=== PATIENT | female | born 1940 | race Caucasian/White ===

== ENCOUNTER 2018-10-03 11:25 | Emergency (ER) | payer MEDICARE, BC, SELFPAY ==
[2018-10-03 11:26] VITALS: BP 191/94; BP 192/96; PULSE 100; PULSE 101; RESP 17; RESP 18; TEMP 36.9; O2SAT 98; BMI 31.3
--- NOTE | 2018-10-03 11:48 | EKG12_ITS ---
Test Reason : CHEST HEAVINESS Blood Pressure : / mmHG Vent. Rate : 091 BPM Atrial Rate : 091 BPM P-R Int : 170 ms QRS Dur : 088 ms QT Int : 376 ms P-R-T Axes : 051 016 038 degrees QTc Int : 462 ms Normal sinus rhythm Normal ECG Confirmed by MALLY SCHWARTZ, LALA ([id number]), pictures editor VERO MARIE ([id number]) on 10/04/2018 11:48:46 AM Referred By: LUIS MANUEL Confirmed By:LALA BAL MD
--- NOTE | 2018-10-03 11:52 | ED.VIS.GEN ---
History of Present Illness Chief Complaint: Hypertension Informant: Patient, Family Onset: Today - Systolic blood pressure greater than 200 Context: Sudden Onset Timing: Intermittent, Waxes and wanes Quality: Multiple elevated blood pressure readings over the past week Location: Home Current Severity: Moderate Maximum Severity: Moderate Worsened by: Nothing Relieved by: Nothing Associated Symptoms: Bifrontal headache Narrative: Patient is a 78-year-old woman who is presently on losartan and amlodipine. She reports compliance with her meds and no adjustment in dosage. She does not know the strength of her medication. She denies change in vision, blurred vision, partial or complete loss of vision or double vision. She denies cardiac respiratory symptoms. She denies GI symptoms. She denies difficulty with swallowing or change in voice or difficulty speaking. She denies problems with balance or vertigo. She denies paresthesia, anesthesia motor weakness upper lower extremity. Prior similar symptoms: No Recent Illness/Hospitalization: No Past Medical History - Allergies and Home Meds Allergies/Adverse Reactions: Allergies Sulfa (Sulfonamide Antibiotics) Allergy (Verified 10/03/18 11:26) Unknown Primary Care Physician: Gonsalo Sanchez MD [Primary Care Provider] - Prior records reviewed: Yes - History of depression and hypertension Surgical History: noncontributory Lives: Alone Smoking Status: Current every day smoker Alcohol: None Drugs: None Review of Systems General: Denies: Chills, Fever, Sweats Eyes: Denies: Visual changes - bilaterally, Blurred Vision - bilaterally, Diplopia ENT: Denies: Bilateral ear pain, Rhinorrhea, Sore throat Cardiovascular: Denies: Chest pain, Palpitations, Heart racing Respiratory: Denies: Dyspnea, Cough, Dyspnea on exertion Gastrointestinal: Denies: Abdominal pain, Nausea, Vomiting, Diarrhea, Melena, Hematochezia Genitourinary: Denies: Dysuria, Hematuria, Frequency Musculoskeletal: Denies: Myalgias, Arthralgias, Neck pain, Back pain, Swelling, Extremity Pain Skin: Denies: Rash, Wounds Neurological: Reports: Headache. Denies: Weakness, Parasthesia, Numbness, -, - Psych: Reports: Depression Endocrine: Denies: Polyuria, Polydipsia Hematologic: Denies: Easy bruising, Easy bleeding Physical Exam Vital Signs/Narrative: Vital Signs Temp Pulse Resp BP Pulse Ox 10/03/18 11:26 98.4 F 101 H 17 191/94 H 98 Inital Vital Signs reviewed: Yes General: Well nourished, Well developed, No Acute Distress Head: Normocephalic, Atraumatic Eyes: Perrl, EOMI. Negative for: Pale conjunctiva, Scleral icterus, - - Funduscopic exam reveals normal cup-to-disc ratio and no papilledema. There is no nystagmus. ENT: Moist mucous membranes, No rhinorrhea, TM's clear. Negative for: Nasal congestion, Sinus tenderness Neck: Supple, Nontender, No lymphadenopathy, No JVD Cardiovascular: Regular rate, Regular rhythm, No murmurs, Normal S1, Normal S2 Respiratory: No distress, CTA bilaterally, Chest nontender Abdomen: Soft, Nontender, Nondistended, Normal bowel sounds Back: Nontender, Normal Inspection Extremities: Nontender, No edema Skin: Normal color, No rash Neurological: Alert, Oriented x3, Cranial nerves II-XII grossly intact, Normal Strength, Normal Sensation, Normal DTR, - - Finger-nose to finger was performed adequately. Psychological: Normal affect, Normal Mood Diagnostic/Tx/Re-eval Laboratory Results 10/03/18 10/03/18 12:05 13:40 Sodium 127 L Potassium 4.1 Chloride 94 L Carbon Dioxide 23.0 Anion Gap 10 BUN 8 Creatinine 0.79 Estim Creat Clear Calc 33.84 Est GFR (MDRD) Af Amer 91 Est GFR (MDRD) Non-Af 75 BUN/Creatinine Ratio 10.2 Glucose 120 H Calcium 9.1 Urine Color Straw Urine Clarity Clear Urine pH 7.0 Ur Specific [place] 1.005 Urine Protein Negative Urine Glucose (UA) Normal Urine Ketones Negative Urine Occult Blood Negative Urine Nitrite Negative Urine Bilirubin Negative Urine Urobilinogen Normal Ur Leukocyte Esterase Negative Urine RBC 0 SEEN Urine WBC 0 SEEN Ur Squamous Epith Cells 0 SEEN Urine Bacteria 0 SEEN Urine Mucus 0 SEEN - Medical Decision Making EKG and blood work was obtained to assess for endorgan injury. Will assess blood pressure. If it remains high will treat. Blood work is remarkable hyponatremia. No prior labs for comparison. She denies any symptoms therefore presume chronic. ED Disposition - Plan for ED Patient: Disposition: Home or Assisted Living Diagnosis: Accelerated hypertension, Hyponatremia Instructions: ED Hypertension Conf Out Of Control, ED Hyponatremia Referrals: Gonsalo Sanchez MD [Primary Care Provider] - 5-7 Days
[2018-10-03 12:25] LABS: Anion Gap 10 (5-15); BUN 8 mg/dL (7-18); BUN/Creat Ratio 10.2 RATIO (10-20); Calcium,Total 9.1 mg/dL (8.5-10.1); Chloride 94 mmol/L (98-107); Creatinine, Serum 0.79 mg/dL (0.55-1.02); EST Glomerular Filtration Rate 75 mL/min (>60); Est Glom Filt Rate - Afr Amer 91 mL/min (>60); Estimated Creatinine Clearance 33.84 ml/min; Glucose 120 mg/dL (74-106); Potassium 4.1 mmol/L (3.5-5.1); Sodium Level 127 mmol/L (136-145)
[2018-10-03 13:39] VITALS: BP 158/86; PULSE 77; RESP 16; O2SAT 98
[2018-10-03 13:47] LABS: Bacteria 0 SEEN /hpf (None Seen); Mucous, Urine 0 SEEN /hpf (<or=2+); Red Blood Cells-Urine 0 SEEN /hpf (0-5); Squamous Epithelial Cells - UA 0 SEEN /hpf (5-10); White Blood Cells 0 SEEN /hpf (0-5)
[2018-10-03 13:50] LABS: Color, Urine Straw (Yellow); Glucose, Dipstick Normal (Normal); Ketone-Dipstick Negative (Negative); Leukocyte Esterase-Dipstick Negative /ul (Negative); Nitrite-Dipstick Negative (Negative); Occult Blood-Urine Negative /ul (Negative); Protein-Dipstick Negative (Negative); Specific Gravity, Urine 1.005 (1.002-1.030); Urine Bilirubin Dipstick Negative (Negative); Urine Clarity Clear (Clear); Urine Urobilinogen Normal (Normal)
[2018-10-03 14:12] VITALS: BP 168/81; PULSE 96; RESP 17; O2SAT 100
== END 2018-10-03 14:21 | disposition home or self-care (01) ==
PROVIDERS: Emergency Provider Emergency Medicine; Family Provider Internal Medicine; PCP Internal Medicine
DX: I10 Essential (primary) hypertension (principal); E87.1 Hypo-osmolality and hyponatremia; F32.9 Major depressive disorder, single episode, unspecified; F17.200 Nicotine dependence, unspecified, uncomplicated; Z79.899 Other long term (current) drug therapy
CPT/HCPCS: 80048; 81001; 93005; 99285

== ENCOUNTER → 2019-10-18 11:11 | Outpatient (CLI) | payer MEDICARE, BC, SELFPAY ==
[2019-10-18 11:41] LABS: BNP,B-Type NATRIURETIC PEPTIDE 215.6 pg/mL (0-100)
== END ==
PROVIDERS: Referring Provider Nurse Practitioner; Visit Provider Nurse Practitioner
DX: R60.0 Localized edema (principal); R06.02 Shortness of breath
CPT/HCPCS: 83880

== ENCOUNTER 2020-04-23 18:04 | Inpatient (IN) | payer MEDICARE, BC, SELFPAY ==
[2020-04-23] VITALS (7 sets, daily range): BP systolic 123–151; BP diastolic 56–69; PULSE 76–90; RESP 15–26; TEMP 37–37.2; O2SAT 94–100; BMI 29.5
--- NOTE | 2020-04-23 18:54 | EKG12_ITS ---
Test Reason : SOB Blood Pressure : / mmHG Vent. Rate : 079 BPM Atrial Rate : 079 BPM P-R Int : 112 ms QRS Dur : 078 ms QT Int : 400 ms P-R-T Axes : 035 005 033 degrees QTc Int : 458 ms Sinus rhythm with Premature supraventricular complexes Nonspecific T wave abnormality Abnormal ECG Confirmed by MICHAEL SCHWARTZ, NAHEED ([id number]), legal editor NERISSA OSBORN ([id number]) on 04/25/2020 10:50:14 AM Referred By: Regan Ulrich Confirmed By:NAHEED RODRIGUEZ MD
--- NOTE | 2020-04-23 19:18 | ED.DCSUM_ITS ---
History of Present Illness Chief Complaint: Shortness of Breath Informant: Patient, Family Onset: Days Context: Gradual Onset Timing: Continuous Current Severity: Moderate Maximum Severity: Moderate Narrative: The patient is a 79-year-old female presents to the emergency department multiple complaints. The patient lives by herself. She has a history of hypertension, anxiety, and prior alcohol abuse. She states that about a month ago, she fell. She states since then, she had a difficult time walking because of pain in her right leg. Over the past 2 days, she has been increasingly weak and short of breath. She denies fevers or chills. She denies any change in taste or smell. She denies any other systemic complaints. History is hard to gather from the patient. I did discuss this with her daughter who states that she seemed to be doing well, but over the past month has had more of a decline. She does live by herself. Prior similar symptoms: No Recent Illness/Hospitalization: No Past Medical History - Allergies and Home Meds Allergies/Adverse Reactions: Allergies Sulfa (Sulfonamide Antibiotics) Allergy (Verified 04/23/20 18:10) Unknown Primary Care Physician: Gonsalo Sanchez MD [Primary Care Provider] - Prior records reviewed: Yes Past Medical History: - - Prior alcohol abuse, hypertension, anxiety Surgical History: noncontributory Smoking Status: Current every day smoker Review of Systems General: Denies: Chills, Fever, Sweats Eyes: Denies: Visual changes - bilaterally, Diplopia ENT: Denies: Rhinorrhea, Sore throat Cardiovascular: Denies: Chest pain, Palpitations Respiratory: Reports: Dyspnea, Cough. Denies: Dyspnea on exertion Gastrointestinal: Reports: Nausea. Denies: Abdominal pain, Vomiting, Diarrhea, Melena, Hematochezia Genitourinary: Denies: Dysuria, Hematuria, Frequency Musculoskeletal: Denies: Back pain, Extremity Pain Skin: Denies: Rash, Wounds Neurological: Denies: Headache, Weakness, Numbness Physical Exam Vital Signs/Narrative: Vital Signs Temp Pulse Resp BP Pulse Ox 04/23/20 18:09 98.9 F 83 26 H 128/69 H 94 04/23/20 18:04 98.9 F 83 20 H 128/69 H 94 Inital Vital Signs reviewed: Yes General: Well nourished, Well developed, No Acute Distress Head: Normocephalic, Atraumatic Eyes: Perrl, EOMI ENT: Moist mucous membranes, No rhinorrhea Neck: Supple, Nontender Cardiovascular: Regular rate, Regular rhythm, No murmurs Respiratory: No distress, Chest nontender, Wheezing Abdomen: Soft, Nontender, Nondistended, Normal bowel sounds Back: Nontender, Normal Inspection Extremities: Nontender, No edema Skin: Normal color, No rash Neurological: Alert, Oriented x3, Cranial nerves II-XII grossly intact, Normal Strength, Normal Sensation Psychological: Normal affect, Normal Mood Diagnostic/Tx/Re-eval Chest X-Ray - ED: 1 View, Read by ED Physician, Normal, Heart, Mediastinum, Bony Structures, Chronic Changes, No Infiltrates Clinical Impression(s) from Imaging Studies Brain CT 04/23/20 19:20 IMPRESSION: Possible sphenoid sinusitis otherwise no acute intracranial disease Electronically Signed: German Huerta MD at 20:42 EST , Service support , Chest X-Ray 04/23/20 19:20 IMPRESSION: No acute disease Electronically Signed: German Huerta MD at 21:11 EST , Service support , Abnormal Lab Results 04/23/20 04/23/20 04/23/20 19:15 19:15 19:15 WBC 7.0 RBC 4.51 Hgb 14.3 Hct 41.8 MCV 92.7 MCH 31.7 MCHC 34.2 RDW Std Deviation 43.3 RDW Coeff of Kacy 12.5 Plt Count 243 MPV 10.1 Immature Gran % (Auto) 0.400 Neut % (Auto) 78.2 H Lymph % (Auto) 11.5 L [place] % (Auto) 9.8 Eos % (Auto) 0.0 Baso % (Auto) 0.1 Absolute Neuts (auto) 5.5 Absolute Lymphs (auto) 0.81 L Nucleated RBC % 0 Sodium 133 L Potassium 3.7 Chloride 101 Carbon Dioxide 23.0 Anion Gap 9 BUN 22 H Creatinine 1.19 H Estim Creat Clear Calc 27.99 Est GFR (MDRD) Af Amer 56 L Est GFR (MDRD) Non-Af 47 L BUN/Creatinine Ratio 18.5 Glucose 129 H Calcium 8.8 Total Bilirubin 0.70 AST 50 H ALT 30 Alkaline Phosphatase 91 Troponin I < 0.015 B-Natriuretic Peptide 101.3 H Total Protein 7.8 Albumin 4.1 Globulin 3.7 Albumin/Globulin Ratio 1.1 Urine Color Urine Clarity Urine pH Ur Specific [place] Urine Protein Urine Glucose (UA) Urine Ketones Urine Occult Blood Urine Nitrite Urine Bilirubin Urine Urobilinogen Ur Leukocyte Esterase Urine RBC Urine WBC Ur Squamous Epith Cells Amorphous Sediment Urine Bacteria Urine Mucus 04/23/20 20:35 WBC RBC Hgb Hct MCV MCH MCHC RDW Std Deviation RDW Coeff of Kacy Plt Count MPV Immature Gran % (Auto) Neut % (Auto) Lymph % (Auto) [place] % (Auto) Eos % (Auto) Baso % (Auto) Absolute Neuts (auto) Absolute Lymphs (auto) Nucleated RBC % Sodium Potassium Chloride Carbon Dioxide Anion Gap BUN Creatinine Estim Creat Clear Calc Est GFR (MDRD) Af Amer Est GFR (MDRD) Non-Af BUN/Creatinine Ratio Glucose Calcium Total Bilirubin AST ALT Alkaline Phosphatase Troponin I B-Natriuretic Peptide Total Protein Albumin Globulin Albumin/Globulin Ratio Urine Color Yellow Urine Clarity Clear Urine pH 5.0 Ur Specific [place] 1.020 Urine Protein 30 H Urine Glucose (UA) Normal Urine Ketones 50 H Urine Occult Blood 25 H Urine Nitrite Negative Urine Bilirubin Negative Urine Urobilinogen 1 H Ur Leukocyte Esterase Negative Urine RBC 0 SEEN Urine WBC 0 SEEN Ur Squamous Epith Cells 0 SEEN Amorphous Sediment 1+ Urine Bacteria 1+ Urine Mucus 0 SEEN - Rhythm Strip Rhythm Strip: Sinus Rhythm Rate: 80 Ectopy: None - Medical Decision Making Patient presents to the emergency department multiple complaints. Over the past few days, she has been more short of breath. She has had a scant cough. She denies any fevers or chills. Covid was obtained was negative. Her chest x-ray does not show any focal infiltrative process. It was reviewed by both myself and the radiologist. I obtained head CT given her generalized weakness. This was also negative. Urine does not show evidence of infection. Patient's labs are relatively unremarkable. She did have pain in her right hip after her fall. I did obtain some plain films. These were reviewed by myself. There is no evidence of fracture dislocation. The patient has persistent bronchospasm and exertional dyspnea. We did attempt to ambulate the patient, however she became acutely tachypneic with some moderate respiratory distress. With just standing to the bedside, she became hypoxic to 87%. At this point, I do feel that she would benefit from admission for COPD exacerbation for continued respiratory care. The patient was discussed with the hospitalist. Impression 1. COPD exacerbation 2. Difficulty with ambulation ED Disposition - Plan for ED Patient: Referrals: Gonsalo Sanchez MD [Primary Care Provider] -
--- NOTE | 2020-04-23 19:20 | RAD_ITS ---
STUDY: X-RAY CHEST REASON FOR EXAM: Female, 79 years old. INCREASED SOB, WEAKNESS. TECHNIQUE: Single frontal view of the chest. COMPARISON: 12/18/2010 FINDINGS: Bilateral calcified granulomas. The lungs are clear and expanded. There is no demonstrated pleural abnormality. Normal size heart. Calcified left hilar nodes. Normal visualized pulmonary arteries. Normal visualized aortic arch and descending thoracic aorta. Scoliosis. Normal visualized ribs, clavicles, and shoulders. There is no demonstrated abnormality of the visualized soft tissue structures of the upper abdomen. RAD/Chest 1 View (Portable) IMPRESSION: No acute disease Electronically Signed: German Huerta MD at 21:11 EST , Service support ,
--- NOTE | 2020-04-23 19:20 | CT_ITS ---
STUDY: CT BRAIN WITHOUT CONTRAST REASON FOR EXAM: Female, 79 years old. INCREASE SOB WITH WEAKNESS RADIATION DOSAGE (If Supplied By Facility): CTDIvol = ( 44.99 ) mGy, DLP = ( 762.36 ) mGycm TECHNIQUE: Transaxial CT imaging of the brain was performed without administration of intravenous contrast material. Individualized dose optimization techniques were used for this CT. COMPARISON: No relevant priors. FINDINGS: Normal soft tissue structures. Normal calvarium. There is mild cerebral atrophy with widening of the extra-axial spaces and ventricular dilatation. There are areas of decreased attenuation within the white matter tracts of the supratentorial brain, consistent with microvascular disease changes. Intracranial atherosclerosis. Normal basal ganglia and thalami. Normal brainstem. Normal cerebellum. There is no intracranial hemorrhage. There are no findings of an acute ischemic infarction. Air-fluid level in the sphenoid sinus. CT/Brain/Head without Contrast IMPRESSION: Possible sphenoid sinusitis otherwise no acute intracranial disease Electronically Signed: German Huerta MD at 20:42 EST , Service support ,
[2020-04-23 19:32] LABS: Absolute Lymphocyte Count 0.81 X10^3/uL (0.83-4.51); Absolute Neutrophil Count 5.5 X10^3/uL (2.0-7.7); Basophil# 0.01 X10^3/uL; Basophil% 0.1 % (0-1); Hematocrit 41.8 % (37-47); Hemoglobin 14.3 g/dL (12.0-15.0); Lymphocyte # 0.81 X10^3/ul (4.0); Lymphocyte % 11.5 % (19-41); Mean Corp Hgb Conc 34.2 g/dL (32-36); Mean Corpuscular Hgb 31.7 pg (27.0-32.0); Mean Corpuscular Volume 92.7 fL (81-99); Mean Platelet Vol. 10.1 fl (6.2-12.0); Monocyte# 0.69 X10^3/uL; Monocyte% 9.8 % (0-10); NRBC Flagged by Analyzer 0 % (0-5); Neutrophil # 5.49 X10^3/uL (2.7-7.7); Neutrophil % 78.2 % (47-70); Platelet Count 243 K/mm3 (150-450); RBC Distribution Width CV 12.5 % (11.6-14.6); RBC Distribution Width SD 43.3 fl (35.1-43.9); Red Blood Count 4.51 M/mm3 (4.2-5.4)
[2020-04-23 19:54] LABS: BNP,B-Type NATRIURETIC PEPTIDE 101.3 pg/mL (0-100)
[2020-04-23 19:56] LABS: ALB/GLOB Ratio 1.1 RATIO (0.9-2.4); AST(SGOT) 50 U/L (15-37); Alanine Aminotransfer ALT/SGPT 30 U/L (13-56); Albumin, Serum 4.1 g/dL (3.2-5.0); Alkaline Phosphatase 91 U/L (45-117); Anion Gap 9 (5-15); BUN 22 mg/dL (7-18); BUN/Creat Ratio 18.5 RATIO (10-20); Calcium,Total 8.8 mg/dL (8.5-10.1); Chloride 101 mmol/L (98-107); Creatinine, Serum 1.19 mg/dL (0.55-1.02); EST Glomerular Filtration Rate 47 mL/min (>60); Est Glom Filt Rate - Afr Amer 56 mL/min (>60); Estimated Creatinine Clearance 27.99 ml/min; Globulin 3.7 g/dL (2.2-4.2); Glucose 129 mg/dL (74-106); Potassium 3.7 mmol/L (3.5-5.1); Protein, Total 7.8 g/dL (6.4-8.2); Sodium Level 133 mmol/L (136-145)
[2020-04-23 20:49] LABS: Mucous, Urine 0 SEEN /hpf (<or=2+); Red Blood Cells-Urine 0 SEEN /hpf (0-5); Squamous Epithelial Cells - UA 0 SEEN /hpf (5-10); White Blood Cells 0 SEEN /hpf (0-5)
[2020-04-23 20:56] LABS: Color, Urine Yellow (Yellow); Glucose, Dipstick Normal (Normal); Ketone-Dipstick 50 mg/dl (Negative); Leukocyte Esterase-Dipstick Negative /ul (Negative); Nitrite-Dipstick Negative (Negative); Occult Blood-Urine 25 /ul (Negative); Protein-Dipstick 30 mg/dl (Negative); Urine Bilirubin Dipstick Negative (Negative); Urine Clarity Clear (Clear); Urine Urobilinogen 1 mg/dl (Normal)
[2020-04-23 20:58] LABS: Amorphous Sediment 1+; Bacteria 1+ /hpf (None Seen)
--- NOTE | 2020-04-23 21:08 | RAD_ITS ---
STUDY: X-RAY - PELVIS AND RIGHT HIP REASON FOR EXAM: Female, 79 years old. FALL ABOUT A MONTH AGO, DIFFICULTY WALKING SINCE, PAIN IN RT LEG TECHNIQUE: 3 views of the pelvis and hip. COMPARISON: None. FINDINGS: There is a non-specific bowel gas pattern. Normal visualized soft tissue structures. Small ossific density lateral to the acetabulum on the right. Normal bilateral iliac wings, sacroiliac joints and visualized sacrum. Normal bilateral superior and inferior pubic rami. Normal pubic symphysis. Normal bilateral ischial tuberosities. Normal visualized femoral head. Normal acetabulum. Normal hip joint. RAD/HIP, UNI W/ Pelvis 2-3 Views IMPRESSION: Probable periarticular dystrophic calcification versus avulsion fracture, age indeterminate, superior lateral to the acetabulum on the right. Electronically Signed: German Huerta MD at 22:10 EST , Service support ,
[2020-04-23] MEDS: Ipratropium/Albuterol Sulfate 3 ML AMPUL.NEB INHALATION (21:40)
--- NOTE | 2020-04-23 21:43 | ED.RN ---
PT WAS ONLY ABLE TO SIT AT THE SIDE OF BED. SHAKY AND DYSPNEA WITH EXERTION. UNABLE TO AMBULATE
--- NOTE | 2020-04-23 21:51 | ED.RN ---
DAUGHTER CONTACTED IN REGARDS TO ADMISSION. NOTIFIED SHE WOULD BE ADMITTED BUT UNSURE OF WHAT FLOOR YET. DAUGHTER UNDERSTANDS SHE WILL CALL THE [facility] LINE IN THE MORNING TO FIND WHERE SHE GOT ADMITTED AND GO FROM THERE.
[2020-04-23] MEDS: MethylPREDNISolone 125 MG/2 ML Vial IV (22:00)
--- NOTE | 2020-04-23 23:19 | HP.PCM_ITS ---
Problem List (1) History of alcohol abuse Status: Chronic (2) Depression Status: Chronic (3) Hypertension Status: Chronic History of Present Illness Date of Admission: 04/23/20 Chief Complaint: Reported shortness of breath, patient is a very poor informant. The patient is a 79 year old F with past medical history as mentioned above presented to the emergency room because of reported shortness of breath. At this time, patient is alert and oriented x3 but she is a very poor informant. She mentioned that she lives with her and daughter but reportedly, she lives by herself. She came to the emergency department today because of multiple complaints. She has been falling, had a mechanical fall around 1 month ago and since then, she has been having difficulties walking because of pain in her right leg. Over the last 2 days, reportedly she became increasingly weak and short of breath. She reported associated wheezing as well and mild cough. Denied fever or chills. ER physician spoke with the patient's daughter mentioned that her mother has been declining over the last month and she does live by herself. She rested hypertension which has been under control with Norvasc and losartan. She will history of depression and she has been on BuSpar and paroxetine. She history of alcohol abuse but currently, she is sober and denied active alcohol drinking. In the emergency department, she was afebrile, blood pressure and heart rate were stable, pulse ox was 94% on room air and she required 2 L of oxygen. Routine blood work was remarkable for mild hyponatremia which is chronic, BUN of 22, creatinine is 1.19. LFT was unremarkable. Troponin was normal. EKG showed no acute changes. Urinalysis showed no evidence of active infection. CT scan brain showed no acute findings. Chest x- ray showed no acute infiltrate or consolidation. X-ray of the pelvis and right hip revealed probable periarticular dystrophic calcification versus avulsion f racture superior lateral to the right acetabulum. COVID-19 antigen came back negative. COVID-19 PCR came back positive. Patient is being admitted for COVID-19 with hypoxia as well as left hip pain with suspected avulsion fracture. Past Medical History Past Medical History (Chronic Problems): Chronic Problems History of alcohol abuse (Chronic) Depression (Chronic) Hypertension (Chronic) Allergies Sulfa (Sulfonamide Antibiotics) Allergy (Verified 04/23/20 18:10) Unknown Home Medications: Ambulatory Orders Medication Instructions Recorded Amlodipine [Norvasc] 5 mg PO DAILY 10/03/18 Losartan Potassium 100 mg PO DAILY 10/03/18 Pantoprazole Sodium 40 mg PO DAILY 10/03/18 Paroxetine HCl [Paroxetine ER] 37.5 mg PO DAILY 10/03/18 busPIRone [Buspar] 15 mg PO TID PRN 10/03/18 Surgical History: hysterectomy, - - section. Psychiatric History: Depression OBSTETRICS/GYNECOLOGY NURSE History: No pertinent OBSTETRICS/GYNECOLOGY NURSE history Lives: Alone Smoking Status: Current some day smoker Tobacco Use: Cigarettes Alcohol: Rare Drugs: None - *Family History Maternal History Items: No pertinent history Paternal History Items: No pertinent history Review of Systems Constitutional: Denies: Anorexia, Chills, Fever, Weakness Eyes: Denies: Blurred vision, Double vision, Drainage, Redness HEENT: Denies: Difficulty Hearing, Ear Pain, Eye Pain, Nasal Congestion, Sore Throat Cardiovascular: Denies: Chest Pain, Chest Pressure, Heaviness, Light Headedness, Palpitations, Syncope Respiratory: Reports: Cough, Shortness of Breath, Wheezing. Denies: Sputum production Gastrointestinal: Denies: Abdominal Pain, Constipation, Diarrhea, Nausea, Vomiting Genitourinary: Denies: Dysuria, Frequency, Hematuria Musculoskeletal: Denies: Arm Pain, Back Pain, Foot Pain Skin: Denies: Dryness, Rash Neurological: Denies: Balance problems, Double vision, Change in Speech, Slurred speech, Confusion, Headaches, Incoordination Psychiatric: Reports: Depression. Denies: Anxiety Endocrine: Denies: Change in Body Habitus, Polydipsia, Polyuria VTE Information - Inpt Only VTE Present on Admission: No VTE Mechan Device Prophylaxis: None VTE Pharm Prophylaxis ordered?: Yes - Physical Exam Vitals/I&O's: Vital Signs Temp Pulse Resp BP Pulse Ox 98.6 F 79 15 151/66 H 96 04/23/20 22:03 04/23/20 22:03 04/23/20 22:03 04/23/20 22:03 04/23/20 22:03 Oxygen Flow Rate (L/min) 2 Oxygen Delivery Method Nasal Cannula Weight: 151 lb Body Mass Index (BMI) 29.5 General: Alert, Oriented x3, Cooperative, No apparent distress HEENT: Atraumatic, PERRLA, EOMI, Normocephalic Oral: Moist Mucosa, No Gingival or Mucosal Lesions/ Ulcerations Neck: Supple, No JVD, Negative Carotid Bruits Lungs: Clear to auscultation, No rhonchi, No wheeze, No rales, Diminished Cardiovascular: Regular rate, Regular Rhythm, Normal S1, Normal S2, PMI Normal Abdomen: Bowel Sounds Present, Soft, Non Tender, Non-Distended, No Hepato- splenomegaly Extremities: No clubbing, No cyanosis, No edema Skin: No rashes, No breakdown Lymphatic: No Cervical, Supraclavicular, or Inguinal Adenopathy Neurological: Cranial nerves II-XII grossly intact, Motor Exam 5/5 strength throughout Psych/Mental Status: Normal Affect, Appropriate Microbiology Past 72 Hours 04/23/20 20:20 Mucosa - Nose SARS-CoV-2 Antigen (Rapid) - Final Laboratory Results 04/23/20 19:15: WBC 7.0, RBC 4.51, Hgb 14.3, Hct 41.8, MCV 92.7, MCH 31.7, MCHC 34.2, RDW Std Deviation 43.3, RDW Coeff of Kacy 12.5, Plt Count 243, MPV 10.1, Immature Gran % (Auto) 0.400, Neut % (Auto) 78.2 H, Lymph % (Auto) 11.5 L, Ocean % (Auto) 9.8, Eos % (Auto) 0.0, Baso % (Auto) 0.1, Absolute Neuts (auto) 5.5, Absolute Lymphs (auto) 0.81 L, Nucleated RBC % 0 04/23/20 19:15: Sodium 133 L, Potassium 3.7, Chloride 101, Carbon Dioxide 23.0, Anion Gap 9, BUN 22 H, Creatinine 1.19 H, Estim Creat Clear Calc 27.99, Est GFR (MDRD) Af Amer 56 L, Est GFR (MDRD) Non-Af 47 L, BUN/Creatinine Ratio 18.5, Glucose 129 H, Calcium 8.8, Total Bilirubin 0.70, AST 50 H, ALT 30, Alkaline Phosphatase 91, Troponin I < 0.015, Total Protein 7.8, Albumin 4.1, Globulin 3.7, Albumin/Globulin Ratio 1.1 04/23/20 19:15: B-Natriuretic Peptide 101.3 H 04/23/20 20:35: Urine Color Yellow, Urine Clarity Clear, Urine pH 5.0, Ur Specific [place] 1.020, Urine Protein 30 H, Urine Glucose (UA) Normal, Urine Ketones 50 H, Urine Occult Blood 25 H, Urine Nitrite Negative, Urine Bilirubin Negative, Urine Urobilinogen 1 H, Ur Leukocyte Esterase Negative, Urine RBC 0 SEEN, Urine WBC 0 SEEN, Ur Squamous Epith Cells 0 SEEN, Amorphous Sediment 1+, Urine Bacteria 1+, Urine Mucus 0 SEEN 04/23/20 22:30: COVID-19 (ROXANA) Pending Clinical Impression(s) from Imaging Studies Brain CT 04/23/20 19:20 IMPRESSION: Possible sphenoid sinusitis otherwise no acute intracranial disease Electronically Signed: German Huerta MD at 20:42 EST , Service support , Chest X-Ray 04/23/20 19:20 IMPRESSION: No acute disease Electronically Signed: German Huerta MD at 21:11 EST , Service support , Hip/Pelvis X-Ray 04/23/20 21:08 IMPRESSION: Probable periarticular dystrophic calcification versus avulsion fracture, age indeterminate, superior lateral to the acetabulum on the right. Electronically Signed: German Huerta MD at 22:10 EST , Service support , Assessment/Plan This is a 79 years old female patient who is a very poor informant presented to the emergency room because of reported frequent falls and shortness of breath, found to have COVID-19 PCR positive with possible acute exacerbation of suspected COPD as well as questionable right hip avulsion fracture and she is being admitted for evaluation and treatment. #1 acute COVID-19/possible exacerbation of suspected COPD: Patient is very poor informant, she does not know if she has COPD or not. She does smoke every day for a long time. She is currently wheezing, requiring oxygen up 4 L, initially was on 2 L. Chest x-ray showed no acute findings. She received 1 dose of IV Solu-Medrol in the ED. COVID-19 antigen is negative but COVID-19 PCR came back positive. Plan: Admit to MedSurg floor COVID-19 floor, isolation precautions, start IV Decadron and IV remdesivir, albuterol inhaler as needed, infectious disease consult, Robitussin twice daily, incentive spirometer, check serum LDH, procalcitonin, D-dimer, CPK, repeat CBC and BMP tomorrow morning, PT OT evaluation and treatment. #2 recent fall/right leg/right hip pain: X-ray of the pelvis and right hip reviewed. Plan for CT scan of the right hip, IV morphine as needed for pain, OxyIR as needed for pain, PT OT evaluation and treatment. #3 mild hyponatremia/dehydration: She does have chronic hyponatremia likely because of history of alcohol abuse. She looks dehydrated. Plan for gentle IV fluids for hydration, repeat BMP tomorrow morning. #4 hypertension: Blood pressure stable, continue Norvasc and losartan. #5 depression: Continue BuSpar and paroxetine. #6 history of alcohol abuse: Currently, she drinks only occasionally according to the patient. #7 DVT prophylaxis: Subcu Lovenox twice daily. This note was generated with [employer] dictation software. It may contain incorrect words, spelling, and punctuation that were not noted in checking the note before signing. Inpatient E&M: 57085 Init Hosp L3
[2020-04-24] VITALS (14 sets, daily range): BP systolic 112–151; BP diastolic 46–78; PULSE 75–94; RESP 16–24; TEMP 36.3–36.8; O2SAT 88–96; BMI 29.2; BMI 29.3
[2020-04-24] MEDS: Ipratropium/Albuterol Sulfate 3 ML AMPUL.NEB INHALATION (00:18)
--- NOTE | 2020-04-24 02:08 | CT_ITS ---
STUDY: CT PELVIS WITHOUT CONTRAST REASON FOR EXAM: Female, 79 years old patient presents for follow-up of radiographic findings suggesting avulsion fracture of the right femur. RADIATION DOSAGE (If Supplied By Facility): CTDIvol = ( 28.13 ) mGy, DLP = ( 932.51 ) mGycm TECHNIQUE: Transaxial imaging of the pelvis was performed without oral contrast, and without intravenous administration of contrast material. Multiplanar coronal and sagittal images were reformatted. Individualized dose optimization techniques were used for this CT. COMPARISON: None. FINDINGS: Normal urinary bladder. There is no evidence for dilated bowel, ascites or pneumoperitoneum. Small bowel has a grossly normal appearance. Minimal stool is visible in the colon. There is no pelvic fluid. There is no pelvic mass lesion or lymphadenopathy. There is absence of the uterus consistent with a prior hysterectomy. There is diffuse atherosclerotic calcification of the pelvic arteries. Normal abdominal wall. There is narrowing of L4-5 disc space with vacuum disc phenomenon consistent with degenerative disc disease. Both hips have a normal appearance. There is a small calcification near the right superior acetabulum that may represent the sequela of previous trauma. Superior and inferior pubic rami within normal limits. The proximal femurs have a normal appearance. CT/Pelvis without IV Contrast IMPRESSION: 1. Nonspecific calcification and/or ossification near the right superior lateral acetabulum. This is probably not sequela of acute trauma. 2. There is no CT evidence to suggest acute fracture or dislocation.. Electronically Signed: Morena Estrada MD at 4:18 EST , Service support ,
[2020-04-24 02:40] LABS: CPK Total, Creatine Kinase 995 U/L (26-192)
[2020-04-24 02:47] LABS: Procalcitonin 0.09 ng/mL (0.00-0.09)
[2020-04-24] MEDS: dexAMETHasone 4 MG/ML Vial 6 MG IV ×2 (03:50→09:08)
[2020-04-24] MEDS: 0.9% Normal Saline 1,000 ML 75 ML IV (03:50)
[2020-04-24] MEDS: 0.9% Saline Lock 10 ML Syringe IV ×2 (03:54→09:09)
[2020-04-24 06:50] LABS: Bedside Glucose 182 mg/dL (70-110)
[2020-04-24 07:17] LABS: Absolute Lymphocyte Count 0.42 X10^3/uL (0.83-4.51); Absolute Neutrophil Count 2.7 X10^3/uL (2.0-7.7); Basophil# 0.01 X10^3/uL; Basophil% 0.3 % (0-1); Hemoglobin 14.1 g/dL (12.0-15.0); Lymphocyte # 0.42 X10^3/ul (4.0); Lymphocyte % 12.8 % (19-41); Mean Corp Hgb Conc 35.3 g/dL (32-36); Mean Corpuscular Hgb 32.7 pg (27.0-32.0); Mean Corpuscular Volume 92.8 fL (81-99); Mean Platelet Vol. 9.9 fl (6.2-12.0); Monocyte# 0.11 X10^3/uL; Monocyte% 3.3 % (0-10); NRBC Flagged by Analyzer 0 % (0-5); Neutrophil # 2.73 X10^3/uL (2.7-7.7); POSITIVE DIFFERENTIAL YES; Platelet Count 230 K/mm3 (150-450); RBC Distribution Width CV 12.7 % (11.6-14.6); Red Blood Count 4.31 M/mm3 (4.2-5.4); White Blood Count 3.3 K/mm3 (4.4-11.0)
[2020-04-24 07:21] LABS: Differential Indicated SCAN CRITERIA MET
[2020-04-24 07:28] LABS: Prothrombin Time (Protime)PT. 12.4 SECONDS (11.7-14.9)
[2020-04-24 07:38] LABS: D-Dimer Quantitative (DVT/PE) 2.26 FEU/ug/m (0.27-0.49)
--- NOTE | 2020-04-24 07:41 | CT_ITS ---
STUDY: CTA CHEST REASON FOR EXAM: Female, 79 years old. SOB, + COVID, HTN, FALLS-LT HIP AVULSION RADIATION DOSAGE (If Supplied By Facility): CTDIvol = ( 9.38 ) mGy, DLP = ( 327.94 ) mGycm TECHNIQUE: The examination was performed with the intravenous administration of IV 100mL Isovue-370. Post-processing of the angiographic images was performed, with multiplanar reformation and 3D reconstruction. Individualized dose optimization techniques were used for this CT. COMPARISON: Comparison is made with prior chest radiograph dated 04/23/2020. FINDINGS: Normal enhancement of the main pulmonary artery and right and left pulmonary arteries. Normal enhancement of the bilateral peripheral pulmonary arteries. There is no demonstrated pulmonary embolism. There is atherosclerotic calcification of the aortic arch with tortuosity. There is no demonstrated aortic dissection. Normal heart and pericardium. There are calcified mediastinal lymph nodes. There are calcified left hilar lymph nodes. Normal visualized trachea and bronchi. The lungs are well expanded. Scattered calcified granulomas. Focal infiltrate in the posterior medial segment of the right lower lobe. Minimal increased markings in the posterior medial aspect of the left lower lobe. Minimal degree of groundglass appearance in the peripheral aspect of the left upper lobe. Normal pleura. Normal chest wall structures. There are degenerative changes of thoracic spine. Small hiatal hernia. CT/CTA Chest W/WO Contrast IMPRESSION: No evidence of pulmonary embolism. Focal infiltrate in the posterior medial segment of the right lower lobe. Mild increased markings at the left lung base as well as in the peripheral aspect of the left upper lobe. Electronically Signed: Lux Osorio, at 10:23 EST , Service support ,
[2020-04-24 07:52] LABS: ALB/GLOB Ratio 1.1 RATIO (0.9-2.4); AST(SGOT) 41 U/L (15-37); Alanine Aminotransfer ALT/SGPT 28 U/L (13-56); Albumin, Serum 3.6 g/dL (3.2-5.0); Alkaline Phosphatase 81 U/L (45-117); Anion Gap 8 (5-15); BUN 21 mg/dL (7-18); BUN/Creat Ratio 22.6 RATIO (10-20); Calcium,Total 8.4 mg/dL (8.5-10.1); Chloride 105 mmol/L (98-107); Creatinine, Serum 0.93 mg/dL (0.55-1.02); EST Glomerular Filtration Rate 62 mL/min (>60); Est Glom Filt Rate - Afr Amer 75 mL/min (>60); Estimated Creatinine Clearance 37.62 ml/min; Globulin 3.2 g/dL (2.2-4.2); Glucose 175 mg/dL (74-106); Potassium 3.9 mmol/L (3.5-5.1); Protein, Total 6.8 g/dL (6.4-8.2); Sodium Level 138 mmol/L (136-145)
[2020-04-24] MEDS: Enoxaparin 80 MG/0.8 ML Syringe 70 MG SC ×2 (09:08→21:11)
[2020-04-24] MEDS: guaiFENesin 600 MG Tablet PO ×2 (09:09→21:11)
--- NOTE | 2020-04-24 11:05 | CON.PCM_ITS ---
Problem List (1) COVID-19 Status: Acute Reason for Consult: covid Consulted by: Dr. Kim History of Present Illness: The patient is a 79 year old F presented with 2-3 days of weakness, cough, dyspnea, mild nausea. No fever, no change in taste smell. No diarrhea. Lives alone, no sick contacts. Came to ED, covid (+), admitted on remdesivir and dex. Feeling better today. Full ROS performed and neg except as noted above. - Medical History Past Medical History (Chronic Problems): Chronic Problems History of alcohol abuse (Chronic) Depression (Chronic) Hypertension (Chronic) Allergies/Adverse Reactions: Allergies Sulfa (Sulfonamide Antibiotics) Allergy (Verified 04/23/20 18:10) Unknown Home Medications: Ambulatory Orders Medication Instructions Recorded Amlodipine [Norvasc] 5 mg PO DAILY 10/03/18 Losartan Potassium 100 mg PO DAILY 10/03/18 Pantoprazole Sodium 40 mg PO DAILY 10/03/18 Paroxetine HCl [Paroxetine ER] 37.5 mg PO DAILY 10/03/18 busPIRone [Buspar] 15 mg PO TID PRN 10/03/18 - Social History SMOKING STATUS:: Current some day smoker Vital Signs Temp Pulse Resp BP Pulse Ox 97.8 F 94 20 H 147/77 H 93 04/24/20 09:00 04/24/20 09:00 04/24/20 09:00 04/24/20 09:00 04/24/20 09:00 Oxygen Flow Rate (L/min) 4 Oxygen Delivery Method Room Air Weight: 70.3 kg Body Mass Index (BMI) 29.2 Microbiology Past 72 Hours 04/23/20 20:20 SARS-CoV-2 Antigen (Rapid) - Final Mucosa - Nose Laboratory Tests Past 24 Hrs 04/23/20 04/23/20 04/23/20 19:15 19:15 19:15 WBC 7.0 RBC 4.51 Hgb 14.3 Hct 41.8 MCV 92.7 MCH 31.7 MCHC 34.2 RDW Std Deviation 43.3 RDW Coeff of Kacy 12.5 Plt Count 243 MPV 10.1 Immature Gran % (Auto) 0.400 Neut % (Auto) 78.2 H Lymph % (Auto) 11.5 L Lucas % (Auto) 9.8 Eos % (Auto) 0.0 Baso % (Auto) 0.1 Absolute Neuts (auto) 5.5 Absolute Lymphs (auto) 0.81 L Nucleated RBC % 0 Differential Comment Diff Path Review PT INR D-Dimer Quant (PE/DVT) Sodium 133 L Potassium 3.7 Chloride 101 Carbon Dioxide 23.0 Anion Gap 9 BUN 22 H Creatinine 1.19 H Estim Creat Clear Calc 27.99 Est GFR (MDRD) Af Amer 56 L Est GFR (MDRD) Non-Af 47 L BUN/Creatinine Ratio 18.5 Glucose 129 H Calcium 8.8 Total Bilirubin 0.70 AST 50 H ALT 30 Alkaline Phosphatase 91 Total Creatine Kinase Troponin I < 0.015 B-Natriuretic Peptide 101.3 H Total Protein 7.8 Albumin 4.1 Globulin 3.7 Albumin/Globulin Ratio 1.1 Procalcitonin Urine Color Urine Clarity Urine pH Ur Specific [place] Urine Protein Urine Glucose (UA) Urine Ketones Urine Occult Blood Urine Nitrite Urine Bilirubin Urine Urobilinogen Ur Leukocyte Esterase Urine RBC Urine WBC Ur Squamous Epith Cells Amorphous Sediment Urine Bacteria Urine Mucus COVID-19 (ROXANA) 04/23/20 04/23/20 04/23/20 19:15 19:15 20:35 WBC RBC Hgb Hct MCV MCH MCHC RDW Std Deviation RDW Coeff of Kacy Plt Count MPV Immature Gran % (Auto) Neut % (Auto) Lymph % (Auto) Lucas % (Auto) Eos % (Auto) Baso % (Auto) Absolute Neuts (auto) Absolute Lymphs (auto) Nucleated RBC % Differential Comment Diff Path Review PT INR D-Dimer Quant (PE/DVT) Sodium Potassium Chloride Carbon Dioxide Anion Gap BUN Creatinine Estim Creat Clear Calc Est GFR (MDRD) Af Amer Est GFR (MDRD) Non-Af BUN/Creatinine Ratio Glucose Calcium Total Bilirubin AST ALT Alkaline Phosphatase Total Creatine Kinase 995 H Troponin I B-Natriuretic Peptide Total Protein Albumin Globulin Albumin/Globulin Ratio Procalcitonin 0.09 Urine Color Yellow Urine Clarity Clear Urine pH 5.0 Ur Specific [place] 1.020 Urine Protein 30 H Urine Glucose (UA) Normal Urine Ketones 50 H Urine Occult Blood 25 H Urine Nitrite Negative Urine Bilirubin Negative Urine Urobilinogen 1 H Ur Leukocyte Esterase Negative Urine RBC 0 SEEN Urine WBC 0 SEEN Ur Squamous Epith Cells 0 SEEN Amorphous Sediment 1+ Urine Bacteria 1+ Urine Mucus 0 SEEN COVID-19 (ROXANA) 04/23/20 04/24/2020 22:30 07:05 07:05 WBC 3.3 L RBC 4.31 Hgb 14.1 Hct 40.0 MCV 92.8 MCH 32.7 H MCHC 35.3 RDW Std Deviation 44.0 H RDW Coeff of Kacy 12.7 Plt Count 230 MPV 9.9 Immature Gran % (Auto) 0.600 Neut % (Auto) 83.0 H Lymph % (Auto) 12.8 L Lucas % (Auto) 3.3 Eos % (Auto) 0.0 Baso % (Auto) 0.3 Absolute Neuts (auto) 2.7 Absolute Lymphs (auto) 0.42 L Nucleated RBC % 0 Differential Comment COMMENT Diff Path Review May foll PT 12.4 INR 1.0 D-Dimer Quant (PE/DVT) 2.26 H* Sodium Potassium Chloride Carbon Dioxide Anion Gap BUN Creatinine Estim Creat Clear Calc Est GFR (MDRD) Af Amer Est GFR (MDRD) Non-Af BUN/Creatinine Ratio Glucose Calcium Total Bilirubin AST ALT Alkaline Phosphatase Total Creatine Kinase Troponin I B-Natriuretic Peptide Total Protein Albumin Globulin Albumin/Globulin Ratio Procalcitonin Urine Color Urine Clarity Urine pH Ur Specific [place] Urine Protein Urine Glucose (UA) Urine Ketones Urine Occult Blood Urine Nitrite Urine Bilirubin Urine Urobilinogen Ur Leukocyte Esterase Urine RBC Urine WBC Ur Squamous Epith Cells Amorphous Sediment Urine Bacteria Urine Mucus COVID-19 (ROXANA) Detected 04/24/20 07:05 WBC RBC Hgb Hct MCV MCH MCHC RDW Std Deviation RDW Coeff of Kacy Plt Count MPV Immature Gran % (Auto) Neut % (Auto) Lymph % (Auto) Lucas % (Auto) Eos % (Auto) Baso % (Auto) Absolute Neuts (auto) Absolute Lymphs (auto) Nucleated RBC % Differential Comment Diff Path Review PT INR D-Dimer Quant (PE/DVT) Sodium 138 Potassium 3.9 Chloride 105 Carbon Dioxide 25.0 Anion Gap 8 BUN 21 H Creatinine 0.93 Estim Creat Clear Calc 37.62 Est GFR (MDRD) Af Amer 75 Est GFR (MDRD) Non-Af 62 BUN/Creatinine Ratio 22.6 H Glucose 175 H Calcium 8.4 L Total Bilirubin 0.40 AST 41 H ALT 28 Alkaline Phosphatase 81 Total Creatine Kinase Troponin I B-Natriuretic Peptide Total Protein 6.8 Albumin 3.6 Globulin 3.2 Albumin/Globulin Ratio 1.1 Procalcitonin Urine Color Urine Clarity Urine pH Ur Specific [place] Urine Protein Urine Glucose (UA) Urine Ketones Urine Occult Blood Urine Nitrite Urine Bilirubin Urine Urobilinogen Ur Leukocyte Esterase Urine RBC Urine WBC Ur Squamous Epith Cells Amorphous Sediment Urine Bacteria Urine Mucus COVID-19 (ROXANA) - Other Studies Radiology: [] reviewed Other Studies: [] Route of nutrition/ use of supplements: [] Nutritional Intake: [] IV Site: [] [place] Catheter: [] - Physical Exam General: Alert, Cooperative, No apparent distress HEENT: Atraumatic, PERRLA, EOMI Neck: Supple, No Nodes Lungs: Diminished Cardiovascular: Regular rate, Regular Rhythm Abdomen: Soft, Non Tender, Non-Distended Extremities: No edema Skin: No rashes IV Site: Peripheral, without redness Musculoskeletal: No Tenderness to Palpation of Joints or Extremities Neurological: Cranial nerves II-XII grossly intact - Assessment/Plan Antibiotics: [] Assessment/Plan: [] covid with hypoxia - sx started around 04/21. D-dimer elevated at 2.2. Cont remdesivir, will order daily labs and will change dex to po. No PE on CTA of chest. will follow, thank you
--- NOTE | 2020-04-24 12:51 | CASEMGMT ---
SW called pt in room, she answered and stated that she is about to eat dinner, she states is okay for SW to call daughter Ynes. SW called Ynes to review how pt was managing prior to this hospitalization and discuss discharge plans. PCP: Dr. Sanchez Specialists: None Insurance: Medicare/[facility] in [place] LNOK: Two daughters LW/POA: Daughter states has been a discussion w/pt, pt has been reluctant to sign the papers, Pt has said daughters Ynes and Karine would be the decision makers but pt hesitant to fill out the papers. SW explained once she is better if she would want to come in to the hospital as an outpt, this SW would be able to assist her in completing the forms. COVID testing: Done here, positive on 04/23/20 Prior level of function: Pt lives alone in a one story home, still drives during the day. Pt does a little bit of cleaning but not much. As per daughter, pt is independent, but is not eating healthy and daughter thinks she does not always remember to take her medications. DME/HHC/SNF: Pt uses no DME, not on O2 at home. Daughter bought her a cane but pt will not use it. Pt has never had home health, has never been to a chcf. We reviewed discharge options, including home w/home health and possibly private hire aide agencies, vs. going to a chcf short term for rehab. Daughter does not think pt would be agreeable to go to SNF. SW explained pt would need to be very independent to go home, or would need to consider hiring aides privately. Daughter open to JANNET emailing information on private hire aide agencies and nursing homes taking pts with COVID. JANNET explained we will see how pt does with therapy, then go from there as far as what will be the most appropriate discharge plan. SW did ask daughter about pt's confusion here, she states family noticed pt's increased confusion with being ill, and this is not how she usually is. JANNET emailed the list of nursing homes that are taking COVID patients along with a private hire aide list to daughter Ynes. SW will continue to follow for discharge planning needs. Plan: TBD, home w/home health care and possibly additional private hire aides vs. SNF [facility]
--- NOTE | 2020-04-24 19:14 | PCM.PN.HOSP ---
Patient Problems: Active and Suspected Problems COVID-19 (Acute) Subjective: Feeling better today. When I saw her she was on room air however she does seem to be going back and forth between room air and 4 L nasal cannula Vitals/I&O's: Vital Signs Temp Pulse Resp BP Pulse Ox 97.9 F 85 24 H 151/78 H 94 04/24/20 15:00 04/24/20 15:00 04/24/20 16:41 04/24/20 15:00 04/24/20 16:41 Oxygen Flow Rate (L/min) 4 Oxygen Delivery Method Nasal Cannula Weight: 154 lb 15.759 oz Body Mass Index (BMI) 29.2 Intake and Output for Last 24 Hours 04/22/20 04/23/20 04/24/20 23:59 23:59 23:59 Intake Total 1250 / 1250 Balance 1250 / 1250 General: Alert, Oriented x3, Cooperative, No apparent distress HEENT: Atraumatic, PERRLA, EOMI, Normocephalic Oral: Moist Mucosa Neck: Supple, No JVD Lungs: Normal air movement, No rhonchi, No wheeze, No rales, Diminished Cardiovascular: Regular rate, Regular Rhythm, Normal S1, Normal S2, No murmurs Abdomen: Soft, Non Tender, Non-Distended, No Hepato-splenomegaly Extremities: No edema, Capillary Refill Less than 3 Seconds Skin: No rashes, No breakdown Neurological: Neuro grossly intact, Sensory exam intact to light touch and pain Psych/Mental Status: Normal Affect, Appropriate Microbiology Past 72 Hours 04/23/20 20:20 Mucosa - Nose SARS-CoV-2 Antigen (Rapid) - Final Laboratory Results 04/23/20 19:15: WBC 7.0, RBC 4.51, Hgb 14.3, Hct 41.8, MCV 92.7, MCH 31.7, MCHC 34.2, RDW Std Deviation 43.3, RDW Coeff of Kacy 12.5, Plt Count 243, MPV 10.1, Immature Gran % (Auto) 0.400, Neut % (Auto) 78.2 H, Lymph % (Auto) 11.5 L, [place] % (Auto) 9.8, Eos % (Auto) 0.0, Baso % (Auto) 0.1, Absolute Neuts (auto) 5.5, Absolute Lymphs (auto) 0.81 L, Nucleated RBC % 0 04/23/20 19:15: Sodium 133 L, Potassium 3.7, Chloride 101, Carbon Dioxide 23.0, Anion Gap 9, BUN 22 H, Creatinine 1.19 H, Estim Creat Clear Calc 27.99, Est GFR (MDRD) Af Amer 56 L, Est GFR (MDRD) Non-Af 47 L, BUN/Creatinine Ratio 18.5, Glucose 129 H, Calcium 8.8, Total Bilirubin 0.70, AST 50 H, ALT 30, Alkaline Phosphatase 91, Troponin I < 0.015, Total Protein 7.8, Albumin 4.1, Globulin 3.7, Albumin/Globulin Ratio 1.1 04/23/20 19:15: B-Natriuretic Peptide 101.3 H 04/23/20 19:15: Total Creatine Kinase 995 H 04/23/20 19:15: Procalcitonin 0.09 04/23/20 20:35: Urine Color Yellow, Urine Clarity Clear, Urine pH 5.0, Ur Specific [place] 1.020, Urine Protein 30 H, Urine Glucose (UA) Normal, Urine Ketones 50 H, Urine Occult Blood 25 H, Urine Nitrite Negative, Urine Bilirubin Negative, Urine Urobilinogen 1 H, Ur Leukocyte Esterase Negative, Urine RBC 0 SEEN, Urine WBC 0 SEEN, Ur Squamous Epith Cells 0 SEEN, Amorphous Sediment 1+, Urine Bacteria 1+, Urine Mucus 0 SEEN 04/23/20 22:30: COVID-19 (ROXANA) Detected 04/24/20 06:31: POC Glucose 182 H 04/24/20 07:05: PT 12.4, INR 1.0, D-Dimer Quant (PE/DVT) 2.26 H* 04/24/20 07:05: WBC 3.3 L, RBC 4.31, Hgb 14.1, Hct 40.0, MCV 92.8, MCH 32.7 H, MCHC 35.3, RDW Std Deviation 44.0 H, RDW Coeff of Kacy 12.7, Plt Count 230, MPV 9.9, Immature Gran % (Auto) 0.600, Neut % (Auto) 83.0 H, Lymph % (Auto) 12.8 L, [place] % (Auto) 3.3, Eos % (Auto) 0.0, Baso % (Auto) 0.3, Absolute Neuts (auto) 2.7, Absolute Lymphs (auto) 0.42 L, Nucleated RBC % 0, Differential Comment COMMENT, Diff Path Review September04/24/20 07:05: Sodium 138, Potassium 3.9, Chloride 105, Carbon Dioxide 25.0, Anion Gap 8, BUN 21 H, Creatinine 0.93, Estim Creat Clear Calc 37.62, Est GFR (MDRD) Af Amer 75, Est GFR (MDRD) Non-Af 62, BUN/Creatinine Ratio 22.6 H, Glucose 175 H, Calcium 8.4 L, Total Bilirubin 0.40, AST 41 H, ALT 28, Alkaline Phosphatase 81, Total Protein 6.8, Albumin 3.6, Globulin 3.2, Albumin/Globulin Ratio 1.1 Current Medications Acetaminophen (Acetaminophen 325 Mg Tablet) 650 mg PO Q6H PRN PRN PRN Reason: Pain Score 1-10/Temp > 100.7 F Albuterol Sulfate (Albuterol Ih 8.5 Gm (Proair) Inhaler (200 Puffs)) 2 puff INHALATION Q4H PRN PRN PRN Reason: Shortness of breath, wheezing Albuterol Sulfate (Albuterol Ih 8.5 Gm (Proair) Inhaler (200 Puffs)) 1 puff INHALATION Q6HWA.RT [facility] Dexamethasone (Dexamethasone 4 Mg Tablet) 6 mg PO DAILY [facility] Stop: 05/02/20 10:01 Enoxaparin Sodium (Enoxaparin 80 Mg/0.8 Ml Syringe) 70 mg SC BID [facility] Last Admin: 04/24/20 09:08 Dose: 70 mg Documented by: Guaifenesin (Guaifenesin 600 Mg Tablet) 600 mg PO BID [facility] Last Admin: 04/24/20 09:09 Dose: 600 mg Documented by: Remdesivir 100 mg/ Sodium (Chloride) 250 mls @ 125 mls/hr IV Q24H [facility] Stop: 04/27/20 23:59 Ondansetron HCl (Ondansetron 4 Mg/2 Ml Vial) 4 mg IV Q8H PRN PRN PRN Reason: NAUSEA/VOMITING Senna/Docusate Sodium (Senna/Docusate Sodium 1 Tablet) 2 tablet PO BID PRN PRN PRN Reason: Constipation Sodium Chloride (0.9% Saline Lock 10 Ml Syringe) 10 - 40 ml IV UD PRN PRN Reason: SALINE FLUSH Last Admin: 04/24/20 09:09 Dose: 10 ml Documented by: Zolpidem Tartrate (Zolpidem Tartrate 5 Mg Tablet) 5 mg PO QHS PRN PRN PRN Reason: INSOMNIA STROKE Vital Signs/Narrative: Vital Signs Resp Pulse Ox 04/24/20 16:41 24 H 94 Medical Necessity - Tobacco Use Smoking Status: Current some day smoker Tobacco Use: Cigarettes Assessment/Plan All Active Problems COVID-19 (Acute) 1. COVID-19 pneumonia/COPD exacerbation -Currently stable on room air, continue with inhalers -Continue with Decadron and remdesivir -PT/OT for discharge planning -Appreciate ID input -D-dimer is elevated but CTA of the chest was negative for PE. She should still likely go home on a low-dose anticoagulant for 2 weeks 2. Recent fall with right leg and hip pain -X-rays were negative -CT pelvis was also unremarkable -As needed pain medication 3. HTN -Unsure as to which medication she takes, she is a very poor historian -We will hopefully be able to get in touch with pharmacies tomorrow and evaluate her med list better -We will monitor for now and adjust blood pressure medications as necessary -Her BNP was elevated to 101. So her IV fluids were discontinued and will potentially need to give her Lasix if we can get her off of oxygen 4. GERD, anxiety, depression are all chronic medical disc conditions. We will need to verify home medication list prior to restarting any of her medications DVT: Therapeutic Lovenox Inpatient E&M: [id number] Subs Hosp L2
[2020-04-25] VITALS (8 sets, daily range): BP systolic 137–160; BP diastolic 83–95; PULSE 73–85; RESP 18; TEMP 36.5–36.9; O2SAT 75–95
[2020-04-25 06:01] LABS: Hematocrit 40.8 % (37-47); Hemoglobin 13.7 g/dL (12.0-15.0); Mean Corp Hgb Conc 33.6 g/dL (32-36); Mean Corpuscular Hgb 31.8 pg (27.0-32.0); Mean Corpuscular Volume 94.7 fL (81-99); Mean Platelet Vol. 9.9 fl (6.2-12.0); Platelet Count 249 K/mm3 (150-450); RBC Distribution Width CV 12.9 % (11.6-14.6); RBC Distribution Width SD 44.9 fl (35.1-43.9); Red Blood Count 4.31 M/mm3 (4.2-5.4); White Blood Count 9.6 K/mm3 (4.4-11.0)
[2020-04-25 06:47] LABS: ALB/GLOB Ratio 1.1 RATIO (0.9-2.4); AST(SGOT) 38 U/L (15-37); Alanine Aminotransfer ALT/SGPT 30 U/L (13-56); Albumin, Serum 3.4 g/dL (3.2-5.0); Alkaline Phosphatase 76 U/L (45-117); Anion Gap 6 (5-15); BUN 22 mg/dL (7-18); BUN/Creat Ratio 29.1 RATIO (10-20); Calcium,Total 8.8 mg/dL (8.5-10.1); Chloride 107 mmol/L (98-107); Creatinine, Serum 0.76 mg/dL (0.55-1.02); EST Glomerular Filtration Rate 79 mL/min (>60); Est Glom Filt Rate - Afr Amer 95 mL/min (>60); Estimated Creatinine Clearance 34.99 ml/min; Glucose 114 mg/dL (74-106); Potassium 4.3 mmol/L (3.5-5.1); Protein, Total 6.4 g/dL (6.4-8.2); Sodium Level 140 mmol/L (136-145)
--- NOTE | 2020-04-25 09:26 | CASEMGMT ---
Addendum entered by Hedy Lemus 04/26/20 12:24: Pt is ready for discharge today. SW completed hospital exemption in the [facility]. SW faxed discharge paperwork and hospital exemption to [facility]. JANNET called Yohana in admissions to make sure they are okay w/pt's temp being 99.4, she states this is fine. JANNET called Physicians to set up ambulance, set up for 6:30pm, this is the soonest available. SW let Yohana at [facility] know, and RN att the bedside know. JANNET also called daughter Ynes, let her know pt is ready for discharge today and will leave at 6:30pm. Daughter states understanding. No further needs, pt to [facility] today. RJ Vargas Addendum entered by Hedy Lemus 04/25/20 14:47: Yohana from [facility] called and asked if we can send pt at 3pm or after tomorrow, SW explained that this should not be an issue. She asked SW to call her on her cell phone tomorrow when pt is ready for discharge: [phone]. RJ Vargas Addendum entered by Hedy Lemus 04/25/20 12:05: JANNET called daughter Ynes, let her know that [facility] pt. As per physician, pt will be ready tomorrow, SW let daughter know. She is in agreement w/plan. RJ Vargas Addendum entered by Hedy Lemus 04/25/20 11:26: [facility] pt. JANNET will notify daughter shortly. RJ Vargas Original Note: JANNET called room to speak w/pt, she did not answer. JANNET called daughter Ynes, reviewed pt's PT notes with her, asked about discharge plan. Ynes spoke w/pt and pt is agreeable to short term [facility] placement. Daughter wanted TCU for pt, SW explained TCU is not taking pts with COVID. Their next choice is [facility]. SW explained will send referral and let her know. JANNET called [facility], message left and referral sent. SW will continue to follow. RJ Vargas
[2020-04-25] MEDS: dexAMETHasone 4 MG Tablet 6 MG PO (09:40)
[2020-04-25] MEDS: guaiFENesin 600 MG Tablet PO ×2 (09:41→21:31)
[2020-04-25] MEDS: Enoxaparin 80 MG/0.8 ML Syringe 70 MG SC ×2 (09:42→21:31)
--- NOTE | 2020-04-25 09:45 | PN_ITS ---
Patient Problems: Active and Suspected Problems COVID-19 (Acute) Subjective: Feels about the same as yesterday. She is on 1 to 2 L nasal cannula to maintain her oxygen saturations Vitals/I&O's: Vital Signs Temp Pulse Resp BP Pulse Ox 98.1 F 77 18 148/83 H 93 04/25/20 09:35 04/25/20 09:35 04/25/20 09:35 04/25/20 09:35 04/25/20 09:35 Oxygen Flow Rate (L/min) 1 Oxygen Delivery Method Nasal Cannula Weight: 154 lb 15.759 oz Body Mass Index (BMI) 29.2 Intake and Output for Last 24 Hours 04/23/20 04/24/20 04/25/20 23:59 23:59 23:59 Intake Total 1500 / 1500 Output Total 650 / 650 Balance 1500 / 1500 -650 / -650 General: Alert, Oriented x3, Cooperative, No apparent distress HEENT: Atraumatic, PERRLA, EOMI, Normocephalic Oral: Moist Mucosa Neck: Supple, No JVD Lungs: Normal air movement, No rhonchi, No wheeze, No rales, Diminished Cardiovascular: Regular rate, Regular Rhythm, Normal S1, Normal S2, No murmurs Abdomen: Soft, Non Tender, Non-Distended, No Hepato-splenomegaly Extremities: No edema, Capillary Refill Less than 3 Seconds Skin: No rashes, No breakdown Neurological: Neuro grossly intact, Sensory exam intact to light touch and pain Psych/Mental Status: Normal Affect, Appropriate Microbiology Past 72 Hours 04/23/20 20:20 Mucosa - Nose SARS-CoV-2 Antigen (Rapid) - Final Laboratory Results 04/25/20 05:21: WBC 9.6, RBC 4.31, Hgb 13.7, Hct 40.8, MCV 94.7, MCH 31.8, MCHC 33.6, RDW Std Deviation 44.9 H, RDW Coeff of Kacy 12.9, Plt Count 249, MPV 9.9 04/25/20 05:21: Sodium 140, Potassium 4.3, Chloride 107, Carbon Dioxide 27.0, Anion Gap 6, BUN 22 H, Creatinine 0.76, Estim Creat Clear Calc 34.99, Est GFR (MDRD) Af Amer 95, Est GFR (MDRD) Non-Af 79, BUN/Creatinine Ratio 29.1 H, Glucose 114 H, Calcium 8.8, Total Bilirubin 0.40, AST 38 H, ALT 30, Alkaline Phosphatase 76, Total Protein 6.4, Albumin 3.4, Globulin 3.0, Albumin/Globulin Ratio 1.1 Current Medications Acetaminophen (Acetaminophen 325 Mg Tablet) 650 mg PO Q6H PRN PRN PRN Reason: Pain Score 1-10/Temp > 100.7 F Albuterol Sulfate (Albuterol Ih 8.5 Gm (Proair) Inhaler (200 Puffs)) 2 puff INHALATION Q4H PRN PRN PRN Reason: Shortness of breath, wheezing Albuterol Sulfate (Albuterol Ih 8.5 Gm (Proair) Inhaler (200 Puffs)) 1 puff INHALATION Q6HWA.RT [facility] Dexamethasone (Dexamethasone 4 Mg Tablet) 6 mg PO DAILY [facility] Stop: 05/02/20 10:01 Last Admin: 04/25/20 09:40 Dose: 6 mg Documented by: Enoxaparin Sodium (Enoxaparin 80 Mg/0.8 Ml Syringe) 70 mg SC BID [facility] Last Admin: 04/25/20 09:42 Dose: 70 mg Documented by: Guaifenesin (Guaifenesin 600 Mg Tablet) 600 mg PO BID [facility] Last Admin: 04/25/20 09:41 Dose: 600 mg Documented by: Remdesivir 100 mg/ Sodium (Chloride) 250 mls @ 125 mls/hr IV Q24H [facility] Stop: 04/27/20 23:59 Last Infusion: 04/24/20 23:11 Dose: Infused Documented by: Ondansetron HCl (Ondansetron 4 Mg/2 Ml Vial) 4 mg IV Q8H PRN PRN PRN Reason: NAUSEA/VOMITING Senna/Docusate Sodium (Senna/Docusate Sodium 1 Tablet) 2 tablet PO BID PRN PRN PRN Reason: Constipation Sodium Chloride (0.9% Saline Lock 10 Ml Syringe) 10 - 40 ml IV UD PRN PRN Reason: SALINE FLUSH Last Admin: 04/24/20 09:09 Dose: 10 ml Documented by: Zolpidem Tartrate (Zolpidem Tartrate 5 Mg Tablet) 5 mg PO QHS PRN PRN PRN Reason: INSOMNIA STROKE Vital Signs/Narrative: Vital Signs Temp Pulse Resp BP Pulse Ox 04/25/20 09:35 98.1 F 77 18 148/83 H 93 Medical Necessity - Tobacco Use Smoking Status: Current some day smoker Tobacco Use: Cigarettes Assessment/Plan All Active Problems COVID-19 (Acute) 1. COVID-19 pneumonia/COPD exacerbation -Currently stable on room air, continue with inhalers -Continue with Decadron and remdesivir -PT/OT for discharge planning -Appreciate ID input -D-dimer is elevated but CTA of the chest was negative for PE. In discussion with the family, they prefer if she went to a [facility] for a few weeks as she has been getting weaker at home. On discharge she will likely need to continue low-dose anticoagulant for 2 weeks as well. Will obtain an ambulatory pulse ox today 2. Recent fall with right leg and hip pain -X-rays were negative -CT pelvis was also unremarkable -As needed pain medication 3. HTN -Unsure as to which medication she takes, she is a very poor historian -We will hopefully be able to get in touch with pharmacies tomorrow and evaluate her med list better -We will monitor for now and adjust blood pressure medications as necessary -Her BNP was elevated to 101. So her IV fluids were discontinued and will potentially need to give her Lasix if we cant get her off of oxygen 4. GERD, anxiety, depression are all chronic medical disc conditions. We will need to verify home medication list prior to restarting any of her medications DVT: Therapeutic Lovenox Inpatient E&M: 82173 Subs Hosp L2
[2020-04-25 14:30] LABS: Pathologist Review Reviewed
[2020-04-25] MEDS: Acetaminophen 325 MG Tablet 650 MG PO (15:03)
--- NOTE | 2020-04-25 15:53 | PN.ID_ITS ---
Patient Problems: Active and Suspected Problems COVID-19 (Acute) Subjective: Feeling a little better, no fever - Physical Exam Vitals/I&O's: Vital Signs Temp Pulse Resp BP Pulse Ox 98.2 F 79 18 148/89 H 93 04/25/20 15:00 04/25/20 15:00 04/25/20 15:00 04/25/20 15:00 04/25/20 15:00 Oxygen Flow Rate (L/min) [ 2 AMBULATION with Oxygen] Oxygen Flow Rate (L/min) 1 Oxygen Delivery Method Room Air Weight: 70.3 kg Body Mass Index (BMI) 29.2 Intake and Output for Last 24 Hours 04/23/20 04/24/20 04/25/20 23:59 23:59 23:59 Intake Total 1500 / 1500 360 / 360 Output Total 1150 / 1150 Balance 1500 / 1500 -790 / -790 General: Alert, Cooperative, No apparent distress Lungs: Clear to auscultation, Diminished Cardiovascular: Regular rate, Regular Rhythm Abdomen: Soft, Non Tender, Non-Distended Skin: No rashes Microbiology Past 72 Hours 04/23/20 20:20 Mucosa - Nose SARS-CoV-2 Antigen (Rapid) - Final Laboratory Results 04/24/20 07:05: Diff Path Review Reviewed 04/25/20 05:21: WBC 9.6, RBC 4.31, Hgb 13.7, Hct 40.8, MCV 94.7, MCH 31.8, MCHC 33.6, RDW Std Deviation 44.9 H, RDW Coeff of Kacy 12.9, Plt Count 249, MPV 9.9 04/25/20 05:21: Sodium 140, Potassium 4.3, Chloride 107, Carbon Dioxide 27.0, Anion Gap 6, BUN 22 H, Creatinine 0.76, Estim Creat Clear Calc 34.99, Est GFR (MDRD) Af Amer 95, Est GFR (MDRD) Non-Af 79, BUN/Creatinine Ratio 29.1 H, Glucose 114 H, Calcium 8.8, Total Bilirubin 0.40, AST 38 H, ALT 30, Alkaline Phosphatase 76, Total Protein 6.4, Albumin 3.4, Globulin 3.0, Albumin/Globulin Ratio 1.1 Current Medications Acetaminophen (Acetaminophen 325 Mg Tablet) 650 mg PO Q6H PRN PRN PRN Reason: Pain Score 1-10/Temp > 100.7 F Last Admin: 04/25/20 15:03 Dose: 650 mg Documented by: Albuterol Sulfate (Albuterol Ih 8.5 Gm (Proair) Inhaler (200 Puffs)) 2 puff INHALATION Q4H PRN PRN PRN Reason: Shortness of breath, wheezing Albuterol Sulfate (Albuterol Ih 8.5 Gm (Proair) Inhaler (200 Puffs)) 1 puff INHALATION Q6HWA.RT [facility] Albuterol/Ipratropium (Ipratropium/Albuterol Sulfate 3 Ml Ampul.Neb) 3 ml INHALATION Q4HWA.RT [facility] Dexamethasone (Dexamethasone 4 Mg Tablet) 6 mg PO DAILY [facility] Stop: 05/02/20 10:01 Last Admin: 04/25/20 09:40 Dose: 6 mg Documented by: Enoxaparin Sodium (Enoxaparin 80 Mg/0.8 Ml Syringe) 70 mg SC BID [facility] Last Admin: 04/25/20 09:42 Dose: 70 mg Documented by: Guaifenesin (Guaifenesin 600 Mg Tablet) 600 mg PO BID [facility] Last Admin: 04/25/20 09:41 Dose: 600 mg Documented by: Remdesivir 100 mg/ Sodium (Chloride) 250 mls @ 125 mls/hr IV Q24H [facility] Stop: 04/27/20 23:59 Last Infusion: 04/24/20 23:11 Dose: Infused Documented by: Ondansetron HCl (Ondansetron 4 Mg/2 Ml Vial) 4 mg IV Q8H PRN PRN PRN Reason: NAUSEA/VOMITING Senna/Docusate Sodium (Senna/Docusate Sodium 1 Tablet) 2 tablet PO BID PRN PRN PRN Reason: Constipation Sodium Chloride (0.9% Saline Lock 10 Ml Syringe) 10 - 40 ml IV UD PRN PRN Reason: SALINE FLUSH Last Admin: 04/24/20 09:09 Dose: 10 ml Documented by: Zolpidem Tartrate (Zolpidem Tartrate 5 Mg Tablet) 5 mg PO QHS PRN PRN PRN Reason: INSOMNIA Medical Necessity - Tobacco Use Smoking Status: Current some day smoker Tobacco Use: Cigarettes Route of nutrition/ use of supplements: [] Nutritional Intake: [] IV Site: [] [place] Catheter: [] - Assessment/Plan Antibiotics: [] Assessment/Plan: [] covid with hypoxia - sx started around 04/21. D-dimer elevated at 2.2. Cont remdesivir, dex. No PE on CTA of chest. Plan on quarantine until 05/11/20. Complete 10 days of dex. Plan on 2 weeks of xarelto 10mg daily or eliquis 2.5mg bid after discharge. will follow
[2020-04-25] MEDS: Ipratropium/Albuterol Sulfate 3 ML AMPUL.NEB INHALATION (19:26)
[2020-04-25] MEDS: busPIRone 15 MG TABLET PO (21:30)
[2020-04-25] MEDS: Losartan Potassium 100 MG Tablet PO (21:30)
[2020-04-25] MEDS: 0.9% Saline Lock 10 ML Syringe IV (22:49)
[2020-04-26] VITALS (10 sets, daily range): BP systolic 131–164; BP diastolic 68–91; PULSE 64–100; RESP 18–20; TEMP 36.2–37.4; O2SAT 91–93
[2020-04-26 06:25] LABS: Hematocrit 40.6 % (37-47); Hemoglobin 13.8 g/dL (12.0-15.0); Mean Corpuscular Hgb 32.1 pg (27.0-32.0); Mean Corpuscular Volume 94.4 fL (81-99); Mean Platelet Vol. 10.2 fl (6.2-12.0); Platelet Count 260 K/mm3 (150-450); RBC Distribution Width CV 12.6 % (11.6-14.6); RBC Distribution Width SD 43.7 fl (35.1-43.9); White Blood Count 6.3 K/mm3 (4.4-11.0)
[2020-04-26] MEDS: busPIRone 15 MG TABLET PO ×2 (06:26→14:16)
[2020-04-26] MEDS: Ipratropium/Albuterol Sulfate 3 ML AMPUL.NEB INHALATION ×3 (06:55→15:50)
[2020-04-26 06:56] LABS: ALB/GLOB Ratio 1.2 RATIO (0.9-2.4); AST(SGOT) 35 U/L (15-37); Alanine Aminotransfer ALT/SGPT 33 U/L (13-56); Albumin, Serum 3.4 g/dL (3.2-5.0); Alkaline Phosphatase 77 U/L (45-117); Anion Gap 7 (5-15); BUN 17 mg/dL (7-18); BUN/Creat Ratio 29.2 RATIO (10-20); Calcium,Total 8.2 mg/dL (8.5-10.1); Chloride 106 mmol/L (98-107); Creatinine, Serum 0.58 mg/dL (0.55-1.02); EST Glomerular Filtration Rate 106 mL/min (>60); Est Glom Filt Rate - Afr Amer 128 mL/min (>60); Estimated Creatinine Clearance 34.99 ml/min; Globulin 2.9 g/dL (2.2-4.2); Glucose 98 mg/dL (74-106); Potassium 3.5 mmol/L (3.5-5.1); Protein, Total 6.3 g/dL (6.4-8.2); Sodium Level 138 mmol/L (136-145)
[2020-04-26] MEDS: dexAMETHasone 4 MG Tablet 6 MG PO (08:43)
[2020-04-26] MEDS: Enoxaparin 80 MG/0.8 ML Syringe 70 MG SC (08:44)
[2020-04-26] MEDS: guaiFENesin 600 MG Tablet PO (08:45)
[2020-04-26] MEDS: Pantoprazole Sodium 40 MG Tablet PO (08:45)
[2020-04-26] MEDS: amLODIPine 5 MG Tablet PO (08:45)
[2020-04-26] MEDS: PARoxetine CR 12.5 MG Tablet 25 MG PO (08:46)
[2020-04-26] MEDS: Atenolol 50 MG Tablet PO (08:49)
[2020-04-26] MEDS: PARoxetine CR 12.5 MG Tablet 37.5 MG PO (10:14)
--- NOTE | 2020-04-26 11:45 | PCM.TXEXTCAR ---
- Diet 04/26/20 10:09 Diet: Regular - No Added Salt Food consistency:: Regular Liquid Consistency:: Regular/Thin Is pt able to select menu?: No - Therapies Physical Therapy: Eval and Treat Occupational Therapy: Eval and Treat - Allergies/Procedures Done in Hospital Allergies/Adverse Reactions: Allergies Sulfa (Sulfonamide Antibiotics) Allergy (Verified 04/23/20 18:10) Unknown Procedures: None - Type of Care/Length of Stay Estimated LOS: Convalescent Care Less Than 30 days Type of Care Needed: Skilled Rehab Potential: Good Prognosis: Good - Additional Orders/Day of Discharge Day of Discharge: 04/26/20 - Dietary and Speech Recommendations Dietitian Recommendations/Changes: Will change diet to Regular No Added Salt to try to maximize pt po intake. - Follow Up Care Primary Care Physician: Gonsalo Sanchez MD [Primary Care Provider] - Please follow up with your Primary Care Physician in: 3-5 days
--- NOTE | 2020-04-26 13:04 | DS.PCM_ITS ---
Discharge Date and Diagnosis - Problem List Patient Problems: Active and Suspected Problems COVID-19 (Acute) Date of Admission: 04/23/20 Date of Discharge: 04/26/20 - Primary Discharge Diagnosis Acute Problems: Active Problems COVID-19 (Acute) - Secondary Discharge Diagnosis Chronic Problems: Chronic Problems History of alcohol abuse (Chronic) Depression (Chronic) Hypertension (Chronic) Hospital Course and Treatment Imaging Results: Clinical Impression(s) from Imaging Studies Brain CT 04/23/20 19:20 IMPRESSION: Possible sphenoid sinusitis otherwise no acute intracranial disease Electronically Signed: German Huerta MD at 20:42 EST , Service support , Chest X-Ray 04/23/20 19:20 IMPRESSION: No acute disease Electronically Signed: German Huerta MD at 21:11 EST , Service support , Hip/Pelvis X-Ray 04/23/20 21:08 IMPRESSION: Probable periarticular dystrophic calcification versus avulsion fracture, age indeterminate, superior lateral to the acetabulum on the right. Electronically Signed: German Huerta MD at 22:10 EST , Service support , Pelvis CT 04/24/20 02:08 IMPRESSION: 1. Nonspecific calcification and/or ossification near the right superior lateral acetabulum. This is probably not sequela of acute trauma. 2. There is no CT evidence to suggest acute fracture or dislocation.. Electronically Signed: Morena Estrada MD at 4:18 EST , Service support , Chest CTA 04/24/20 07:41 IMPRESSION: No evidence of pulmonary embolism. Focal infiltrate in the posterior medial segment of the right lower lobe. Mild increased markings at the left lung base as well as in the peripheral aspect of the left upper lobe. Electronically Signed: Lux Osorio, at 10:23 EST , Service support , Operations: None Procedures: None Summary of Care Provided: PER HPI: The patient is a 79 year old F with past medical history as mentioned above presented to the emergency room because of reported shortness of breath. At this time, patient is alert and oriented x3 but she is a very poor informant. She mentioned that she lives with her and daughter but reportedly, she lives by herself. She came to the emergency department today because of multiple complaints. She has been falling, had a mechanical fall around 1 month ago and since then, she has been having difficulties walking because of pain in her right leg. Over the last 2 days, reportedly she became increasingly weak and short of breath. She reported associated wheezing as well and mild cough. Denied fever or chills. ER physician spoke with the patient's daughter mentioned that her mother has been declining over the last month and she does live by herself. She rested hypertension which has been under control with Norvasc and losartan. She will history of depression and she has been on BuSpar and paroxetine. She history of alcohol abuse but currently, she is sober and denied active alcohol drinking. In the emergency department, she was afebrile, blood pressure and heart rate were stable, pulse ox was 94% on room air and she required 2 L of oxygen. Routine blood work was remarkable for mild hyponatremia which is chronic, BUN of 22, creatinine is 1.19. LFT was unremarkable. Troponin was normal. EKG showed no acute changes. Urinalysis showed no evidence of active infection. CT scan brain showed no acute findings. Chest x- ray showed no acute infiltrate or consolidation. X-ray of the pelvis and right hip revealed probable periarticular dystrophic calcification versus avulsion fracture superior lateral to the right acetabulum. COVID-19 antigen came back negative. COVID-19 PCR came back positive. Patient is being admitted for COVID-19 with hypoxia as well as left hip pain with suspected avulsion fracture. Hospital Course: 1. COVID-19 pneumonia/COPD exacerbation -Currently stable on room air, continue with inhalers she does have significant wheezing on exam and was a longtime smoker therefore I do think that she probably has a component of a COPD exacerbation as well as to COVID-19 pneumonia -Continue with Decadron and remdesivir -PT/OT for discharge planning -Appreciate ID input -I discussed with her today the plan for discharge to long-term facility. She expressed understanding of the risk and benefits of going to a long-term facility and would like to go today. She will need to continue Decadron for total of 10 days and she will be discharged on 2.5 mg of Eliquis p.o. twice daily for 2 weeks secondary to an elevated D-dimer despite negative CTA for PE 2. Recent fall with right leg and hip pain -X-rays were negative -CT pelvis was also unremarkable -As needed pain medication 3. HTN -Unsure as to which medication she takes, she is a very poor historian -We will hopefully be able to get in touch with pharmacies tomorrow and evaluate her med list better -We will monitor for now and adjust blood pressure medications as necessary -Her BNP was elevated to 101. So her IV fluids were discontinued and will potentially need to give her Lasix if we cant get her off of oxygen 4. GERD, anxiety, depression are all chronic medical disc conditions. We will need to verify home medication list prior to restarting any of her medications Patient Problems: Active and Suspected Problems COVID-19 (Acute) - Physical Exam Vitals/I&O's: Vital Signs Temp Pulse Resp BP Pulse Ox 99.4 F H 79 18 136/70 H 93 04/26/20 10:42 04/26/20 11:22 04/26/20 11:22 04/26/20 10:42 04/26/20 10:42 Oxygen Flow Rate (L/min) [ 2 AMBULATION with Oxygen] Oxygen Flow Rate (L/min) 1 Oxygen Delivery Method Room Air Weight: 154 lb 15.759 oz Body Mass Index (BMI) 29.2 Intake and Output for Last 24 Hours 04/24/20 04/25/20 04/26/20 23:59 23:59 23:59 Intake Total 1500 / 1500 940 / 940 570 / 570 Output Total 1150 / 1150 1125 / 1125 Balance 1500 / 1500 -210 / -210 -555 / -555 General: Alert, Oriented x3, Cooperative, No apparent distress HEENT: Atraumatic, PERRLA, EOMI, Normocephalic Oral: Moist Mucosa Neck: Supple, No JVD Lungs: Normal air movement, No rhonchi, bilateral wheeze, No rales, Diminished Cardiovascular: Regular rate, Regular Rhythm, Normal S1, Normal S2, No murmurs Abdomen: Soft, Non Tender, Non-Distended, No Hepato-splenomegaly Extremities: No edema, Capillary Refill Less than 3 Seconds Skin: No rashes, No breakdown Neurological: Neuro grossly intact, Sensory exam intact to light touch and pain Psych/Mental Status: Normal Affect, Appropriate Microbiology Past 72 Hours 04/23/20 20:20 Mucosa - Nose SARS-CoV-2 Antigen (Rapid) - Final Laboratory Results 04/24/20 07:05: Diff Path Review Reviewed 04/26/20 05:21: WBC 6.3, RBC 4.30, Hgb 13.8, Hct 40.6, MCV 94.4, MCH 32.1 H, MCHC 34.0, RDW Std Deviation 43.7, RDW Coeff of Kacy 12.6, Plt Count 260, MPV 10.2 04/26/20 05:21: Sodium 138, Potassium 3.5, Chloride 106, Carbon Dioxide 25.0, Anion Gap 7, BUN 17, Creatinine 0.58, Estim Creat Clear Calc 34.99, Est GFR (MDRD) Af Amer 128, Est GFR (MDRD) Non-Af 106, BUN/Creatinine Ratio 29.2 H, Glucose 98, Calcium 8.2 L, Total Bilirubin 0.50, AST 35, ALT 33, Alkaline Phosphatase 77, Total Protein 6.3 L, Albumin 3.4, Globulin 2.9, Albumin/Globulin Ratio 1.2 Current Medications Acetaminophen (Acetaminophen 325 Mg Tablet) 650 mg PO Q6H PRN PRN PRN Reason: Pain Score 1-10/Temp > 100.7 F Last Admin: 04/25/20 15:03 Dose: 650 mg Documented by: Albuterol Sulfate (Albuterol Ih 8.5 Gm (Proair) Inhaler (200 Puffs)) 2 puff INHALATION Q4H PRN PRN PRN Reason: Shortness of breath, wheezing Last Admin: 04/25/20 21:34 Dose: 2 puff Documented by: Albuterol Sulfate (Albuterol Ih 8.5 Gm (Proair) Inhaler (200 Puffs)) 1 puff INHALATION Q6HWA.RT MIKEY Albuterol/Ipratropium (Ipratropium/Albuterol Sulfate 3 Ml Ampul.Neb) 3 ml INHALATION Q4HWA.RT [facility] Last Admin: 04/26/20 11:22 Dose: 3 ml Documented by: Amlodipine Besylate (Amlodipine 5 Mg Tablet) 5 mg PO DAILY [facility] Last Admin: 04/26/20 08:45 Dose: 5 mg Documented by: Atenolol (Atenolol 50 Mg Tablet) 50 mg PO DAILY [facility] Last Admin: 04/26/20 08:49 Dose: 50 mg Documented by: Buspirone HCl (Buspirone 15 Mg Tablet) 15 mg PO TID [facility] Last Admin: 04/26/20 06:26 Dose: 15 mg Documented by: Dexamethasone (Dexamethasone 4 Mg Tablet) 6 mg PO DAILY [facility] Stop: 05/02/20 10:01 Last Admin: 04/26/20 08:43 Dose: 6 mg Documented by: Enoxaparin Sodium (Enoxaparin 80 Mg/0.8 Ml Syringe) 70 mg SC BID [facility] Last Admin: 04/26/20 08:44 Dose: 70 mg Documented by: Guaifenesin (Guaifenesin 600 Mg Tablet) 600 mg PO BID [facility] Last Admin: 04/26/20 08:45 Dose: 600 mg Documented by: Remdesivir 100 mg/ Sodium (Chloride) 250 mls @ 125 mls/hr IV Q24H [facility] Stop: 04/27/20 23:59 Last Infusion: 04/26/20 00:49 Dose: Infused Documented by: Losartan Potassium (Losartan Potassium 100 Mg Tablet) 100 mg PO QHS [facility] Last Admin: 04/25/20 21:30 Dose: 100 mg Documented by: Ondansetron HCl (Ondansetron 4 Mg/2 Ml Vial) 4 mg IV Q8H PRN PRN PRN Reason: NAUSEA/VOMITING Pantoprazole Sodium (Pantoprazole Sodium 40 Mg Tablet) 40 mg PO DAILY [facility] Last Admin: 04/26/20 08:45 Dose: 40 mg Documented by: Paroxetine HCl (Paroxetine Cr 12.5 Mg Tablet) 25 mg PO DAILY [facility] Last Admin: 04/26/20 08:46 Dose: 25 mg Documented by: Paroxetine HCl (Paroxetine Cr 12.5 Mg Tablet) 37.5 mg PO DAILY [facility] Last Admin: 04/26/20 10:14 Dose: 37.5 mg Documented by: Senna/Docusate Sodium (Senna/Docusate Sodium 1 Tablet) 2 tablet PO BID PRN PRN PRN Reason: Constipation Sodium Chloride (0.9% Saline Lock 10 Ml Syringe) 10 - 40 ml IV UD PRN PRN Reason: SALINE FLUSH Last Admin: 04/25/20 22:49 Dose: 20 ml Documented by: Zolpidem Tartrate (Zolpidem Tartrate 5 Mg Tablet) 5 mg PO QHS PRN PRN PRN Reason: INSOMNIA Home Medications: Medications to take at Discharge Amlodipine [Norvasc] 5 mg PO DAILY 10/03/18 Losartan Potassium 100 mg PO QHS 10/03/18 Pantoprazole Sodium 40 mg PO DAILY 10/03/18 Paroxetine HCl [Paroxetine ER] 37.5 mg PO DAILY 10/03/18 busPIRone [Buspar] 15 mg PO TID 10/03/18 Ascorbic Acid [Vitamin C] 500 mg PO DAILY 04/25/20 Atenolol 50 mg PO DAILY 04/25/20 Calcium Carbonate/Vitamin D3 [Calcium 250-D Tablet] 1 ea PO BID 04/25/20 Multivitamin 1 ea PO DAILY 04/25/20 Oxybutynin [Ditropan] 10 mg PO DAILY 04/25/20 Paroxetine HCl [Paroxetine ER] 25 mg PO DAILY 04/25/20 Apixaban [Eliquis] 2.5 mg PO BID #28 tab 04/26/20 Dexamethasone [Decadron] 6 mg PO DAILY tab 04/26/20 Ipratropium/Albuterol Sulfate [Duoneb] 3 ml INHALATION Q4HWA.RT ampul.neb 04/26/20 Following Prescriptions Were Given to Patient: Apixaban [Eliquis] 2.5 mg PO BID #28 tab Primary Care Physician: Gonsalo Sanchez MD [Primary Care Provider] - Please follow up with your Primary Care Physician in: 3-5 days Disposition: Halfway facility Minutes spent on discharge:: 35 Patient Condition:: Stable Medical Necessity - Tobacco Use Smoking Status: Current some day smoker Tobacco Use: Cigarettes Meaningful Use Info Meaningful Use Diagnoses (Choose all that apply): None applicable Inpatient E&M: [id number] [facility]
[2020-04-26] MEDS: 0.9% Saline Lock 10 ML Syringe IV (14:16)
== END 2020-04-26 19:00 | disposition skilled nursing facility (03) | DRG 177 ==
LOC: ED 22:14 → MS2 04-24 02:34
PROVIDERS: Internal Medicine Infectious Disease; Admitting Provider Hospitalist; Emergency Provider Emergency Medicine; PCP Internal Medicine; Referring Provider Hospitalist; Visit Provider Family Medicine
DX: U07.1 COVID-19 (principal); J12.89 Other viral pneumonia; J44.1 Chronic obstructive pulmonary disease with (acute) exacerbation; E87.1 Hypo-osmolality and hyponatremia; J44.0 Chronic obstructive pulmonary disease with (acute) lower respiratory infection; I10 Essential (primary) hypertension; F41.9 Anxiety disorder, unspecified; Z23 Encounter for immunization; F17.210 Nicotine dependence, cigarettes, uncomplicated; F10.11 Alcohol abuse, in remission; F32.9 Major depressive disorder, single episode, unspecified; R09.02 Hypoxemia; E86.0 Dehydration; K21.9 Gastro-esophageal reflux disease without esophagitis; M25.551 Pain in right hip; Z91.81 History of falling
CPT/HCPCS: 36415; 70450; 71045; 71275; 72192; 73502; 80053; 81001; 82550; 82962; 83880; 84145; 84484; 85025; 85027; 85379; 85610; 87426; 87635; 93005; 94640; 97110; 97116; 97162; 97166; 97530; 97535; 99251; 99283; G0008; J7030; J7050; Q9967; 90686; A4216; G0463; U0002

== ENCOUNTER → 2021-02-28 05:00 | Outpatient (REF) | payer MEDICARE, BC, SELFPAY ==
[2021-02-28 08:15] LABS: Anion Gap 5 (5-15); BUN 21 mg/dL (7-18); BUN/Creat Ratio 18.6 RATIO (10-20); Calcium,Total 9.5 mg/dL (8.5-10.1); Chloride 103 mmol/L (98-107); Creatinine, Serum 1.13 mg/dL (0.55-1.02); EST Glomerular Filtration Rate 49 mL/min (>60); Est Glom Filt Rate - Afr Amer 60 mL/min (>60); Glucose 101 mg/dL (74-106); Magnesium 2.4 mg/dL (1.6-2.6); Potassium 4.3 mmol/L (3.5-5.1); Sodium Level 138 mmol/L (136-145)
== END ==
LOC: OLS.SWAL 05:00
PROVIDERS: PCP Internal Medicine; Visit Provider Internal Medicine
DX: I10 Essential (primary) hypertension (principal)
CPT/HCPCS: 36415; 80048; 83735

== ENCOUNTER → 2021-05-13 | Outpatient (REF) | payer MEDICARE, BC, SELFPAY ==
[2021-05-13 08:34] LABS: Absolute Lymphocyte Count 1.75 X10^3/uL (0.83-4.51); Absolute Neutrophil Count 3.8 X10^3/uL (2.0-7.7); Basophil# 0.07 X10^3/uL; Basophil% 1.1 % (0-1); Eosinophil# 0.32 X10^3/uL; Eosinophils% 4.8 % (0-5); Hematocrit 37.4 % (37-47); Hemoglobin 12.8 g/dL (12.0-15.0); Lymphocyte # 1.75 X10^3/ul (0.83-4.51); Lymphocyte % 26.4 % (19-41); Mean Corp Hgb Conc 34.2 g/dL (32-36); Mean Corpuscular Hgb 31.8 pg (27.0-32.0); Mean Corpuscular Volume 92.8 fL (81-99); Mean Platelet Vol. 10.1 fl (6.2-12.0); Monocyte# 0.67 X10^3/uL; Monocyte% 10.1 % (0-10); NRBC Flagged by Analyzer 0 % (0-5); Neutrophil # 3.78 X10^3/uL (2.7-7.7); Neutrophil % 57.1 % (47-70); Platelet Count 221 K/mm3 (150-450); RBC Distribution Width CV 12.4 % (11.6-14.6); Red Blood Count 4.03 M/mm3 (4.2-5.4); White Blood Count 6.6 K/mm3 (4.4-11.0)
[2021-05-13 09:34] LABS: Anion Gap 8 (5-15); BUN 13 mg/dL (7-18); BUN/Creat Ratio 14.3 RATIO (10-20); Calcium,Total 9.4 mg/dL (8.5-10.1); Chloride 106 mmol/L (98-107); Creatinine, Serum 0.91 mg/dL (0.55-1.02); EST Glomerular Filtration Rate 63 mL/min (>60); Est Glom Filt Rate - Afr Amer 77 mL/min (>60); Glucose 111 mg/dL (74-106); Sodium Level 139 mmol/L (136-145)
== END | disposition home or self-care (01) ==
LOC: OLS.SWAL 07:30
PROVIDERS: PCP Internal Medicine; Visit Provider Internal Medicine
DX: I10 Essential (primary) hypertension (principal); E03.9 Hypothyroidism, unspecified; E87.1 Hypo-osmolality and hyponatremia
CPT/HCPCS: 36415; 80048; 85025

== ENCOUNTER 2021-05-19 18:58 | Emergency (ER) | payer MEDICARE, BC, SELFPAY ==
[2021-05-19 19:01] VITALS: BP 189/72; PULSE 49; RESP 16; TEMP 36.3; O2SAT 96; BMI 29.4
--- NOTE | 2021-05-19 19:27 | RAD_ITS ---
STUDY: X-RAY - LEFT TIBIA AND FIBULA REASON FOR EXAM: Female, 80 years old. pain TECHNIQUE: 2 view(s) of the tibia and fibula were obtained. COMPARISON: None. FINDINGS: Ankle and knee are located. Tibia is intact. There is irregularity of the distal fibula, probably remote injury. There is ankle soft tissue edema. RAD/Tibia & Fibula 2 Views IMPRESSION: Presumed remote fibular malleolar injury. Ankle edema. Otherwise intact osseous structures. Electronically Signed: Umm Ocasio MD at 20:43 EST Tel , Service support ,
--- NOTE | 2021-05-19 19:28 | ED.VIS.LOWEX ---
HPI History of Present Illness Chief Complaint: Lower Extremity Injury Narrative Narrative: 80-year-old female with history of gait instability presenting after she fell today at her nursing facility and hurt her knee. She states she sat there for a little while and then was able to get up in bed and watched football all day. She states that she did not go to dinner because she had knee pain and was given Tylenol. Patient states it is difficult to walk secondary to pain in the knee and in the lateral aspect of her lower leg. Patient denies head injury or LOC. She feels otherwise well. PFSH PFSH Home Medications amlodipine 5 mg PO DAILY 10/03/18 [History Last Taken Unknown] buspirone 15 mg PO TID 10/03/18 [History Last Taken Unknown] losartan 100 mg PO QHS 10/03/18 [History Last Taken Unknown] pantoprazole 40 mg PO DAILY 10/03/18 [History Last Taken Unknown] paroxetine HCl 37.5 mg PO DAILY 10/03/18 [History Last Taken Unknown] ascorbic acid (vitamin C) 500 mg PO DAILY 04/25/20 [History Last Taken Unknown] atenolol 50 mg PO DAILY 04/25/20 [History Last Taken Unknown] calcium carbonate-vitamin D3 1 ea PO BID 04/25/20 [History Last Taken Unknown] multivitamin 1 ea PO DAILY 04/25/20 [History Last Taken Unknown] oxybutynin chloride 10 mg PO DAILY 04/25/20 [History Last Taken Unknown] paroxetine HCl 25 mg PO DAILY 04/25/20 [History Last Taken Unknown] apixaban 2.5 mg PO BID #28 tab 04/26/20 [Rx Last Taken Unknown] dexamethasone 6 mg PO DAILY tab 04/26/20 [Rx Last Taken Unknown] ipratropium-albuterol 3 ml INHALATION Q4HWA.RT ampul.neb 04/26/20 [Rx Last Taken Unknown] Allergy/AdvReac Type Severity Reaction Status Date / Time Sulfa (Sulfonamide Allergy Unknown Verified 04/23/20 18:10 Antibiotics) Social History Smoking Status: Former smoker ROS ROS ED Constitutional Constitutional ED: Denies chills or fever(s) Eyes Eyes: Denies blurry vision or diplopia ENT ENT ED: Denies rhinorrhea or sore throat Cardiovascular Cardiovascular: Denies chest pain or palpitations Respiratory/Chest Respiratory/Chest: Denies cough or dyspnea Gastrointestinal Gastrointestinal: Denies abdominal pain or nausea Genitourinary Genitourinary ED: Denies dysuria or hematuria Musculoskeletal Musculoskeletal: Reports other Details: Left knee pain and left lower leg pain Integumentary Denies Abrasions or rash Neurologic Neurologic: Denies headache(s) or paresthesias EXAM Physical Exam Const Vital Signs: 05/19/21 19:01 Temperature 97.3 F L Temperature Source Temporal Pulse Rate 49 L Respiratory Rate 16 Blood Pressure 189/72 H Blood Pressure Mean 111 Pulse Ox 96 Oxygen Delivery Method Room Air Positive well nourished HEENT normocephalic and atraumatic Eyes PERRL Resp normal respiratory effort and clear to auscultation bilaterally Cardio regular rhythm Rate: bradycardia Extremity Extremity Narrative: Tenderness to palpation on the left lateral aspect of the left knee. There is pain in the lateral aspect of the lower leg. There is no crepitance or deformity. This pain is minimal. Patient is able to flex her hip and bend her knee under her own strength. Neuro oriented x3 and CN's II-XII intact bilaterally Sensorium / Orientation: alert Psych mental status grossly normal Skin Lesions: no lesions Rashes: no rashes MDM MDM MDM Narrative Medical decision making narrative: Obtained x-rays of the left tib-fib and knee left knee and on my interpretation there is no acute fracture or subluxation. At this point I feel the patient is stable to be discharged home. She is counseled to use ice and heat and alternating fashion and use Tylenol for pain due to being on blood thinner. She is counseled to use her walker as she was instructed to before. Impression: 1. Mechanical fall 2. Left knee contusion 3. Left leg Radiography Diagnostic Testing: Clinical Impression(s) from Imaging Studies Tibia/Fibula X-Ray 05/19/21 19:27 IMPRESSION: Presumed remote fibular malleolar injury. Ankle edema. Otherwise intact osseous structures. Electronically Signed: Umm Ocasio MD at 20:43 EST Tel , Service support , Knee X-Ray 05/19/21 19:30 IMPRESSION: Normal x-ray examination of the knee. Electronically Signed: Umm Ocasio MD at 20:07 EST Tel , Service support , Discharge Plan Triage Chief Complaint: Lower Extremity Injury ED Provider: Mikel Schuster Dx/Rx/DC Orders Instructions: ED Contusion, Lower Extremity Prescriptions: No Action amlodipine 5 MG tablet 5 mg PO DAILY RF: 0 pantoprazole 40 MG Tablet.Dr 40 mg PO DAILY RF: 0 losartan 100 MG tablet 100 mg PO QHS RF: 0 buspirone 15 MG tablet 15 mg PO TID RF: 0 paroxetine HCl 37.5 MG Tab.Er.24h 37.5 mg PO DAILY RF: 0 multivitamin 1 EACH tablet 1 ea PO DAILY RF: 0 ascorbic acid (vitamin C) 500 MG tablet 500 mg PO DAILY RF: 0 oxybutynin chloride 5 MG tablet 10 mg PO DAILY RF: 0 atenolol 50 MG tablet 50 mg PO DAILY RF: 0 paroxetine HCl 25 MG tablet extended release 24 hr 25 mg PO DAILY RF: 0 calcium carbonate-vitamin D3 1 EACH tablet 1 ea PO BID RF: 0 ipratropium-albuterol 3 ML solution for nebulization 3 ml INHALATION Q4HWA.RT RF: 0 dexamethasone 4 MG tablet 6 mg PO DAILY RF: 0 apixaban 2.5 MG tablet 2.5 mg PO BID Qty: 28 RF: 0 Primary Care Provider: Gonsalo Snachez Referrals: Gonsalo Sanchez MD [Primary Care Provider] - Disposition Disposition: Home, Self Care
--- NOTE | 2021-05-19 19:30 | RAD_ITS ---
STUDY: X-RAY - LEFT KNEE REASON FOR EXAM: Female, 80 years old. pain TECHNIQUE: 4 view(s) of the knee. COMPARISON: None. FINDINGS: Normal visualized distal femur. Normal visualized proximal tibia and fibula. Normal proximal tibiofibular articulation. Normal medial femorotibial compartment. Normal lateral femorotibial compartment. Normal patellofemoral articulation. The soft tissue structures are unremarkable with small joint effusion. RAD/Knee 4 or More Views IMPRESSION: Normal x-ray examination of the knee. Electronically Signed: Umm Ocasio MD at 20:07 EST Tel , Service support ,
[2021-05-19 21:39] VITALS: BP 144/94; PULSE 51; RESP 16; O2SAT 97
== END 2021-05-19 21:40 | disposition home or self-care (01) ==
PROVIDERS: Emergency Provider Student in an Organized Health Care Education/Training Program; PCP Internal Medicine; Visit Provider Student in an Organized Health Care Education/Training Program
DX: S80.02XA Contusion of left knee, initial encounter (principal); Z87.891 Personal history of nicotine dependence; W19.XXXA Unspecified fall, initial encounter; Y93.9 Activity, unspecified; Y92.129 Unspecified place in nursing home as the place of occurrence of the external cause
CPT/HCPCS: 73564; 73590; 99283

== ENCOUNTER 2021-07-07 22:00 | Outpatient (REF) | payer MEDICARE, BC, SELFPAY ==
[2021-07-08 07:36] LABS: Bacteria 0 SEEN /hpf (None Seen); Mucous, Urine 0 SEEN /hpf (<or=2+); Red Blood Cells-Urine 0 SEEN /hpf (0-5)
[2021-07-08 08:06] LABS: Color, Urine Yellow (Yellow); Glucose, Dipstick Normal (Normal); Ketone-Dipstick Negative (Negative); Leukocyte Esterase-Dipstick 500 /ul (Negative); Nitrite-Dipstick Negative (Negative); Occult Blood-Urine Negative /ul (Negative); Protein-Dipstick Negative (Negative); Specific Gravity, Urine 1.015 (1.002-1.030); Urine Bilirubin Dipstick Negative (Negative); Urine Clarity Sl. Cloudy (Clear); Urine Urobilinogen Normal (Normal)
[2021-07-08 08:26] LABS: Calcium Oxalate Crystals Ur 1+ /hpf (<or=2+); Squamous Epithelial Cells - UA 0-5 SEEN /hpf (5-10); White Blood Cells 25-50 SEEN /hpf (0-5)
== END 2021-07-07 23:59 | disposition home or self-care (01) ==
LOC: OLS.SWAL 22:00
PROVIDERS: PCP Internal Medicine; Visit Provider Internal Medicine
DX: N39.0 Urinary tract infection, site not specified (principal)
CPT/HCPCS: 81001; 87086; 87088

== ENCOUNTER → 2021-07-09 | Outpatient (REF) | payer MEDICARE, BC, SELFPAY ==
[2021-07-09 07:05] LABS: Hematocrit 39.3 % (37-47); Hemoglobin 13.2 g/dL (12.0-15.0); Mean Corp Hgb Conc 33.6 g/dL (32-36); Mean Corpuscular Hgb 31.2 pg (27.0-32.0); Mean Corpuscular Volume 92.9 fL (81-99); Mean Platelet Vol. 10.3 fl (6.2-12.0); Platelet Count 218 K/mm3 (150-450); RBC Distribution Width CV 12.7 % (11.6-14.6); RBC Distribution Width SD 43.4 fl (35.1-43.9); Red Blood Count 4.23 M/mm3 (4.2-5.4); White Blood Count 6.3 K/mm3 (4.4-11.0)
[2021-07-09 07:21] LABS: BUN 17 mg/dL (7-18); Creatinine, Serum 0.96 mg/dL (0.55-1.02); EST Glomerular Filtration Rate 60 mL/min (>60); Glucose 108 mg/dL (74-106)
[2021-07-09 07:22] LABS: Anion Gap 5 (5-15); BUN/Creat Ratio 17.8 RATIO (10-20); Calcium,Total 9.1 mg/dL (8.5-10.1); Chloride 106 mmol/L (98-107); Est Glom Filt Rate - Afr Amer 72 mL/min (>60); Potassium 4.1 mmol/L (3.5-5.1); Sodium Level 138 mmol/L (136-145)
== END | disposition home or self-care (01) ==
LOC: OLS.SWAL 05:00
PROVIDERS: PCP Internal Medicine; Visit Provider Internal Medicine
DX: I10 Essential (primary) hypertension (principal)
CPT/HCPCS: 36415; 80048; 85027

== ENCOUNTER → 2021-07-24 | Outpatient (REF) | payer MEDICARE, BC, SELFPAY ==
[2021-07-24 08:42] LABS: Absolute Lymphocyte Count 1.55 X10^3/uL (0.83-4.51); Absolute Neutrophil Count 3.5 X10^3/uL (2.0-7.7); Basophil# 0.07 X10^3/uL; Basophil% 1.2 % (0-1); Eosinophil# 0.27 X10^3/uL; Eosinophils% 4.5 % (0-5); Hematocrit 39.7 % (37-47); Hemoglobin 13.9 g/dL (12.0-15.0); Lymphocyte # 1.55 X10^3/ul (0.83-4.51); Mean Corpuscular Volume 91.5 fL (81-99); Mean Platelet Vol. 10.6 fl (6.2-12.0); Monocyte# 0.55 X10^3/uL; Monocyte% 9.2 % (0-10); NRBC Flagged by Analyzer 0 % (0-5); Neutrophil # 3.49 X10^3/uL (2.7-7.7); Neutrophil % 58.4 % (47-70); Platelet Count 230 K/mm3 (150-450); RBC Distribution Width CV 12.3 % (11.6-14.6); RBC Distribution Width SD 41.4 fl (35.1-43.9); Red Blood Count 4.34 M/mm3 (4.2-5.4)
[2021-07-24 08:55] LABS: Anion Gap 5 (5-15); BUN 15 mg/dL (7-18); BUN/Creat Ratio 15.6 RATIO (10-20); Calcium,Total 9.5 mg/dL (8.5-10.1); Chloride 104 mmol/L (98-107); Creatinine, Serum 0.96 mg/dL (0.55-1.02); EST Glomerular Filtration Rate 59 mL/min (>60); Est Glom Filt Rate - Afr Amer 72 mL/min (>60); Glucose 108 mg/dL (74-106); Potassium 3.8 mmol/L (3.5-5.1); Sodium Level 138 mmol/L (136-145)
== END | disposition home or self-care (01) ==
LOC: OLS.SWAL 06:45
PROVIDERS: PCP Internal Medicine; Visit Provider Internal Medicine
DX: F03.90 Unspecified dementia, unspecified severity, without behavioral disturbance, psychotic disturbance, mood disturbance, and anxiety (principal); F33.9 Major depressive disorder, recurrent, unspecified; F41.9 Anxiety disorder, unspecified
CPT/HCPCS: 36415; 80048; 85025

== ENCOUNTER → 2021-08-28 | Outpatient (REF) | payer MEDICARE, BC, SELFPAY ==
[2021-08-28 07:22] LABS: Hematocrit 38.7 % (37-47); Hemoglobin 13.1 g/dL (12.0-15.0); Mean Corp Hgb Conc 33.9 g/dL (32-36); Mean Corpuscular Hgb 31.8 pg (27.0-32.0); Mean Corpuscular Volume 93.9 fL (81-99); Mean Platelet Vol. 10.4 fl (6.2-12.0); Platelet Count 219 K/mm3 (150-450); RBC Distribution Width CV 12.8 % (11.6-14.6); RBC Distribution Width SD 44.3 fl (35.1-43.9); Red Blood Count 4.12 M/mm3 (4.2-5.4); White Blood Count 6.9 K/mm3 (4.4-11.0)
[2021-08-28 07:35] LABS: Anion Gap 4 (5-15); BUN 12 mg/dL (7-18); BUN/Creat Ratio 13.3 RATIO (10-20); Calcium,Total 9.2 mg/dL (8.5-10.1); Chloride 104 mmol/L (98-107); EST Glomerular Filtration Rate 64 mL/min (>60); Est Glom Filt Rate - Afr Amer 78 mL/min (>60); Glucose 102 mg/dL (74-106); Potassium 4.1 mmol/L (3.5-5.1); Sodium Level 139 mmol/L (136-145)
== END | disposition home or self-care (01) ==
LOC: OLS.SWAL 05:00
PROVIDERS: PCP Internal Medicine; Visit Provider Internal Medicine
DX: I10 Essential (primary) hypertension (principal)
CPT/HCPCS: 36415; 80048; 85027

== ENCOUNTER → 2021-10-07 05:00 | Outpatient (REF) | payer MEDICARE, BC, SELFPAY ==
[2021-10-07 09:45] LABS: Vitamin B12 283 pg/mL (211-911); Vitamin D,25 Hydroxy 78.8 ng/mL
== END ==
LOC: OLS.SWAL 05:00
PROVIDERS: PCP Internal Medicine; Visit Provider Internal Medicine
DX: M62.81 Muscle weakness (generalized) (principal)
CPT/HCPCS: 36415; 82306; 82607

== ENCOUNTER 2021-10-27 17:54 | Emergency (ER) | payer MEDICARE, BC, SELFPAY ==
[2021-10-27 17:55] VITALS: BP 182/67; PULSE 63; RESP 22; TEMP 37; O2SAT 94; BMI 33.0
--- NOTE | 2021-10-27 18:52 | CT_ITS ---
STUDY: CT BRAIN WITHOUT CONTRAST REASON FOR EXAM: Female, 81 years old. confusion RADIATION DOSAGE (If Supplied By Facility): CTDIvol = ( 44.99 ) mGy, DLP = ( 796.11 ) mGycm TECHNIQUE: Transaxial CT imaging of the brain was performed without administration of intravenous contrast material. Individualized dose optimization techniques were used for this CT. COMPARISON: 04/23/2020 FINDINGS: Normal soft tissue structures. Normal calvarium. There is moderate cerebral atrophy with widening of the extra-axial spaces and ventricular dilatation. There are areas of decreased attenuation within the white matter tracts of the supratentorial brain, consistent with microvascular disease changes. Normal basal ganglia and thalami. Normal brainstem. Normal cerebellum. There is no intracranial hemorrhage. There are no findings of an acute ischemic infarction. Air-fluid level in left sphenoid sinus consistent with acute sinusitis. CT/Brain/Head without Contrast IMPRESSION: Chronic involutional changes of the brain. Electronically Signed: Edward Dick MD at 20:36 EDT ,
--- NOTE | 2021-10-27 18:53 | EKG12_ITS ---
Test Reason : CONFUSION Blood Pressure : / mmHG Vent. Rate : 061 BPM Atrial Rate : 061 BPM P-R Int : 162 ms QRS Dur : 082 ms QT Int : 432 ms P-R-T Axes : 050 023 058 degrees QTc Int : 434 ms Normal sinus rhythm Nonspecific ST and T wave abnormality Abnormal ECG Confirmed by MICHAEL SCHWARTZ, NAHEED ([id number]), digital editor NERISSA OSBORN ([id number]) on 10/29/2021 8:26:14 AM Referred By: [place] Confirmed By:NAHEED RODRIGUEZ MD
--- NOTE | 2021-10-27 18:54 | EX.ED.DYSGE1 ---
HPI History of Present Illness Chief Complaint: Confusion Informant: patient and family Narrative Narrative: Family reports patient has been having increasing falls at her extended care facility and has seemed more confused recently. Patient denies any pain. She reportedly was complaining of nausea and diarrhea earlier today. She states she has had longstanding diarrhea and that is not anything new. [facility] Medical History (Updated 10/27/21 @ 21:[address] Zoë Haynes MD) Anxiety Dementia Depression GERD (gastroesophageal reflux disease) History of falling HTN (hypertension) Hypothyroid IBS (irritable bowel syndrome) Muscle weakness (generalized) Home Medications buspirone 15 mg tablet 15 mg PO TID ANXIETY 10/03/18 [History Last Taken Unknown] losartan 100 mg tablet 100 mg PO QHS HIGH CHOLESTEROL 10/03/18 [History Last Taken Unknown] pantoprazole 40 mg tablet,delayed release 40 mg PO DAILY REFLUX 10/03/18 [History Last Taken Unknown] paroxetine HCl 37.5 mg tablet,extended release 24 hr 37.5 mg PO DAILY DEPRESSION 10/03/18 [History Last Taken Unknown] ascorbic acid (vitamin C) 500 mg tablet 500 mg PO DAILY SUPPLEMENT 04/25/20 [History Last Taken Unknown] atenolol 50 mg tablet 50 mg PO DAILY BP 04/25/20 [History Last Taken Unknown] calcium carbonate 250 mg-vitamin D3 3.125 mcg (125 unit) tablet 1 ea PO BID SUPPLEMENT 04/25/20 [History Last Taken Unknown] multivitamin 1 ea PO DAILY SUPPLEMENT 04/25/20 [History Last Taken Unknown] oxybutynin chloride 5 mg tablet 10 mg PO DAILY Check with primary doctor 04/25/20 [History Last Taken Unknown] paroxetine HCl 25 mg tablet,extended release 24 hr 25 mg PO DAILY DEPRESSION 04/25/20 [History Last Taken Unknown] ipratropium 0.5 mg-albuterol 3 mg (2.5 mg base)/3 mL nebulization soln 3 ml inhalation Q4HWA.RT 04/26/20 [Rx Last Taken Unknown] cephalexin 500 mg capsule 500 mg PO Q12 #6 caps 10/27/21 [Rx Last Taken Unknown] cholecalciferol (vitamin D3) 50 mcg (2,000 unit) tablet (Vitamin D3) 50 mcg PO DAILY 10/27/21 [History Last Taken Unknown] fluoride (sodium) 1.1 % dental paste (PreviDent 5000 Booster Plus) 10/27/21 [History Last Taken Unknown] folic acid 1 mg tablet 1 mg PO DAILY 10/27/21 [History Last Taken Unknown] loperamide 2 mg tablet (Imodium A-D) 2 mg PO Q6H PRN Diarrhea 10/27/21 [History Last Taken Unknown] memantine 10 mg tablet (Namenda) 10 mg PO BID 10/27/21 [History Last Taken Unknown] pantoprazole 40 mg tablet,delayed release 40 mg PO DAILY 10/27/21 [History Last Taken Unknown] triamcinolone acetonide 0.1 % topical cream 1 applic topical DAILY 10/27/21 [History Last Taken Unknown] venlafaxine 37.5 mg capsule,extended release 24 hr (Effexor XR) 37.5 mg PO DAILY 10/27/21 [History Last Taken Unknown] Allergy/AdvReac Type Severity Reaction Status Date / Time hydrochlorothiazide Allergy NEEDS Verified 10/27/21 17:59 FOLLOW-UP lisinopril Allergy NEEDS Verified 10/27/21 17:59 FOLLOW-UP Sulfa (Sulfonamide Allergy Unknown Verified 10/27/21 17:59 Antibiotics) Social History Smoking Status: Former smoker ROS ROS ED Constitutional Constitutional ED: Denies chills or fever(s) Eyes Eyes: Denies change in vision or discharge from eye(s) ENT ENT ED: Denies discharge from eye(s), rhinorrhea or sore throat Cardiovascular Cardiovascular: Denies chest pain or palpitations Respiratory/Chest Respiratory/Chest: Denies cough or dyspnea Gastrointestinal Gastrointestinal: Reports diarrhea and nausea; Denies abdominal pain or vomiting Genitourinary Genitourinary ED: Denies dysuria Musculoskeletal Musculoskeletal: Denies back pain or extremity pain Integumentary Denies Abrasions or rash Neurologic Neurologic: Reports weakness; Denies headache(s) Allergic/Immunologic Allergic/Immunologic ED: Denies lip swelling or urticaria EXAM Physical Exam Const Vital Signs: 10/27/21 17:55 10/27/21 20:33 Temperature 98.6 F Temperature Source Oral Pulse Rate 63 60 Respiratory Rate 22 H 12 Blood Pressure 182/67 H 181/79 H Blood Pressure Mean 105 113 Pulse Ox 94 95 Oxygen Delivery Method Room Air Room Air Positive well nourished and well developed General Appearance ED: well developed HEENT Reports normocephalic and head/scalp atraumatic Eyes PERRL and EOMs intact bilaterally Neck supple Chest Wall inspection of chest normal and palpation of chest normal Resp normal respiratory effort and clear to auscultation bilaterally Cardio regular rate and regular rhythm GI normal to inspection, nondistended, normoactive bowel sounds Palpation: soft Extremity normal to inspection Neuro oriented x3 and no sensory deficits noted Sensorium / Orientation: alert Psych mental status grossly normal Skin no rashes or lesions noted MDM MDM MDM Narrative Medical decision making narrative: Head CT, lab work, urinalysis obtained. EKG ordered. Lab Data Labs: Laboratory Results - last 24 hr 10/27/21 10/27/21 10/27/21 18:10 18:10 18:36 WBC 7.1 RBC 4.35 Hgb 13.7 Hct 41.1 MCV 94.5 MCH 31.5 MCHC 33.3 RDW Std Deviation 43.3 RDW Coeff of Kacy 12.4 Plt Count 244 MPV 10.3 Immature Gran % (Auto) 0.400 Neut % (Auto) 68.7 Lymph % (Auto) 18.1 L [place] % (Auto) 9.3 Eos % (Auto) 2.7 Baso % (Auto) 0.8 Absolute Neuts (auto) 4.9 Absolute Lymphs (auto) 1.29 Nucleated RBC % 0 Sodium 136 Potassium 4.4 Chloride 103 Carbon Dioxide 28.0 Anion Gap 5 BUN 17 Creatinine 1.02 Estim Creat Clear Calc 31.60 Est GFR (MDRD) Af Amer 67 Est GFR (MDRD) Non-Af 55 L BUN/Creatinine Ratio 16.7 Glucose 87 Calcium 9.7 Total Bilirubin 0.40 Direct Bilirubin 0.07 AST 21 ALT 23 Alkaline Phosphatase 69 Total Protein 7.5 Albumin 4.1 Globulin 3.4 Urine Color Yellow Urine Clarity Clear Urine pH 7.0 Ur Specific [place] 1.010 Urine Protein Negative Urine Glucose (UA) Normal Urine Ketones Negative Urine Occult Blood Negative Urine Nitrite Negative Urine Bilirubin Negative Urine Urobilinogen Normal Ur Leukocyte Esterase 100 H Urine RBC 0 SEEN Urine WBC 0-5 SEEN Ur Squamous Epith Cells 0-5 SEEN Urine Bacteria 2+ Urine Mucus 0 SEEN Radiography Diagnostic Testing: Clinical Impression(s) from Imaging Studies Brain CT 10/27/21 18:52 IMPRESSION: Chronic involutional changes of the brain. Electronically Signed: Edward Dick MD at 20:36 EDT , EKG Initial EKG: Attestation: I personally reviewed and interpreted this EKG as follows: Interpretation: Sinus Rhythm (Sinus at [address].) Treatment and Re-Evaluation Narrative: On repeat evaluation patient resting comfortably. Head CT is unremarkable. Lab work is normal. Urinalysis does show 2+ bacteria. With patient having increased falls and some confusion this may be contributing. Urine will be sent for culture and she will be treated with a 3-day course of Keflex. Family at bedside updated on treatment plan and agrees. Patient be discharged back to [facility]. Discharge Plan Triage Chief Complaint: Confusion ED Provider: Zoë Haynes Dx/Rx/DC Orders Clinical Impression: Confusion, UTI (urinary tract infection) Instructions: ED Confusion, ED CYSTITIS Female Adult Prescriptions: New cephalexin 500 mg capsule 500 mg PO Q12 Qty: 6 0RF No Action pantoprazole 40 MG tablet,delayed release (DR/EC) 40 mg PO DAILY losartan 100 MG tablet 100 mg PO QHS buspirone 15 MG tablet 15 mg PO TID paroxetine HCl 37.5 MG tablet extended release 24 hr 37.5 mg PO DAILY Rx Instructions: GIVE IN ADDITION TO 25MG DOSE multivitamin 1 EACH tablet 1 ea PO DAILY ascorbic acid (vitamin C) 500 MG tablet 500 mg PO DAILY oxybutynin chloride 5 MG tablet 10 mg PO DAILY atenolol 50 MG tablet 50 mg PO DAILY paroxetine HCl 25 MG tablet extended release 24 hr 25 mg PO DAILY Rx Instructions: GIVE IN ADDITION TO 37.5MG DOSE calcium carbonate-vitamin D3 1 EACH tablet 1 ea PO BID ipratropium-albuterol 3 ML solution for nebulization 3 ml INHALATION Q4HWA.RT 0RF venlafaxine [Effexor XR] 37.5 mg Capsule,Extended Release 24hr 37.5 mg PO DAILY loperamide [Imodium A-D] 2 mg Tablet 2 mg PO Q6H PRN (Reason: Diarrhea) triamcinolone acetonide 0.1 % Cream 1 applic TOPICAL DAILY pantoprazole 40 mg Tablet,Delayed Release (Dr/Ec) 40 mg PO DAILY folic acid 1 mg Tablet 1 mg PO DAILY memantine [Namenda] 10 mg Tablet 10 mg PO BID fluoride (sodium) [PreviDent 5000 Booster Plus] 1.1 % Paste cholecalciferol (vitamin D3) [Vitamin D3] 50 mcg (2,000 unit) Tablet 50 mcg PO DAILY Primary Care Provider: Gonsalo Sanchez Referrals: Gonsalo Sanchez MD [Primary Care Provider] - 1 Week if not improving Disposition Disposition: Home, Self Care
[2021-10-27 19:31] LABS: Mucous, Urine 0 SEEN /hpf (<or=2+); Red Blood Cells-Urine 0 SEEN /hpf (0-5)
[2021-10-27 19:34] LABS: Absolute Lymphocyte Count 1.29 X10^3/uL (0.83-4.51); Absolute Neutrophil Count 4.9 X10^3/uL (2.0-7.7); Basophil# 0.06 X10^3/uL; Basophil% 0.8 % (0-1); Eosinophil# 0.19 X10^3/uL; Eosinophils% 2.7 % (0-5); Hematocrit 41.1 % (37-47); Hemoglobin 13.7 g/dL (12.0-15.0); Lymphocyte # 1.29 X10^3/ul (0.83-4.51); Lymphocyte % 18.1 % (19-41); Mean Corp Hgb Conc 33.3 g/dL (32-36); Mean Corpuscular Hgb 31.5 pg (27.0-32.0); Mean Corpuscular Volume 94.5 fL (81-99); Mean Platelet Vol. 10.3 fl (6.2-12.0); Monocyte# 0.66 X10^3/uL; Monocyte% 9.3 % (0-10); NRBC Flagged by Analyzer 0 % (0-5); Neutrophil # 4.89 X10^3/uL (2.7-7.7); Neutrophil % 68.7 % (47-70); Platelet Count 244 K/mm3 (150-450); RBC Distribution Width CV 12.4 % (11.6-14.6); RBC Distribution Width SD 43.3 fl (35.1-43.9); Red Blood Count 4.35 M/mm3 (4.2-5.4); White Blood Count 7.1 K/mm3 (4.4-11.0)
[2021-10-27 19:35] LABS: Color, Urine Yellow (Yellow); Glucose, Dipstick Normal (Normal); Ketone-Dipstick Negative (Negative); Leukocyte Esterase-Dipstick 100 /ul (Negative); Nitrite-Dipstick Negative (Negative); Occult Blood-Urine Negative /ul (Negative); Protein-Dipstick Negative (Negative); Urine Bilirubin Dipstick Negative (Negative); Urine Clarity Clear (Clear); Urine Urobilinogen Normal (Normal)
[2021-10-27 19:42] LABS: Squamous Epithelial Cells - UA 0-5 SEEN /hpf (5-10); White Blood Cells 0-5 SEEN /hpf (0-5)
[2021-10-27 19:43] LABS: Bacteria 2+ /hpf (None Seen)
[2021-10-27 19:57] LABS: AST(SGOT) 21 U/L (15-37); Alanine Aminotransfer ALT/SGPT 23 U/L (13-56); Albumin, Serum 4.1 g/dL (3.2-5.0); Alkaline Phosphatase 69 U/L (45-117); Anion Gap 5 (5-15); BUN 17 mg/dL (7-18); BUN/Creat Ratio 16.7 RATIO (10-20); Bilirubin, Direct 0.07 mg/dL (0.00-0.30); Calcium,Total 9.7 mg/dL (8.5-10.1); Chloride 103 mmol/L (98-107); Creatinine, Serum 1.02 mg/dL (0.55-1.02); EST Glomerular Filtration Rate 55 mL/min (>60); Est Glom Filt Rate - Afr Amer 67 mL/min (>60); Globulin 3.4 g/dL (2.2-4.2); Glucose 87 mg/dL (74-106); Potassium 4.4 mmol/L (3.5-5.1); Protein, Total 7.5 g/dL (6.4-8.2); Sodium Level 136 mmol/L (136-145)
[2021-10-27 20:33] VITALS: BP 181/79; PULSE 60; RESP 12; O2SAT 95
[2021-10-27] MEDS: Cephalexin 250 MG Capsule 500 MG PO (21:33)
--- NOTE | 2021-10-27 22:01 | ED.RN ---
Report has been called to Debra at [facility]. Debra states concern for patient being a high fall risk. Rn states her bloodwork and CT scan results WNL. Patient does have a UTI and will be sent back with prescription for Keflex. No further questions from Debra at that time. eDbra has again called back asking us to keep patient for observation due to patient having multiple falls. Rn has stated there is no medical reason at this time to keep patient for observation in hospital. Debra also updated that transport will be about 3-4 hours before they arrive to [facility] to take patient back to [facility]. TRESA Stoddard notified of encounter.
--- NOTE | 2021-10-27 22:04 | NURSING ---
CALLED [facility] 2[facility], ETA 3-4 HOURS. THEY SAID THEY WILL CONTINUE TO CALL [facility] TO TRY AND FIND OTHER TRANSPORT BUT OF RIGHT NOW ETA IS ABOUT 0030/0130.
[2021-10-27 22:05] VITALS: PULSE 78; RESP 18; O2SAT 99
[2021-10-28 00:20] VITALS: PULSE 72; RESP 18; O2SAT 96
--- NOTE | 2021-10-28 01:55 | NURSING ---
SANJAY CALLED AT 0150 GAVE ETA OF 0730. CALLED [facility]YS[facility] BACK, THEY GAVE US A NEW ETA OF 2 HRS.
[2021-10-28 02:19] VITALS: RESP 16; O2SAT 98
--- NOTE | 2021-10-28 05:25 | NURSING ---
PHYSICIANS LEFT PATIENTS FOLDER OF PAPERWORK. CALLED BACK TO ASK THEM TO COME RETRIEVE IT, THEY SAID YES. THEY HAVE NOT CAME.
== END 2021-10-28 03:58 | disposition skilled nursing facility (03) ==
PROVIDERS: Emergency Provider Emergency Medicine; PCP Internal Medicine; Visit Provider Emergency Medicine
DX: R41.0 Disorientation, unspecified (principal); N39.0 Urinary tract infection, site not specified; I10 Essential (primary) hypertension; K21.9 Gastro-esophageal reflux disease without esophagitis; F41.9 Anxiety disorder, unspecified; F32.A Depression, unspecified; Z87.891 Personal history of nicotine dependence; Z79.899 Other long term (current) drug therapy
CPT/HCPCS: 70450; 80048; 80076; 81001; 85025; 87086; 93005; 99285; A4216

== ENCOUNTER → 2021-12-23 | Outpatient (REF) | payer MEDICARE, BC, SELFPAY ==
[2021-12-23 08:55] LABS: Absolute Lymphocyte Count 1.55 X10^3/uL (0.83-4.51); Absolute Neutrophil Count 2.9 X10^3/uL (2.0-7.7); Basophil# 0.05 X10^3/uL; Eosinophil# 0.23 X10^3/uL; Eosinophils% 4.4 % (0-5); Hematocrit 40.1 % (37-47); Lymphocyte # 1.55 X10^3/ul (0.83-4.51); Lymphocyte % 29.5 % (19-41); Mean Corp Hgb Conc 34.9 g/dL (32-36); Mean Corpuscular Hgb 32.9 pg (27.0-32.0); Mean Corpuscular Volume 94.1 fL (81-99); Mean Platelet Vol. 10.2 fl (6.2-12.0); Monocyte# 0.51 X10^3/uL; Monocyte% 9.7 % (0-10); NRBC Flagged by Analyzer 0 % (0-5); Neutrophil # 2.87 X10^3/uL (2.7-7.7); Neutrophil % 54.6 % (47-70); Platelet Count 223 K/mm3 (150-450); RBC Distribution Width CV 12.7 % (11.6-14.6); RBC Distribution Width SD 44.1 fl (35.1-43.9); Red Blood Count 4.26 M/mm3 (4.2-5.4); White Blood Count 5.3 K/mm3 (4.4-11.0)
[2021-12-23 09:10] LABS: Anion Gap 4 (5-15); BUN 13 mg/dL (7-18); BUN/Creat Ratio 15.2 RATIO (10-20); Calcium,Total 9.3 mg/dL (8.5-10.1); Chloride 109 mmol/L (98-107); Creatinine, Serum 0.85 mg/dL (0.55-1.02); EST Glomerular Filtration Rate 68 mL/min (>60); Est Glom Filt Rate - Afr Amer 82 mL/min (>60); Glucose 105 mg/dL (74-106); Potassium 4.2 mmol/L (3.5-5.1); Sodium Level 141 mmol/L (136-145)
== END ==
LOC: OLS.SWAL 05:00
PROVIDERS: PCP Internal Medicine; Visit Provider Internal Medicine
DX: I10 Essential (primary) hypertension (principal); E87.1 Hypo-osmolality and hyponatremia
CPT/HCPCS: 36415; 80048; 81241; 85025

== ENCOUNTER 2022-02-16 11:01 | Emergency (ER) | payer MEDICARE, BC, SELFPAY ==
[2022-02-16 11:03] VITALS: BP 180/102; PULSE 68; RESP 14; TEMP 36.6; O2SAT 97; BMI 34.1
--- NOTE | 2022-02-16 11:09 | EKG12_ITS ---
Test Reason : GENERAL ILLNESS Blood Pressure : / mmHG Vent. Rate : 067 BPM Atrial Rate : 067 BPM P-R Int : 150 ms QRS Dur : 078 ms QT Int : 460 ms P-R-T Axes : 063 034 059 degrees QTc Int : 486 ms Normal sinus rhythm Normal ECG Confirmed by MICHAEL SCHWARTZ, NAHEED ([id number]), food editor NERISSA OSBORN ([id number]) on 02/18/2022 8:18:32 AM Referred By: Confirmed By:NAHEED RODRIGUEZ MD
--- NOTE | 2022-02-16 11:10 | EDS_ITS ---
HPI <SAYRA England - Last Filed: 02/16/22 12:53> History of Present Illness Chief Complaint: General Illness Narrative Narrative: 81-year-old female with past medical history of hypertension, dementia presents from [facility] [place] after she was found on the ground in her room. When they stood her up she was unsteady which prompted them to call EMS for evaluation. Its not clear when the patient was last seen well. She does have significant dementia and cannot provide good history. She tells me she uses a walker. She has no pain and no acute complaints. PFSH <SAYRA England - Last Filed: 02/16/22 12:53> [facility] Medical History (Updated 02/16/22 @ 12:53 by SAYRA England) Anxiety Dementia Depression GERD (gastroesophageal reflux disease) History of falling HTN (hypertension) Hypothyroid IBS (irritable bowel syndrome) Muscle weakness (generalized) Home Medications buspirone 15 mg tablet 15 mg PO TID ANXIETY 10/03/18 [History Last Taken Unknown] losartan 100 mg tablet 100 mg PO QHS HIGH CHOLESTEROL 10/03/18 [History Last Taken Unknown] paroxetine HCl 37.5 mg tablet,extended release 24 hr 37.5 mg PO DAILY DEPRESSION 10/03/18 [History Last Taken Unknown] ascorbic acid (vitamin C) 500 mg tablet 500 mg PO DAILY SUPPLEMENT 04/25/20 [History Last Taken Unknown] atenolol 50 mg tablet 50 mg PO DAILY BP 04/25/20 [History Last Taken Unknown] calcium carbonate 250 mg-vitamin D3 3.125 mcg (125 unit) tablet 1 ea PO BID SUPPLEMENT 04/25/20 [History Last Taken Unknown] multivitamin 1 ea PO DAILY SUPPLEMENT 04/25/20 [History Last Taken Unknown] paroxetine HCl 25 mg tablet,extended release 24 hr 25 mg PO DAILY DEPRESSION 04/25/20 [History Last Taken Unknown] ipratropium 0.5 mg-albuterol 3 mg (2.5 mg base)/3 mL nebulization soln 3 ml inhalation Q4HWA.RT 04/26/20 [Rx Last Taken Unknown] cholecalciferol (vitamin D3) 50 mcg (2,000 unit) tablet (Vitamin D3) 50 mcg PO DAILY 10/27/21 [History Last Taken Unknown] fluoride (sodium) 1.1 % dental paste (PreviDent 5000 Booster Plus) 10/27/21 [History Last Taken Unknown] folic acid 1 mg tablet 1 mg PO DAILY 10/27/21 [History Last Taken Unknown] loperamide 2 mg tablet (Imodium A-D) 2 mg PO Q6H PRN Diarrhea 10/27/21 [History Last Taken Unknown] memantine 10 mg tablet (Namenda) 10 mg PO BID 10/27/21 [History Last Taken Unknown] pantoprazole 40 mg tablet,delayed release 40 mg PO DAILY 10/27/21 [History Last Taken Unknown] triamcinolone acetonide 0.1 % topical cream 1 applic topical DAILY 10/27/21 [History Last Taken Unknown] venlafaxine 37.5 mg capsule,extended release 24 hr (Effexor XR) 37.5 mg PO DAILY 10/27/21 [History Last Taken Unknown] acetaminophen 325 mg PO/SL PRN PRN Pain 02/16/22 [History Last Taken Unknown] Allergy/AdvReac Type Severity Reaction Status Date / Time hydrochlorothiazide Allergy NEEDS Verified 02/16/22 11:03 FOLLOW-UP lisinopril Allergy NEEDS Verified 02/16/22 11:03 FOLLOW-UP Sulfa (Sulfonamide Allergy Unknown Verified 02/16/22 11:03 Antibiotics) Social History Smoking Status: Former smoker ROS <SAYRA England - Last Filed: 02/16/22 12:53> ROS ED ROS Narrative Constitutional: Negative for fever, malaise. Eyes: Negative for visual change. ENT: Negative for sore throat, rhinorrhea. CVS: Negative for palpitations, chest pain. Respiratory: Negative for shortness of breath, cough. GI: Negative for abdominal pain, nausea, vomiting, diarrhea, constipation, melena, hematochezia. : Negative for dysuria. Neuro: Negative for headache. Skin: Negative for rash, abscess, or wound. Musc: Negative for joint pain, swelling, trauma. Heme: Negative for easy bruising, bleeding, lymphadenopathy. EXAM <SAYRA England - Last Filed: 02/16/22 12:53> Physical Exam Narrative Exam Narrative: CONST: Patient sitting in no acute distress. EYES: Normal inspection. ENT: Head normocephalic atraumatic, no raccoon eyes or garay sign, no hemotympanum, no nasal septal hematoma, no CSF otorrhea or rhinorrhea. Moist mucous membranes. NECK: Normal inspection. RESP: No respiratory distress, CTAB. CVS: Regular rate and rhythm, no murmur, no gallop. ABD: Soft and nontender, no guarding or rebound, nondistended. Back: Normal inspection, no midline spinal tenderness or step-offs. SKIN: Color normal, no rash, warm, dry, intact. EXTREMITIES: Normal appearance, no pedal edema. NEURO: Oriented to self and age. Moving all extremities. PSYCH: Normal affect. Const Vital Signs: 02/16/22 11:03 02/16/22 11:08 02/16/22 12:00 Temperature 97.8 F Temperature Source Temporal Pulse Rate 68 69 Respiratory Rate 14 13 Respiratory Effort Normal Non-Labored Respiratory Pattern Normal Blood Pressure 180/102 H 177/86 H Blood Pressure Mean 128 116 Pulse Ox 97 96 Oxygen Delivery Method Room Air Room Air <Dr. Stan Oliveira MD - Last Filed: 02/16/22 11:26> Physical Exam Const Vital Signs: 02/16/22 11:03 02/16/22 11:08 02/16/22 12:00 Temperature 97.8 F Temperature Source Temporal Pulse Rate 68 69 Respiratory Rate 14 13 Respiratory Effort Normal Non-Labored Respiratory Pattern Normal Blood Pressure 180/102 H 177/86 H Blood Pressure Mean 128 116 Pulse Ox 97 96 Oxygen Delivery Method Room Air Room Air MDM <SAYRA England - Last Filed: 02/16/22 12:53> [facility] Narrative Medical decision making narrative: PA: Patient was sent in by her SNF after an unwitnessed fall and reported unsteadiness on her feet. On exam she has no complaints is awake and alert. She has no signs of injury. Screening blood work is unremarkable. Total CK is 259. CXR and UA showed no infection. CT brain was obtained and also shows no acute findings. At this time she is stable for discharge back to SNF. Seen and evaluated independently and in conjunction with physician specimen preparation assistant. Agree with notes above unless documented otherwise. Patient states she is asymptomatic at this time, she thinks she remembers falli ng, drizzling down, was unsteady on her feet prior to being sent to the emergency department. On exam, no signs of injury, no signs of focal neurologic deficit, breathing without distress, clear to auscultation throughout with a regular heartbeat no murmurs, no tachycardia. We will perform work-up to rule out infections, rhabdomyolysis, intracranial injury. Lab Data Attestation: I reviewed the patient's lab results. Labs: Laboratory Results - last 24 hr 02/16/22 02/16/22 02/16/22 11:15 11:15 12:15 WBC 10.1 RBC 4.45 Hgb 14.2 Hct 42.1 MCV 94.6 MCH 31.9 MCHC 33.7 RDW Std Deviation 43.1 RDW Coeff of Kacy 12.4 Plt Count 243 MPV 10.2 Immature Gran % (Auto) 0.600 Neut % (Auto) 79.5 H Lymph % (Auto) 10.9 L [place] % (Auto) 7.0 Eos % (Auto) 1.4 Baso % (Auto) 0.6 Absolute Neuts (auto) 8.0 H Absolute Lymphs (auto) 1.10 Nucleated RBC % 0 Sodium 138 Potassium 4.2 Chloride 103 Carbon Dioxide 28.0 Anion Gap 7 BUN 19 H Creatinine 0.92 Estim Creat Clear Calc 35.03 Est GFR (MDRD) Af Amer 76 Est GFR (MDRD) Non-Af 62 BUN/Creatinine Ratio 20.7 H Glucose 122 H Calcium 9.6 Total Creatine Kinase 259 H Urine Color Yellow Urine Clarity Clear Urine pH 7.0 Ur Specific [place] 1.015 Urine Protein Negative Urine Glucose (UA) Normal Urine Ketones Negative Urine Occult Blood Negative Urine Nitrite Negative Urine Bilirubin Negative Urine Urobilinogen Normal Ur Leukocyte Esterase Negative Urine RBC 0 SEEN Urine WBC 0 SEEN Ur Squamous Epith Cells 0 SEEN Urine Bacteria 0 SEEN Urine Mucus 0 SEEN Radiography Diagnostic Testing: Clinical Impression(s) from Imaging Studies Brain CT 02/16/22 11:17 IMPRESSION: Chronic involutional changes of the brain. Electronically Signed: Stan Whitt MD at 12:21 EDT , Chest X-Ray 02/16/22 12:00 IMPRESSION: Degenerative changes, as described above. No demonstrated acute cardiopulmonary process. Electronically Signed: Stan Whitt MD at 12:32 EDT , ED attending interpretation shows normal heart size, no acute infiltrate, edema, or effusion. <Dr. Stan Oliveira MD - Last Filed: 02/16/22 11:26> MDM MDM Narrative Medical decision making narrative: Seen and evaluated independently and in conjunction with physician specimen preparation assistant. Agree with notes above unless documented otherwise. Patient states she is asymptomatic at this time, she thinks she remembers falling, drizzling down, was unsteady on her feet prior to being sent to the emergency department. On exam, no signs of injury, no signs of focal neurologic deficit, breathing without distress, clear to auscultation throughout with a regular heartbeat no murmurs, no tachycardia. We will perform work-up to rule out infections, rhabdomyolysis, intracranial injury. Lab Data Labs: Laboratory Results - last 24 hr 02/16/22 02/16/22 02/16/22 11:15 11:15 12:15 WBC 10.1 RBC 4.45 Hgb 14.2 Hct 42.1 MCV 94.6 MCH 31.9 MCHC 33.7 RDW Std Deviation 43.1 RDW Coeff of Kacy 12.4 Plt Count 243 MPV 10.2 Immature Gran % (Auto) 0.600 Neut % (Auto) 79.5 H Lymph % (Auto) 10.9 L [place] % (Auto) 7.0 Eos % (Auto) 1.4 Baso % (Auto) 0.6 Absolute Neuts (auto) 8.0 H Absolute Lymphs (auto) 1.10 Nucleated RBC % 0 Sodium 138 Potassium 4.2 Chloride 103 Carbon Dioxide 28.0 Anion Gap 7 BUN 19 H Creatinine 0.92 Estim Creat Clear Calc 35.03 Est GFR (MDRD) Af Amer 76 Est GFR (MDRD) Non-Af 62 BUN/Creatinine Ratio 20.7 H Glucose 122 H Calcium 9.6 Total Creatine Kinase 259 H Urine Color Yellow Urine Clarity Clear Urine pH 7.0 Ur Specific [place] 1.015 Urine Protein Negative Urine Glucose (UA) Normal Urine Ketones Negative Urine Occult Blood Negative Urine Nitrite Negative Urine Bilirubin Negative Urine Urobilinogen Normal Ur Leukocyte Esterase Negative Urine RBC 0 SEEN Urine WBC 0 SEEN Ur Squamous Epith Cells 0 SEEN Urine Bacteria 0 SEEN Urine Mucus 0 SEEN Radiography Diagnostic Testing: Clinical Impression(s) from Imaging Studies Brain CT 02/16/22 11:17 IMPRESSION: Chronic involutional changes of the brain. Electronically Signed: Stan Whitt MD at 12:21 EDT , Chest X-Ray 02/16/22 12:00 IMPRESSION: Degenerative changes, as described above. No demonstrated acute cardiopulmonary process. Electronically Signed: Stan Whitt MD at 12:32 EDT , Rhythm Strip Rhythm Strip: Sinus Rhythm Rate: 70 Ectopy: None EKG Initial EKG: Attestation: I personally reviewed and interpreted this EKG as follows: Interpretation: Sinus Rhythm and No Acute Injury Pattern Comments: normal EKG Discharge Plan Triage Chief Complaint: General Illness Other Complaint: Fall ED Midlevel Provider: Sabine Hebert ED Provider: Stan Oliveira Dx/Rx/DC Orders Clinical Impression: Unwitnessed fall, No traumatic injury Instructions: ED Fall with Uncertain Cause Prescriptions: No Action losartan 100 MG tablet 100 mg PO QHS buspirone 15 MG tablet 15 mg PO TID paroxetine HCl 37.5 MG tablet extended release 24 hr 37.5 mg PO DAILY Rx Instructions: GIVE IN ADDITION TO 25MG DOSE multivitamin 1 EACH tablet 1 ea PO DAILY ascorbic acid (vitamin C) 500 MG tablet 500 mg PO DAILY atenolol 50 MG tablet 50 mg PO DAILY paroxetine HCl 25 MG tablet extended release 24 hr 25 mg PO DAILY Rx Instructions: GIVE IN ADDITION TO 37.5MG DOSE calcium carbonate-vitamin D3 1 EACH tablet 1 ea PO BID ipratropium-albuterol 3 ML solution for nebulization 3 ml INHALATION Q4HWA.RT 0RF venlafaxine [Effexor XR] 37.5 mg Capsule,Extended Release 24hr 37.5 mg PO DAILY loperamide [Imodium A-D] 2 mg Tablet 2 mg PO Q6H PRN (Reason: Diarrhea) triamcinolone acetonide 0.1 % Cream 1 applic TOPICAL DAILY pantoprazole 40 mg Tablet,Delayed Release (Dr/Ec) 40 mg PO DAILY folic acid 1 mg Tablet 1 mg PO DAILY memantine [Namenda] 10 mg Tablet 10 mg PO BID fluoride (sodium) [PreviDent 5000 Booster Plus] 1.1 % Paste cholecalciferol (vitamin D3) [Vitamin D3] 50 mcg (2,000 unit) Tablet 50 mcg PO DAILY acetaminophen 325 mg PO/SL PRN PRN (Reason: Pain) Primary Care Provider: [facility] Doctor,Out of Referrals: [facility] Doctor,Out of [Primary Care Provider] - Activity Restrictions/Additional Instructions: Patient has no injuries on exam. Blood work and urine are all unremarkable. She can follow-up with her SNF doctor as needed. Disposition Disposition: Home, Self Care
--- NOTE | 2022-02-16 11:17 | CT_ITS ---
STUDY: CT BRAIN WITHOUT CONTRAST REASON FOR EXAM: Female, 81 years old. Fall RADIATION DOSAGE (If Supplied By Facility): CTDIvol = ( 44.99 ) mGy, DLP = ( 796.11 ) mGycm TECHNIQUE: Transaxial CT imaging of the brain was performed without administration of intravenous contrast material. Individualized dose optimization techniques were used for this CT. COMPARISON: October 27, 2021 FINDINGS: Normal soft tissue structures. Normal calvarium. There is moderate cerebral atrophy with widening of the extra-axial spaces and ventricular dilatation. There are areas of decreased attenuation within the white matter tracts of the supratentorial brain, consistent with microvascular disease changes. Normal basal ganglia and thalami. Normal brainstem. Normal cerebellum. There is no intracranial hemorrhage. There are no findings of an acute ischemic infarction. Normal visualized paranasal sinuses. CT/Brain/Head without Contrast IMPRESSION: Chronic involutional changes of the brain. Electronically Signed: Stan Whitt MD at 12:21 EDT ,
[2022-02-16 11:31] LABS: Basophil# 0.06 X10^3/uL; Basophil% 0.6 % (0-1); Eosinophil# 0.14 X10^3/uL; Eosinophils% 1.4 % (0-5); Hematocrit 42.1 % (37-47); Hemoglobin 14.2 g/dL (12.0-15.0); Lymphocyte % 10.9 % (19-41); Mean Corp Hgb Conc 33.7 g/dL (32-36); Mean Corpuscular Hgb 31.9 pg (27.0-32.0); Mean Corpuscular Volume 94.6 fL (81-99); Mean Platelet Vol. 10.2 fl (6.2-12.0); NRBC Flagged by Analyzer 0 % (0-5); Neutrophil # 7.99 X10^3/uL (2.7-7.7); Neutrophil % 79.5 % (47-70); Platelet Count 243 K/mm3 (150-450); RBC Distribution Width CV 12.4 % (11.6-14.6); RBC Distribution Width SD 43.1 fl (35.1-43.9); Red Blood Count 4.45 M/mm3 (4.2-5.4); White Blood Count 10.1 K/mm3 (4.4-11.0)
[2022-02-16 11:42] LABS: Anion Gap 7 (5-15); BUN 19 mg/dL (7-18); BUN/Creat Ratio 20.7 RATIO (10-20); CPK Total, Creatine Kinase 259 U/L (26-192); Calcium,Total 9.6 mg/dL (8.5-10.1); Chloride 103 mmol/L (98-107); Creatinine, Serum 0.92 mg/dL (0.55-1.02); EST Glomerular Filtration Rate 62 mL/min (>60); Est Glom Filt Rate - Afr Amer 76 mL/min (>60); Estimated Creatinine Clearance 35.03 ml/min; Glucose 122 mg/dL (74-106); Potassium 4.2 mmol/L (3.5-5.1); Sodium Level 138 mmol/L (136-145)
[2022-02-16 12:00] VITALS: BP 177/86; PULSE 69; RESP 13; O2SAT 96
--- NOTE | 2022-02-16 12:00 | RAD_ITS ---
STUDY: X-RAY CHEST REASON FOR EXAM: Female, 81 years old. Fall TECHNIQUE: Single AP portable view of the chest. COMPARISON: April 23, 2020 FINDINGS: The lungs are clear and expanded. There are granulomatous calcifications of the lungs are There is no demonstrated pleural abnormality. Normal size heart. Normal mediastinum and farzad. Normal visualized pulmonary arteries. There is atherosclerotic calcification of the aortic arch with tortuosity. There is scoliosis and degenerative change of the spine. Normal visualized ribs, clavicles, and shoulders. There is no demonstrated abnormality of the visualized soft tissue structures of the upper abdomen. RAD/Chest 1 View (Portable) IMPRESSION: Degenerative changes, as described above. No demonstrated acute cardiopulmonary process. Electronically Signed: Stan Whitt MD at 12:32 EDT ,
[2022-02-16 12:16] LABS: Bacteria 0 SEEN /hpf (None Seen); Mucous, Urine 0 SEEN /hpf (<or=2+); Red Blood Cells-Urine 0 SEEN /hpf (0-5); Squamous Epithelial Cells - UA 0 SEEN /hpf (5-10); White Blood Cells 0 SEEN /hpf (0-5)
[2022-02-16 12:31] LABS: Color, Urine Yellow (Yellow); Glucose, Dipstick Normal (Normal); Ketone-Dipstick Negative (Negative); Leukocyte Esterase-Dipstick Negative /ul (Negative); Nitrite-Dipstick Negative (Negative); Occult Blood-Urine Negative /ul (Negative); Protein-Dipstick Negative (Negative); Specific Gravity, Urine 1.015 (1.002-1.030); Urine Bilirubin Dipstick Negative (Negative); Urine Clarity Clear (Clear); Urine Urobilinogen Normal (Normal)
[2022-02-16 13:02] VITALS: BP 154/98; PULSE 66; RESP 16; O2SAT 96
== END 2022-02-16 13:16 | disposition home or self-care (01) ==
PROVIDERS: Physician Assistant; Emergency Provider Emergency Medicine; Visit Provider Emergency Medicine
DX: F03.90 Unspecified dementia, unspecified severity, without behavioral disturbance, psychotic disturbance, mood disturbance, and anxiety (principal); Z87.891 Personal history of nicotine dependence; I10 Essential (primary) hypertension; F41.9 Anxiety disorder, unspecified; F32.A Depression, unspecified; K21.9 Gastro-esophageal reflux disease without esophagitis; W19.XXXA Unspecified fall, initial encounter; Z79.899 Other long term (current) drug therapy
CPT/HCPCS: 70450; 71045; 80048; 81001; 82550; 85025; 93005; 99285; A4216

== ENCOUNTER 2022-02-24 14:56 | Observation (INO) | payer MEDICARE, BC, SELFPAY ==
[2022-02-24 14:59] VITALS: BP 156/67; PULSE 64; RESP 16; TEMP 35.9; O2SAT 96; BMI 34.1
--- NOTE | 2022-02-24 15:33 | EKG12_ITS ---
Test Reason : WEAKNESS Blood Pressure : / mmHG Vent. Rate : 063 BPM Atrial Rate : 063 BPM P-R Int : 160 ms QRS Dur : 078 ms QT Int : 408 ms P-R-T Axes : 054 030 069 degrees QTc Int : 417 ms Normal sinus rhythm Nonspecific ST and T wave abnormality Abnormal ECG Confirmed by MICHAEL SCHWARTZ, NAHEED ([id number]), metropolitan editor NERISSA OSBORN ([id number]) on 02/26/2022 10:53:18 AM Referred By: Confirmed By:NAHEED RODRIGUEZ MD
--- NOTE | 2022-02-24 15:35 | EX.ED.DYSGE1 ---
HPI History of Present Illness Chief Complaint: Weakness Informant: patient Narrative Narrative: Patient was sent from assisted living due to generalized weakness. Normally she can get up and ambulate herself but she is just too weak to do that today. She is in assisted living. She does have her own apartment. She cannot get up and go to meals. The staff really could not get her walking even with some mild assistance. They felt she was too weak so they sent her in. It sounds like she has been getting more weak over the last 2 or 3 days. She fell yesterday and the day before. She states she did not pass out she was just too weak to stand. She did not hurt herself. She states she hit her knee but it does not hurt. She never hit her head. She states she does get a little cough on occasion but that is not new. She is not short of breath. No change in urination. She denies any change in her medication that she knows of but the facility does bring them to her. She states she has had episodes like this before but at this point she just feels overall weaker than normal. [facility] Medical History Anxiety Dementia Depression GERD (gastroesophageal reflux disease) History of falling HTN (hypertension) Hypothyroid IBS (irritable bowel syndrome) Muscle weakness (generalized) Home Medications buspirone 15 mg tablet 15 mg PO TID ANXIETY 10/03/18 [History Last Taken Unknown] losartan 100 mg tablet 100 mg PO QHS HIGH CHOLESTEROL 10/03/18 [History Last Taken Unknown] paroxetine HCl 37.5 mg tablet,extended release 24 hr 37.5 mg PO DAILY DEPRESSION 10/03/18 [History Last Taken Unknown] ascorbic acid (vitamin C) 500 mg tablet 500 mg PO DAILY SUPPLEMENT 04/25/20 [History Last Taken Unknown] atenolol 50 mg tablet 50 mg PO DAILY BP 04/25/20 [History Last Taken Unknown] calcium carbonate 250 mg-vitamin D3 3.125 mcg (125 unit) tablet 1 ea PO BID SUPPLEMENT 04/25/20 [History Last Taken Unknown] multivitamin 1 ea PO DAILY SUPPLEMENT 04/25/20 [History Last Taken Unknown] paroxetine HCl 25 mg tablet,extended release 24 hr 25 mg PO DAILY DEPRESSION 04/25/20 [History Last Taken Unknown] ipratropium 0.5 mg-albuterol 3 mg (2.5 mg base)/3 mL nebulization soln 3 ml inhalation Q4HWA.RT 04/26/20 [Rx Last Taken Unknown] cholecalciferol (vitamin D3) 50 mcg (2,000 unit) tablet (Vitamin D3) 50 mcg PO DAILY 10/27/21 [History Last Taken Unknown] fluoride (sodium) 1.1 % dental paste (PreviDent 5000 Booster Plus) 10/27/21 [History Last Taken Unknown] folic acid 1 mg tablet 1 mg PO DAILY 10/27/21 [History Last Taken Unknown] loperamide 2 mg tablet (Imodium A-D) 2 mg PO Q6H PRN Diarrhea 10/27/21 [History Last Taken Unknown] memantine 10 mg tablet (Namenda) 10 mg PO BID 10/27/21 [History Last Taken Unknown] pantoprazole 40 mg tablet,delayed release 40 mg PO DAILY 10/27/21 [History Last Taken Unknown] triamcinolone acetonide 0.1 % topical cream 1 applic topical DAILY 10/27/21 [History Last Taken Unknown] venlafaxine 37.5 mg capsule,extended release 24 hr (Effexor XR) 37.5 mg PO DAILY 10/27/21 [History Last Taken Unknown] acetaminophen 325 mg PO/SL PRN PRN Pain 02/16/22 [History Last Taken Unknown] Allergy/AdvReac Type Severity Reaction Status Date / Time hydrochlorothiazide Allergy NEEDS Verified 02/24/22 15:01 FOLLOW-UP lisinopril Allergy NEEDS Verified 02/24/22 15:01 FOLLOW-UP Sulfa (Sulfonamide Allergy Unknown Verified 02/24/22 15:01 Antibiotics) Social History Smoking Status: Former smoker ROS ROS ED Constitutional Constitutional ED: Denies chills or fever(s) Eyes Eyes: Denies change in vision ENT ENT ED: Denies rhinorrhea or sore throat Cardiovascular Cardiovascular: Denies chest pain or palpitations Respiratory/Chest Respiratory/Chest: Reports cough; Denies dyspnea or sputum Gastrointestinal Gastrointestinal: Denies abdominal pain, constipation, diarrhea, nausea or vomiting Genitourinary Genitourinary ED: Denies dysuria Musculoskeletal Musculoskeletal: Denies myalgias Integumentary Denies rash Neurologic Neurologic: Reports other Details: Denies focal weakness but does admit to generalized weakness. ; Denies headache(s), paresthesias or weakness Endocrine Endocrinology: Denies polydipsia or polyuria Hematologic/Lymphatic Hematologic/Lymphatic: Denies easy bleeding or easy bruising Allergic/Immunologic Allergic/Immunologic ED: Denies urticaria EXAM Physical Exam Const Vital Signs: 02/24/22 14:59 02/24/22 15:03 02/24/22 16:05 Temperature 96.6 F L Temperature Source Temporal Pulse Rate 64 63 Respiratory Rate 16 18 Respiratory Effort Normal Non-Labored Respiratory Pattern Normal Blood Pressure 156/67 H 149/63 H Blood Pressure Mean 96 91 Pulse Ox 96 97 Oxygen Delivery Method Room Air Room Air Positive well nourished and well developed Constitutional Narrative: Patient looks a little tired but nontoxic. General Appearance ED: well developed and NAD HEENT Reports dry mucous membranes HEENT Narrative: Mildly dry mucous membrane. I seen no sign of trauma tenderness bruising or abrasions on her scalp or head. Mouth ED: Yes dry mucous membranes Mouth: dry mucous membranes Eyes General Eye ED: Negative for scleral icterus Neck no JVD General: Negative for tenderness Chest Wall palpation of chest normal Resp normal respiratory effort and clear to auscultation bilaterally Auscultation: Negative for rales, rhonchi or wheezes Cardio regular rate and regular rhythm GI normal to inspection, nondistended, normoactive bowel sounds, non-tender and non-distended Palpation: soft Narrative: Normal external genitalia. Cath specimen was obtained. Back/Spine no CVA tenderness Extremity Extremity Narrative: Minimal erythema to the lateral aspect of the right knee but no tenderness or pain with motion. Neuro Sensorium / Orientation: alert Psych mental status grossly normal Psych Narrative: Patient is a little bit slow to answer questions but she seems to be appropriate. Skin no rashes or lesions noted MDM MDM MDM Narrative Medical decision making narrative: Chest x-ray shows no acute process. CBC is overall normal. Electrolytes and liver function test are relatively normal other than mild elevation of glucose of 119. Urine shows no sign of infection. COVID is positive. This is likely what is causing her generalized weakness. We are trying to ambulate her but she really is too weak. Because she is so weak, I think she will need to come in the hospital. She is in assisted living not [facility]. Lab Data Attestation: I reviewed the patient's lab results. Labs: Laboratory Results - last 24 hr 02/24/22 02/24/22 02/24/22 15:50 15:50 15:55 WBC 6.8 RBC 4.20 Hgb 13.5 Hct 38.9 MCV 92.6 MCH 32.1 H MCHC 34.7 RDW Std Deviation 42.5 RDW Coeff of Kacy 12.5 Plt Count 209 MPV 9.7 Immature Gran % (Auto) 0.300 Neut % (Auto) 68.4 Lymph % (Auto) 14.1 L [place] % (Auto) 14.2 H Eos % (Auto) 2.3 Baso % (Auto) 0.7 Absolute Neuts (auto) 4.7 Absolute Lymphs (auto) 0.96 Nucleated RBC % 0 Sodium 138 Potassium 3.5 Chloride 105 Carbon Dioxide 27.0 Anion Gap 6 BUN 11 Creatinine 0.94 Estim Creat Clear Calc 34.29 Est GFR (MDRD) Af Amer 74 Est GFR (MDRD) Non-Af 61 BUN/Creatinine Ratio 11.7 Glucose 119 H Calcium 9.3 Total Bilirubin 0.60 AST 10 L ALT 20 Alkaline Phosphatase 72 Troponin I High Sens 8 Total Protein 7.2 Albumin 3.6 Globulin 3.6 Albumin/Globulin Ratio 1.0 Urine Color Yellow Urine Clarity Clear Urine pH 7.0 Ur Specific [place] 1.010 Urine Protein Negative Urine Glucose (UA) Normal Urine Ketones Negative Urine Occult Blood Negative Urine Nitrite Negative Urine Bilirubin Negative Urine Urobilinogen Normal Ur Leukocyte Esterase Negative Urine RBC 0 SEEN Urine WBC 0 SEEN Ur Squamous Epith Cells 0-5 SEEN Urine Bacteria 1+ Urine Mucus 0 SEEN Radiography Diagnostic Testing: Clinical Impression(s) from Imaging Studies Chest X-Ray 02/24/22 16:00 IMPRESSION: No acute disease. Electronically Signed: Jeramy Carlos MD at 16:21 EDT , Single view chest x-ray looked at by me and read by radiology shows no acute process. EKG Initial EKG: Comments: EKG done for generalized weakness read by me showed normal sinus rhythm. There were nonspecific ST and T wave changes. No ectopy. No acute ST elevation. HI interval, QRS duration and QTc are normal. This is similar to prior of 02/16/2022. But with nonspecific EKG changes and generalized weakness troponin was ordered. Discharge Plan Triage Chief Complaint: Weakness ED Provider: Girish Bedoya Dx/Rx/DC Orders Clinical Impression: COVID-19, Generalized weakness, Inability to walk Prescriptions: No Action losartan 100 MG tablet 100 mg PO QHS buspirone 15 MG tablet 15 mg PO TID paroxetine HCl 37.5 MG tablet extended release 24 hr 37.5 mg PO DAILY Rx Instructions: GIVE IN ADDITION TO 25MG DOSE multivitamin 1 EACH tablet 1 ea PO DAILY ascorbic acid (vitamin C) 500 MG tablet 500 mg PO DAILY atenolol 50 MG tablet 50 mg PO DAILY paroxetine HCl 25 MG tablet extended release 24 hr 25 mg PO DAILY Rx Instructions: GIVE IN ADDITION TO 37.5MG DOSE calcium carbonate-vitamin D3 1 EACH tablet 1 ea PO BID ipratropium-albuterol 3 ML solution for nebulization 3 ml INHALATION Q4HWA.RT 0RF venlafaxine [Effexor XR] 37.5 mg Capsule,Extended Release 24hr 37.5 mg PO DAILY loperamide [Imodium A-D] 2 mg Tablet 2 mg PO Q6H PRN (Reason: Diarrhea) triamcinolone acetonide 0.1 % Cream 1 applic TOPICAL DAILY pantoprazole 40 mg Tablet,Delayed Release (Dr/Ec) 40 mg PO DAILY folic acid 1 mg Tablet 1 mg PO DAILY memantine [Namenda] 10 mg Tablet 10 mg PO BID fluoride (sodium) [PreviDent 5000 Booster Plus] 1.1 % Paste cholecalciferol (vitamin D3) [Vitamin D3] 50 mcg (2,000 unit) Tablet 50 mcg PO DAILY acetaminophen 325 mg PO/SL PRN PRN (Reason: Pain) Primary Care Provider: [facility] Doctor,Out of Referrals: [facility] Doctor,Out of [Primary Care Provider] - Disposition Disposition: Acute Care Hospital [facility]
--- NOTE | 2022-02-24 16:00 | RAD_ITS ---
EXAM: XR CHEST, 1 VIEW CLINICAL INDICATION: cough TECHNIQUE: Frontal view of the chest. This report was created using [employer] report generation technology. COMPARISON: 02/16/2022 FINDINGS: LUNGS AND PLEURAL SPACES: Calcified granulomas of the upper lobes. No pneumothorax. No effusion. HEART: Unremarkable. Cardiac silhouette not enlarged. MEDIASTINUM: Central airways and mediastinal contour are unremarkable. BONES/JOINTS: Degenerative changes of the spine and acromioclavicular joints. SOFT TISSUES: Unremarkable. VASCULATURE: Atherosclerotic calcifications of the nonenlarged thoracic arch. RAD/Chest 1 View (Portable) IMPRESSION: No acute disease. Electronically Signed: Jeramy Carlos MD at 16:21 EDT ,
[2022-02-24 16:05] VITALS: BP 149/63; PULSE 63; RESP 18; O2SAT 97
[2022-02-24 16:07] LABS: Mucous, Urine 0 SEEN /hpf (<or=2+); Red Blood Cells-Urine 0 SEEN /hpf (0-5); White Blood Cells 0 SEEN /hpf (0-5)
[2022-02-24 16:08] LABS: Absolute Lymphocyte Count 0.96 X10^3/uL (0.83-4.51); Absolute Neutrophil Count 4.7 X10^3/uL (2.0-7.7); Basophil# 0.05 X10^3/uL; Basophil% 0.7 % (0-1); Eosinophil# 0.16 X10^3/uL; Eosinophils% 2.3 % (0-5); Hematocrit 38.9 % (37-47); Hemoglobin 13.5 g/dL (12.0-15.0); Lymphocyte # 0.96 X10^3/ul (0.83-4.51); Lymphocyte % 14.1 % (19-41); Mean Corp Hgb Conc 34.7 g/dL (32-36); Mean Corpuscular Hgb 32.1 pg (27.0-32.0); Mean Corpuscular Volume 92.6 fL (81-99); Mean Platelet Vol. 9.7 fl (6.2-12.0); Monocyte# 0.97 X10^3/uL; Monocyte% 14.2 % (0-10); NRBC Flagged by Analyzer 0 % (0-5); Neutrophil # 4.66 X10^3/uL (2.7-7.7); Neutrophil % 68.4 % (47-70); Platelet Count 209 K/mm3 (150-450); RBC Distribution Width CV 12.5 % (11.6-14.6); RBC Distribution Width SD 42.5 fl (35.1-43.9); White Blood Count 6.8 K/mm3 (4.4-11.0)
[2022-02-24 16:13] LABS: Color, Urine Yellow (Yellow); Glucose, Dipstick Normal (Normal); Ketone-Dipstick Negative (Negative); Leukocyte Esterase-Dipstick Negative /ul (Negative); Nitrite-Dipstick Negative (Negative); Occult Blood-Urine Negative /ul (Negative); Protein-Dipstick Negative (Negative); Urine Bilirubin Dipstick Negative (Negative); Urine Clarity Clear (Clear); Urine Urobilinogen Normal (Normal)
[2022-02-24 16:23] LABS: Bacteria 1+ /hpf (None Seen); Squamous Epithelial Cells - UA 0-5 SEEN /hpf (5-10)
[2022-02-24 16:30] LABS: AST(SGOT) 10 U/L (15-37); Alanine Aminotransfer ALT/SGPT 20 U/L (13-56); Albumin, Serum 3.6 g/dL (3.2-5.0); Alkaline Phosphatase 72 U/L (45-117); Anion Gap 6 (5-15); BUN 11 mg/dL (7-18); BUN/Creat Ratio 11.7 RATIO (10-20); Calcium,Total 9.3 mg/dL (8.5-10.1); Chloride 105 mmol/L (98-107); Creatinine, Serum 0.94 mg/dL (0.55-1.02); EST Glomerular Filtration Rate 61 mL/min (>60); Est Glom Filt Rate - Afr Amer 74 mL/min (>60); Estimated Creatinine Clearance 34.29 ml/min; Globulin 3.6 g/dL (2.2-4.2); Glucose 119 mg/dL (74-106); Potassium 3.5 mmol/L (3.5-5.1); Protein, Total 7.2 g/dL (6.4-8.2); Sodium Level 138 mmol/L (136-145); Troponin-I HS 8 pg/mL (3.0-54.0)
--- NOTE | 2022-02-24 16:59 | ED.RN ---
attempted to call Alexander Longo to inform of pt being admitted to hospital. no answer.
[2022-02-24 18:21] VITALS: BP 167/67; PULSE 59; RESP 12; TEMP 35.9; O2SAT 95
[2022-02-24 18:37] VITALS: BMI 33.3
--- NOTE | 2022-02-24 18:47 | PCM.HP.STD ---
HPI - General General Date of Admission: 02/24/22 HPI Narrative PELON ODELL, is a 81 F who presents to the hospital from the assisted living secondary to generalized weakness and inability to complete ADLs. She did have a fall the last 2 days in a row without any significant injuries. She does have dementia and is unable to tell me where she is or what year it is. She denies any recent illnesses, she is not requiring any oxygen she has no fevers or leukocytosis. In the ER urine was unremarkable but she did test positive for COVID antigen. She is completely asymptomatic at this time. I attempted to call Alexander Qing however there is no answer to get an idea as to how long she has been having any type of symptoms with weakness and/or if she had been having any cough that she could not relay to me. She did mention a cough but could not give me a timetable so not quite sure how accurate that is from her. [facility] Medical History Anxiety Dementia Depression GERD (gastroesophageal reflux disease) History of falling HTN (hypertension) Hypothyroid IBS (irritable bowel syndrome) Muscle weakness (generalized) Home Medications buspirone 15 mg tablet 15 mg PO TID ANXIETY 10/03/18 [History Last Taken Unknown] losartan 100 mg tablet 100 mg PO QHS HIGH CHOLESTEROL 10/03/18 [History Last Taken Unknown] paroxetine HCl 37.5 mg tablet,extended release 24 hr 37.5 mg PO DAILY DEPRESSION 10/03/18 [History Last Taken Unknown] ascorbic acid (vitamin C) 500 mg tablet 500 mg PO DAILY SUPPLEMENT 04/25/20 [History Last Taken Unknown] atenolol 50 mg tablet 50 mg PO DAILY BP 04/25/20 [History Last Taken Unknown] calcium carbonate 250 mg-vitamin D3 3.125 mcg (125 unit) tablet 1 ea PO BID SUPPLEMENT 04/25/20 [History Last Taken Unknown] multivitamin 1 ea PO DAILY SUPPLEMENT 04/25/20 [History Last Taken Unknown] paroxetine HCl 25 mg tablet,extended release 24 hr 25 mg PO DAILY DEPRESSION 04/25/20 [History Last Taken Unknown] ipratropium 0.5 mg-albuterol 3 mg (2.5 mg base)/3 mL nebulization soln 3 ml inhalation Q4HWA.RT 04/26/20 [Rx Last Taken Unknown] cholecalciferol (vitamin D3) 50 mcg (2,000 unit) tablet (Vitamin D3) 50 mcg PO DAILY 10/27/21 [History Last Taken Unknown] fluoride (sodium) 1.1 % dental paste (PreviDent 5000 Booster Plus) 10/27/21 [History Last Taken Unknown] folic acid 1 mg tablet 1 mg PO DAILY 10/27/21 [History Last Taken Unknown] loperamide 2 mg tablet (Imodium A-D) 2 mg PO Q6H PRN Diarrhea 10/27/21 [History Last Taken Unknown] memantine 10 mg tablet (Namenda) 10 mg PO BID 10/27/21 [History Last Taken Unknown] pantoprazole 40 mg tablet,delayed release 40 mg PO DAILY 10/27/21 [History Last Taken Unknown] triamcinolone acetonide 0.1 % topical cream 1 applic topical Q6H PRN Rash 10/27/21 [History Last Taken Unknown] venlafaxine 37.5 mg capsule,extended release 24 hr (Effexor XR) 37.5 mg PO DAILY 10/27/21 [History Last Taken Unknown] acetaminophen 325 mg capsule (Tylenol) 650 mg PO Q4H PRN Pain/fever 02/24/22 [History Last Taken Unknown] Allergy/AdvReac Type Severity Reaction Status Date / Time hydrochlorothiazide Allergy NEEDS Verified 02/24/22 15:01 FOLLOW-UP lisinopril Allergy NEEDS Verified 02/24/22 15:01 FOLLOW-UP Sulfa (Sulfonamide Allergy Unknown Verified 02/24/22 15:01 Antibiotics) Family History unable to obtain unable to obtain Surgical History unable to obtain unable to obtain Social History Smoking Status: Former smoker ROS Constitutional Constitutional: Reports weakness; Denies chills, fatigue, fever(s) or malaise Eyes Eyes: Denies blurry vision ENT HEENT: Denies headache(s) or nasal discharge Cardiovascular Cardiovascular: Denies chest pain, dyspnea on exertion or syncope Respiratory/Chest Respiratory/Chest: Reports cough; Denies shortness of breath at rest or shortness of breath with exertion Gastrointestinal Gastrointestinal: Denies constipation, diarrhea, nausea or vomiting Genitourinary Genitourinary: Denies dysuria Neurologic Neurologic: Denies focal weakness, numbness or tremor(s) Psychiatric Psychiatric: Denies anxiety or depression Vital Signs Vital Signs Vital Signs: 02/24/22 14:59 02/24/22 15:03 02/24/22 16:05 Temperature 96.6 F L Temperature Source Temporal Pulse Rate 64 63 Respiratory Rate 16 18 Respiratory Effort Normal Non-Labored Respiratory Pattern Normal Blood Pressure 156/67 H 149/63 H Blood Pressure Mean 96 91 Pulse Ox 96 97 Oxygen Delivery Method Room Air Room Air 02/24/22 18:21 Temperature 96.6 F L Temperature Source Temporal Pulse Rate 59 L Respiratory Rate 12 Respiratory Effort Respiratory Pattern Blood Pressure 167/67 H Blood Pressure Mean 100 Pulse Ox 95 Oxygen Delivery Method Room Air Weight Weight: 170 lb 6 oz Body Mass Index (BMI) 33.3 Physical Exam Narrative General: Alert, disoriented, Cooperative, No apparent distress HEENT: Atraumatic, PERRLA, EOMI, Normocephalic Oral: Dry mucosa Neck: Supple, No JVD Lungs: Clear to auscultation, Normal air movement, No rhonchi, No wheeze, No rales Cardiovascular: Regular rate, Regular Rhythm, Normal S1, Normal S2, No murmurs Abdomen: Soft, Non Tender, Non-Distended, No Hepato-splenomegaly Extremities: No edema, Capillary Refill Less than 3 Seconds Skin: No rashes, No breakdown Musculoskeletal: No Tenderness to Palpation of Joints or Extremities Neurological: Cranial nerves II-XII grossly intact, Motor Exam 5/5 strength throughout, Sensory exam intact to light touch and pain Psych/Mental Status: Normal Affect, Appropriate Results Lab / Micro Data Result Diagrams: 02/24/22 15:50 02/24/22 15:50 Labs: Laboratory Results - last 24 hr 02/24/22 15:50: WBC 6.8, RBC 4.20, Hgb 13.5, Hct 38.9, MCV 92.6, MCH 32.1 H, MCHC 34.7, RDW Std Deviation 42.5, RDW Coeff of Kacy 12.5, Plt Count 209, MPV 9.7, Immature Gran % (Auto) 0.300, Neut % (Auto) 68.4, Lymph % (Auto) 14.1 L, [place] % (Auto) 14.2 H, Eos % (Auto) 2.3, Baso % (Auto) 0.7, Absolute Neuts (auto) 4.7, Absolute Lymphs (auto) 0.96, Nucleated RBC % 0 02/24/22 15:50: Sodium 138, Potassium 3.5, Chloride 105, Carbon Dioxide 27.0, Anion Gap 6, BUN 11, Creatinine 0.94, Estim Creat Clear Calc 34.29, Est GFR (MDRD) Af Amer 74, Est GFR (MDRD) Non-Af 61, BUN/Creatinine Ratio 11.7, Glucose 119 H, Calcium 9.3, Total Bilirubin 0.60, AST 10 L, ALT 20, Alkaline Phosphatase 72, Troponin I High Sens 8, Total Protein 7.2, Albumin 3.6, Globulin 3.6, Albumin/Globulin Ratio 1.0 02/24/22 15:55: Urine Color Yellow, Urine Clarity Clear, Urine pH 7.0, Ur Specific [place] 1.010, Urine Protein Negative, Urine Glucose (UA) Normal, Urine Ketones Negative, Urine Occult Blood Negative, Urine Nitrite Negative, Urine Bilirubin Negative, Urine Urobilinogen Normal, Ur Leukocyte Esterase Negative, Urine RBC 0 SEEN, Urine WBC 0 SEEN, Ur Squamous Epith Cells 0-5 SEEN, Urine Bacteria 1+, Urine Mucus 0 SEEN Micro: Microbiology 02/24/22 15:55 Nasal Secretion SARS-CoV-2 & FLU Antigen (Rapid) - Final SARS-CoV-2 (COVID 19) Radiology Impression Chest X-Ray 02/24/22 16:00 IMPRESSION: No acute disease. Electronically Signed: Jeramy Carlos MD at 16:21 EDT Reading Location ID and State: [address] [place] [address] Tel , Service support , Assessment & Plan Assessment/Plan (1) COVID-19: (2) Generalized weakness: PLAN: Plan 1. Generalized weakness with an inability to complete ADLs due to COVID-19 ? She does have a slight cough but she is unable to give me a timetable as to when all this started ? We will have her be evaluated by PT/OT for possible skilled placement if necessary ? We will consult case management for discharge planning ? She is afebrile and not hypoxic therefore we will not put her on remdesivir or steroids for COVID 2. HTN ? Blood pressures are stable ? Continue with home pressure medications 3. Anxiety/depression/dementia ? Stable ? We will continue with her occasions DVT: Lovenox Charges/Coding Visit Charges OBSV E&M: 16198 Initial observation care L2
[2022-02-24 18:48] VITALS: BP 150/55; PULSE 63; RESP 18; TEMP 37.1; O2SAT 98
--- NOTE | 2022-02-24 19:35 | NURSING ---
Talked To Debra at [facility]. Lianet's cough started on ThursdayFeb 23.
[2022-02-24 20:24] VITALS: BP 171/82; PULSE 62; RESP 16; TEMP 36.6; O2SAT 96
[2022-02-24] MEDS: Memantine Hydrochloride 10 MG Tablet PO (22:28)
[2022-02-24] MEDS: busPIRone 15 MG TABLET PO (22:28)
[2022-02-24] MEDS: Losartan Potassium 100 MG Tablet PO (22:28)
[2022-02-25] VITALS (7 sets, daily range): BP systolic 132–169; BP diastolic 59–73; PULSE 55–70; RESP 16–18; TEMP 36.5–37.2; O2SAT 76–98
[2022-02-25] MEDS: Atenolol 50 MG Tablet PO (08:36)
[2022-02-25] MEDS: Pantoprazole Sodium 40 MG Tablet PO (08:36)
[2022-02-25] MEDS: Memantine Hydrochloride 10 MG Tablet PO ×2 (08:36→21:06)
[2022-02-25] MEDS: PARoxetine CR 12.5 MG Tablet 37.5 MG PO (08:37)
[2022-02-25] MEDS: busPIRone 15 MG TABLET PO ×3 (08:37→21:06)
[2022-02-25] MEDS: PARoxetine CR 12.5 MG Tablet 25 MG PO (08:37)
[2022-02-25] MEDS: Venlafaxine XR 37.5 MG Capsule PO (08:37)
--- NOTE | 2022-02-25 09:57 | PN.HOSP_ITS ---
Subjective Subjective Follow-up on debility/Acute COVID-19 infection/dementia: Patient seen and examined. Patient is alert oriented to self. She is hard of hearing. She is a two-person assist with the nurses. She was found to have ac sun'aq urinary tension with bladder scan showing 600. She was straight cathed. Objective Data Objective Data Vital Signs: Vital Signs Temp Pulse Resp BP Pulse Ox O2 Del Method 97.7 F L 62 18 151/63 H 94 Room Air 02/25/22 08:20 02/25/22 09:07 02/25/22 08:20 02/25/22 09:07 02/25/22 08:20 02/25/22 08:30 Oxygen Delivery Method Room Air Weight: 77.281 kg Body Mass Index (BMI) 33.3 Intake & Output: Intake and Output for Last 24 Hours 02/23/22 02/24/22 02/25/22 23:59 23:59 23:59 Output Total 650 / 650 Balance -650 / -650 Lab / Micro Data Result Diagrams: 02/24/22 15:50 02/24/22 15:50 Labs: Laboratory Results - last 24 hr 02/24/22 15:50: WBC 6.8, RBC 4.20, Hgb 13.5, Hct 38.9, MCV 92.6, MCH 32.1 H, MCHC 34.7, RDW Std Deviation 42.5, RDW Coeff of Kacy 12.5, Plt Count 209, MPV 9.7, Immature Gran % (Auto) 0.300, Neut % (Auto) 68.4, Lymph % (Auto) 14.1 L, [place] % (Auto) 14.2 H, Eos % (Auto) 2.3, Baso % (Auto) 0.7, Absolute Neuts (auto) 4.7, Absolute Lymphs (auto) 0.96, Nucleated RBC % 0 02/24/22 15:50: Sodium 138, Potassium 3.5, Chloride 105, Carbon Dioxide 27.0, Anion Gap 6, BUN 11, Creatinine 0.94, Estim Creat Clear Calc 34.29, Est GFR (MDRD) Af Amer 74, Est GFR (MDRD) Non-Af 61, BUN/Creatinine Ratio 11.7, Glucose 119 H, Calcium 9.3, Total Bilirubin 0.60, AST 10 L, ALT 20, Alkaline Phosphatase 72, Troponin I High Sens 8, Total Protein 7.2, Albumin 3.6, Globulin 3.6, Albumin/Globulin Ratio 1.0 02/24/22 15:55: Urine Color Yellow, Urine Clarity Clear, Urine pH 7.0, Ur Specific [place] 1.010, Urine Protein Negative, Urine Glucose (UA) Normal, Urine Ketones Negative, Urine Occult Blood Negative, Urine Nitrite Negative, Urine Bi lirubin Negative, Urine Urobilinogen Normal, Ur Leukocyte Esterase Negative, Urine RBC 0 SEEN, Urine WBC 0 SEEN, Ur Squamous Epith Cells 0-5 SEEN, Urine Bacteria 1+, Urine Mucus 0 SEEN Micro: Microbiology 02/24/22 15:55 Nasal Secretion SARS-CoV-2 & FLU Antigen (Rapid) - Final SARS-CoV-2 (COVID 19) Radiography Diagnostic Testing: Radiology Impression Chest X-Ray 02/24/22 16:00 IMPRESSION: No acute disease. Electronically Signed: Jeramy Carlos MD at 16:21 EDT Reading Location ID and State: [address] [place] [address] Tel , Service support , Physical Exam Narrative Physical exam: General: Alert, Oriented x1, oriented, Cooperative, No apparent distress HEENT: Atraumatic Oral: Moist Mucosa Neck: Supple Lungs: Diminished to auscultation Cardiovascular: HS I+II, regular, no murmurs Abdomen: Bowel Sounds Present, Soft, Non Tender Extremities: No edema Skin: No rashes, No breakdown Neurological: Grossly intact Psych/Mental Status: Appropriate Assessment & Plan Assessment/Plan (1) Hypertension: (2) COVID-19: (3) Generalized weakness: PLAN: Plan 1. Acute debility secondary to acute COVID-19 infection without hypoxia Patient is a two-person assist at the moment PT/OT to evaluate and treat 2. Acute COVID-19 infection without hypoxia Admitting chest x-ray showed no acute cardiopulmonary process We will continue to monitor, hold off on starting dexamethasone or remdesivir 3. Acute urine retention, status post straight cath x1 Will continue to monitor 4. Dementia, unclear underlying etiology, patient is oriented x1 Will continue with delirium prevention protocols Continue Namenda 5. Hypertension, fairly controlled, continue atenolol, losartan 6. Depression, continue on Paxil, Effexor 7. DVT PPx- Lovenox SC Charges/Coding Visit Charges Inpatient E&M: 53470 Subs Hosp L2
[2022-02-25 10:25] LABS: Bacteria 0 SEEN /hpf (None Seen); Mucous, Urine 0 SEEN /hpf (<or=2+); Red Blood Cells-Urine 0 SEEN /hpf (0-5); Squamous Epithelial Cells - UA 0 SEEN /hpf (5-10); White Blood Cells 0 SEEN /hpf (0-5)
[2022-02-25 10:40] LABS: Color, Urine Yellow (Yellow); Glucose, Dipstick Normal (Normal); Ketone-Dipstick Negative (Negative); Leukocyte Esterase-Dipstick Negative /ul (Negative); Nitrite-Dipstick Negative (Negative); Occult Blood-Urine Negative /ul (Negative); Protein-Dipstick Negative (Negative); Urine Bilirubin Dipstick Negative (Negative); Urine Clarity Sl. Cloudy (Clear); Urine Urobilinogen Normal (Normal)
--- NOTE | 2022-02-25 10:47 | NURSING ---
talked with Ynes, nurse at [facility]. Ynes also happens to be patient's daughter. Informed of Dr. Odell's request for medical records including last urinary tests done, last physician visit notes, and when covid symptoms be faxedto unit. aware per Ynes no obvious covid signs. states they did attempt to collect urine yesterday but were unsuccessful, and was having issues with edema in ble with one being worse than the other. Ynes states will fax over requested information.
--- NOTE | 2022-02-25 10:48 | CASEMGMT ---
Discussed with therapy pt eval today. Reported that pt would benefit from inpatient skilled therapy. Updated SW. [place] from [place].
[2022-02-25] MEDS: Enoxaparin 40 MG/0.4 ML Syringe SC (11:15)
--- NOTE | 2022-02-25 12:06 | CASEMGMT ---
Social Work SW notified by RN that pt needs SNF. SW spoke to pt son, Dat, who is HCPOA. SW also spoke to pt daughter, Karine. Pt's children discussed SNF options with SW. SW offered to send electronic list of SNFs but son declined and asked SW to tell options over phone. SW explained with covid diagnosis options were limited. Son voiced understanding. SW provided available options of SNFs accepting covid pts at this time. Family wants [facility] since pt is from [place]. SW discussed [facility] has strict policies for covid and may not accept but referral will be sent. If [facility] is not accepting family wants [facility] in [place]. SW updated Discharge Supervisor Bit And Shank Department Minda Valero of pt/family choice. Minda to send referral. PLAN: [facility], pending acceptance CLAUDIA Deluca
--- NOTE | 2022-02-25 12:08 | CASEMGMT ---
Discharge Marine Gear Keeper This magazine writer sent referral to [facility]. Will follow up. Jay BOND Plow Shaker
--- NOTE | 2022-02-25 13:09 | CASEMGMT ---
Social Work SW called Trista at [facility]. Left message inquiring about acceptance of Covid pts. Soha called back and stated [facility] can now take covid pt's on case by case basis due to updated CDC guidelines. Trista asked this SW to send referral for pt and discussed it is good chance pt will be accepted at [facility] due to living status at [facility] in connection with [facility] senior living. SW sent referral to [facility] via [employer]. PLAN: [facility], pending acceptance CLAUDIA Deluca
--- NOTE | 2022-02-25 13:17 | CASEMGMT ---
Discharge Oil Sales And Service Rep This underwriter canceled referrals with [facility]. Jay BOND Rayon Tester
--- NOTE | 2022-02-25 13:43 | CASEMGMT ---
Discharge Cupola Mechanic This customs entry writer sent a referral to [facility]. Patient has been accepted at [facility]. Jay BOND Bone Char Operator
--- NOTE | 2022-02-25 14:05 | CASEMGMT ---
Social work SW notified pt that pt has been accepted at [facility]. plans to discharge pt tomorrow 02/26. SW called pt ZACKOA, son Dat. Left message with information of [facility] acceptance and the plan to discharge tomorrow. Left contact information on VM should pt son have questions. PLAN: [facility], when medically ready. CLAUDIA Deluca
--- NOTE | 2022-02-25 15:40 | CASEMGMT ---
RN LD made tc to discuss AMAYA form with patient son Dat De Guzman at [phone]. Explained AMAYA form to pt son, he verbalized understanding. Verified by second witness. Placed original in patient chart and copy to patient.
[2022-02-25] MEDS: Losartan Potassium 100 MG Tablet PO (21:06)
[2022-02-26 02:20] VITALS: BP 149/67; PULSE 64; RESP 14; TEMP 36.9; O2SAT 92
[2022-02-26] MEDS: busPIRone 15 MG TABLET PO (06:28)
[2022-02-26] MEDS: Enoxaparin 40 MG/0.4 ML Syringe SC (06:28)
[2022-02-26 07:06] LABS: Absolute Lymphocyte Count 1.22 X10^3/uL (0.83-4.51); Absolute Neutrophil Count 3.5 X10^3/uL (2.0-7.7); Basophil# 0.04 X10^3/uL; Basophil% 0.7 % (0-1); Eosinophil# 0.26 X10^3/uL; Eosinophils% 4.6 % (0-5); Hematocrit 39.1 % (37-47); Hemoglobin 13.2 g/dL (12.0-15.0); Lymphocyte # 1.22 X10^3/ul (0.83-4.51); Lymphocyte % 21.4 % (19-41); Mean Corp Hgb Conc 33.8 g/dL (32-36); Mean Corpuscular Hgb 31.5 pg (27.0-32.0); Mean Corpuscular Volume 93.3 fL (81-99); Mean Platelet Vol. 9.9 fl (6.2-12.0); Monocyte# 0.69 X10^3/uL; Monocyte% 12.1 % (0-10); NRBC Flagged by Analyzer 0 % (0-5); Neutrophil # 3.46 X10^3/uL (2.7-7.7); Neutrophil % 60.7 % (47-70); Platelet Count 203 K/mm3 (150-450); RBC Distribution Width CV 12.8 % (11.6-14.6); RBC Distribution Width SD 44.2 fl (35.1-43.9); Red Blood Count 4.19 M/mm3 (4.2-5.4); White Blood Count 5.7 K/mm3 (4.4-11.0)
[2022-02-26 07:44] LABS: ALB/GLOB Ratio 0.9 RATIO (0.9-2.4); AST(SGOT) 13 U/L (15-37); Alanine Aminotransfer ALT/SGPT 17 U/L (13-56); Albumin, Serum 3.1 g/dL (3.2-5.0); Alkaline Phosphatase 63 U/L (45-117); Anion Gap 6 (5-15); BUN 17 mg/dL (7-18); BUN/Creat Ratio 18.5 RATIO (10-20); Chloride 104 mmol/L (98-107); Creatinine, Serum 0.92 mg/dL (0.55-1.02); EST Glomerular Filtration Rate 62 mL/min (>60); Est Glom Filt Rate - Afr Amer 75 mL/min (>60); Estimated Creatinine Clearance 35.03 ml/min; Globulin 3.5 g/dL (2.2-4.2); Glucose 120 mg/dL (74-106); Potassium 3.9 mmol/L (3.5-5.1); Protein, Total 6.6 g/dL (6.4-8.2); Sodium Level 136 mmol/L (136-145)
--- NOTE | 2022-02-26 07:44 | PCM.TXEXTCAR ---
Diet Diet Order/Speech Therapy: 02/25/22 14:32 Diet: Regular - General Is pt able to select menu?: Yes Routine Orders/Code Status Suppository Type: Dulcolax 10mg Suppository Frequency: Daily PRN Routine Lab Work: CBC (within 3 days) and - (CMP within 3 days) Therapies Weight Bearing: Weight bearing as tolerated Physical Therapy: Eval and Treat Occupational Therapy: Eval and Treat Problem/Diagnosis (1) Hypertension: Status: Chronic Code(s): I10 - Essential (primary) hypertension (2) COVID-19: Status: Acute Code(s): U07.1 - COVID-19 (3) Generalized weakness: Status: Acute Code(s): R53.1 - Weakness Plan 1. Acute debility secondary to acute COVID-19 infection without hypoxia 2. Acute COVID-19 infection without hypoxia 3. Acute urine retention,resolved 4. Dementia, unclear underlying etiology 5. Hypertension 6. Depression Allergies/Procedures Done in Hospital Allergies hydrochlorothiazide Allergy (Verified 02/24/22 15:01) NEEDS FOLLOW-UP lisinopril Allergy (Verified 02/24/22 15:01) NEEDS FOLLOW-UP Sulfa (Sulfonamide Antibiotics) Allergy (Verified 02/24/22 15:01) Unknown Procedures: None Type of Care/Length of Stay Estimated LOS: Convalescent Care Less Than 30 days Type of Care Needed: Skilled Rehab Potential: Fair Prognosis: Fair Additional Orders/Day of Discharge Day of Discharge: 02/26/22 Dietary and Speech Recommendations Dietitian Recommendations/Changes: Continue liberalized regular diet as PO adequacy established. Offer ONS as needed if intake inadequate at meals. Discharge Plan Admission Admit Date/Time: 02/24/22 19:03 Primary Reason for Your Visit: Debility/Acute COVID-19 infection without hypoxia Attending Provider: Ignacia Odell Primary Care Provider: [facility] Doctor,Out of Consulting Providers: Anupam Kim Discharge Orders/Prescriptions Prescriptions: Continued losartan 100 MG tablet 100 mg PO QHS buspirone 15 MG tablet 15 mg PO TID paroxetine HCl 37.5 MG tablet extended release 24 hr 37.5 mg PO DAILY Rx Instructions: GIVE IN ADDITION TO 25MG DOSE multivitamin 1 EACH tablet 1 ea PO DAILY ascorbic acid (vitamin C) 500 MG tablet 500 mg PO DAILY atenolol 50 MG tablet 50 mg PO DAILY paroxetine HCl 25 MG tablet extended release 24 hr 25 mg PO DAILY Rx Instructions: GIVE IN ADDITION TO 37.5MG DOSE calcium carbonate-vitamin D3 1 EACH tablet 1 ea PO BID ipratropium-albuterol 3 ML solution for nebulization 3 ml INHALATION Q4HWA.RT 0RF venlafaxine [Effexor XR] 37.5 mg Capsule,Extended Release 24hr 37.5 mg PO DAILY loperamide [Imodium A-D] 2 mg Tablet 2 mg PO Q6H PRN (Reason: Diarrhea) triamcinolone acetonide 0.1 % Cream 1 applic TOPICAL Q6H PRN (Reason: Rash) pantoprazole 40 mg Tablet,Delayed Release (Dr/Ec) 40 mg PO DAILY folic acid 1 mg Tablet 1 mg PO DAILY memantine [Namenda] 10 mg Tablet 10 mg PO BID fluoride (sodium) [PreviDent 5000 Booster Plus] 1.1 % Paste cholecalciferol (vitamin D3) [Vitamin D3] 50 mcg (2,000 unit) Tablet 50 mcg PO DAILY acetaminophen [Tylenol] 325 mg Capsule 650 mg PO Q4H PRN (Reason: Pain/fever) Referrals / Follow Up: [facility] Doctor,Out of [Primary Care Provider] - In 1 Week Disposition Disposition (needs filled in before D/C Order can be placed): Snf Facility
--- NOTE | 2022-02-26 07:48 | PCM.DC.SUM ---
Providers Date of Admission: 02/24/22 Date of Discharge: 02/26/22 Primary Care Physician: Out of [facility] Doctor Reason For Visit: WEAKNESS AND COVID Diagnosis Discharge Diagnosis (1) Hypertension: Status: Chronic Code(s): I10 - Essential (primary) hypertension (2) COVID-19: Status: Acute Code(s): U07.1 - COVID-19 (3) Generalized weakness: Status: Acute Code(s): R53.1 - Weakness Plan 1. Acute debility secondary to acute COVID-19 infection without hypoxia 2. Acute COVID-19 infection without hypoxia 3. Acute urine retention,resolved 4. Dementia, unclear underlying etiology 5. Hypertension 6. Depression Medications at Discharge Home Medications buspirone 15 mg tablet 15 mg PO TID ANXIETY 10/03/18 losartan 100 mg tablet 100 mg PO QHS HIGH CHOLESTEROL 10/03/18 paroxetine HCl 37.5 mg tablet,extended release 24 hr 37.5 mg PO DAILY DEPRESSION 10/03/18 ascorbic acid (vitamin C) 500 mg tablet 500 mg PO DAILY SUPPLEMENT 04/25/20 atenolol 50 mg tablet 50 mg PO DAILY BP 04/25/20 calcium carbonate 250 mg-vitamin D3 3.125 mcg (125 unit) tablet 1 ea PO BID SUPPLEMENT 04/25/20 multivitamin 1 ea PO DAILY SUPPLEMENT 04/25/20 paroxetine HCl 25 mg tablet,extended release 24 hr 25 mg PO DAILY DEPRESSION 04/25/20 ipratropium 0.5 mg-albuterol 3 mg (2.5 mg base)/3 mL nebulization soln 3 ml inhalation Q4HWA.RT 04/26/20 cholecalciferol (vitamin D3) 50 mcg (2,000 unit) tablet (Vitamin D3) 50 mcg PO DAILY 10/27/21 fluoride (sodium) 1.1 % dental paste (PreviDent 5000 Booster Plus) 10/27/21 folic acid 1 mg tablet 1 mg PO DAILY 10/27/21 loperamide 2 mg tablet (Imodium A-D) 2 mg PO Q6H PRN Diarrhea 10/27/21 memantine 10 mg tablet (Namenda) 10 mg PO BID 10/27/21 pantoprazole 40 mg tablet,delayed release 40 mg PO DAILY 10/27/21 triamcinolone acetonide 0.1 % topical cream 1 applic topical Q6H PRN Rash 10/27/21 venlafaxine 37.5 mg capsule,extended release 24 hr (Effexor XR) 37.5 mg PO DAILY 10/27/21 acetaminophen 325 mg capsule (Tylenol) 650 mg PO Q4H PRN Pain/fever 02/24/22 tamsulosin 0.4 mg capsule (Flomax) 0.4 mg PO DAILY 30 days #30 caps 02/26/22 Hospital Course Operations None Procedures None Summary of Care Provided Minutes Spent on Discharge: 35 Hospital Course: 81-year-old female with past medical history of dementia, hard of hearing, comes in with progressive weakness. Patient is resident in assisted living facility and typically can ambulate and take care of her basic ADLs. She however was feeling very weak and unable to get up and go for her meals. This has been ongoing for about 2 or 3 days. Patient did have a history of fall a day prior to admission where she hit her knee but did not hit her head. In the emergency room, her vitals were stable. Her rapid COVID-19 test was positive. Patient could not be ambulated in the emergency room. She was admitted to the [facility] floor, PT and OT were consulted to evaluate and treat. Social work was consulted. Patient was a two-person assist in the hospital. She was discharged to long term facility. A day prior to discharge, patient was found to be in acute urinary retention requiring straight catheterization. She subsequently was able to void. Patient on the day of discharge had mild urinary retention. She was started on Flomax. She was asked to follow-up with Dr. Lopez within 1 week. An appointment was made for her. Patient did not require any use of oxygen throughout her stay. She was not managed on oral steroids or IV remdesivir. Physical Exam Narrative Physical exam: General: Alert, Oriented x1, oriented, Cooperative, No apparent distress HEENT: Atraumatic Oral: Moist Mucosa Neck: Supple Lungs: Diminished to auscultation Cardiovascular: HS I+II, regular, no murmurs Abdomen: Bowel Sounds Present, Soft, Non Tender Extremities: No edema Skin: No rashes, No breakdown Neurological: Grossly intact Psych/Mental Status: Appropriate Weight / BMI Weight Weight: 77.3 kg Body Mass Index (BMI) 33.3 ABG / Lab / Microbiology Data Result Diagrams: 02/26/22 06:55 02/26/22 06:55 Laboratory: Laboratory Results - last 24 hr 02/25/22 10:08: Urine Color Yellow, Urine Clarity Sl. Cloudy, Urine pH 7.0, Ur Specific [place] 1.010, Urine Protein Negative, Urine Glucose (UA) Normal, Urine Ketones Negative, Urine Occult Blood Negative, Urine Nitrite Negative, Urine Bilirubin Negative, Urine Urobilinogen Normal, Ur Leukocyte Esterase Negative, Urine RBC 0 SEEN, Urine WBC 0 SEEN, Ur Squamous Epith Cells 0 SEEN, Urine Bacteria 0 SEEN, Urine Mucus 0 SEEN 02/26/22 06:55: WBC 5.7, RBC 4.19 L, Hgb 13.2, Hct 39.1, MCV 93.3, MCH 31.5, MCHC 33.8, RDW Std Deviation 44.2 H, RDW Coeff of Kacy 12.8, Plt Count 203, MPV 9.9, Immature Gran % (Auto) 0.500, Neut % (Auto) 60.7, Lymph % (Auto) 21.4, [place] % (Auto) 12.1 H, Eos % (Auto) 4.6, Baso % (Auto) 0.7, Absolute Neuts (auto) 3.5, Absolute Lymphs (auto) 1.22, Nucleated RBC % 0 02/26/22 06:55: Sodium 136, Potassium 3.9, Chloride 104, Carbon Dioxide 26.0, Anion Gap 6, BUN 17, Creatinine 0.92, Estim Creat Clear Calc 35.03, Est GFR (MDRD) Af Amer 75, Est GFR (MDRD) Non-Af 62, BUN/Creatinine Ratio 18.5, Glucose 120 H, Calcium 9.0, Total Bilirubin 0.50, AST 13 L, ALT 17, Alkaline Phosphatase 63, Total Protein 6.6, Albumin 3.1 L, Globulin 3.5, Albumin/Globulin Ratio 0.9 Microbiology: Microbiology 02/24/22 15:55 Urine Catheter - Catheter Urine Culture - Preliminary Culture exhibits no growth. 02/24/22 15:55 Nasal Secretion SARS-CoV-2 & FLU Antigen (Rapid) - Final SARS-CoV-2 (COVID 19) D/C Instructions Discharge Diet: No restrictions Meaningful Use Info Meaningful Use Diagnoses (Choose all that apply): None applicable Discharge Plan Admission Admit Date/Time: 02/24/22 19:03 Primary Reason for Your Visit: Debility/Acute COVID-19 infection without hypoxia Attending Provider: Ignacia Odell Consulting Providers: Anupam Kim Discharge Orders/Prescriptions Prescriptions: New tamsulosin [Flomax] 0.4 mg capsule 0.4 mg PO DAILY 30 Days Qty: 30 0RF Continued losartan 100 MG tablet 100 mg PO QHS buspirone 15 MG tablet 15 mg PO TID paroxetine HCl 37.5 MG tablet extended release 24 hr 37.5 mg PO DAILY Rx Instructions: GIVE IN ADDITION TO 25MG DOSE multivitamin 1 EACH tablet 1 ea PO DAILY ascorbic acid (vitamin C) 500 MG tablet 500 mg PO DAILY atenolol 50 MG tablet 50 mg PO DAILY paroxetine HCl 25 MG tablet extended release 24 hr 25 mg PO DAILY Rx Instructions: GIVE IN ADDITION TO 37.5MG DOSE calcium carbonate-vitamin D3 1 EACH tablet 1 ea PO BID ipratropium-albuterol 3 ML solution for nebulization 3 ml INHALATION Q4HWA.RT 0RF venlafaxine [Effexor XR] 37.5 mg Capsule,Extended Release 24hr 37.5 mg PO DAILY loperamide [Imodium A-D] 2 mg Tablet 2 mg PO Q6H PRN (Reason: Diarrhea) triamcinolone acetonide 0.1 % Cream 1 applic TOPICAL Q6H PRN (Reason: Rash) pantoprazole 40 mg Tablet,Delayed Release (Dr/Ec) 40 mg PO DAILY folic acid 1 mg Tablet 1 mg PO DAILY memantine [Namenda] 10 mg Tablet 10 mg PO BID fluoride (sodium) [PreviDent 5000 Booster Plus] 1.1 % Paste cholecalciferol (vitamin D3) [Vitamin D3] 50 mcg (2,000 unit) Tablet 50 mcg PO DAILY acetaminophen [Tylenol] 325 mg Capsule 650 mg PO Q4H PRN (Reason: Pain/fever) Referrals / Follow Up: Karishma Lopez MD [Med Staff - Active Staff] - 03/12/22 9:40 am (within 1-2 weeks ) [facility] Doctor,Out of [Non-Staff] - In 1 Week Disposition Disposition (needs filled in before D/C Order can be placed): Group Home Facility Charges/Coding Visit Charges Inpatient E&M: 39236 Disch Hosp
[2022-02-26 08:31] VITALS: BP 150/60; PULSE 64; RESP 18; TEMP 36.9; O2SAT 92
[2022-02-26] MEDS: Pantoprazole Sodium 40 MG Tablet PO (09:59)
[2022-02-26] MEDS: Venlafaxine XR 37.5 MG Capsule PO (10:00)
[2022-02-26] MEDS: Memantine Hydrochloride 10 MG Tablet PO (10:00)
[2022-02-26] MEDS: Atenolol 50 MG Tablet PO (10:00)
[2022-02-26] MEDS: PARoxetine CR 12.5 MG Tablet 25 MG PO (10:01)
[2022-02-26] MEDS: PARoxetine CR 12.5 MG Tablet 37.5 MG PO (10:01)
--- NOTE | 2022-02-26 10:40 | NURSING ---
pt up to side of bed from lying position to use bsc. spo2 remains 94% on ra. when pt stood with walker o2 dropped to 84% on ra for 20sec. once active activity ceased o2 back up to 92% within 30seconds. unable to void when up. small loose bm. back to chair and bladder scanned for only 440. will monitor. pt instructed to drink more fluids.
--- NOTE | 2022-02-26 11:32 | CASEMGMT ---
Social Work SW notified pt and pt family of discharge to [facility] today. JANNET completed 7000 convalescent form in [employer]. Set up wheelchair transportation through [facility] for 12:30 pm. JANNET faxed all discharge orders to [facility] via [employer] and notified of discharge time. SW notified pt nurse of transport time. SW made copies of discharge orders and placed on pt chart. Sent original orders in envelope with pt upon discharge. Disposition: [facility], skilled, convalescent, level of care CLAUDIA Deluca
[2022-02-26] MEDS: Tamsulosin HCl 0.4 MG Capsule PO (11:49)
--- NOTE | 2022-02-26 14:01 | NURSING ---
1230-report called for ecf with no questions voiced. belongings list completed and transfer form sent with pt with belongings packed.
== END 2022-02-26 12:40 | disposition skilled nursing facility (03) ==
LOC: ED 16:44 → MS3 18:01
PROVIDERS: Admitting Provider Family Medicine; Emergency Provider Emergency Medicine; Visit Provider Internal Medicine
DX: U07.1 COVID-19 (principal); F03.90 Unspecified dementia, unspecified severity, without behavioral disturbance, psychotic disturbance, mood disturbance, and anxiety; I10 Essential (primary) hypertension; Z87.891 Personal history of nicotine dependence; H91.90 Unspecified hearing loss, unspecified ear; R26.2 Difficulty in walking, not elsewhere classified; K21.9 Gastro-esophageal reflux disease without esophagitis; F32.A Depression, unspecified; F41.9 Anxiety disorder, unspecified; Z79.899 Other long term (current) drug therapy; R33.9 Retention of urine, unspecified
CPT/HCPCS: 36415; 71045; 80053; 81001; 84484; 85025; 87077; 87086; 87088; 87186; 87428; 93005; 96372; 97162; 97166; 99218; 99285; 99406; A4216; G0378

== ENCOUNTER → 2022-05-01 | Outpatient (REF) | payer MEDICARE, BC, SELFPAY ==
[2022-05-01 09:30] LABS: Absolute Lymphocyte Count 1.83 X10^3/uL (0.83-4.51); Absolute Neutrophil Count 3.7 X10^3/uL (2.0-7.7); Basophil# 0.06 X10^3/uL; Basophil% 0.9 % (0-1); Eosinophil# 0.23 X10^3/uL; Eosinophils% 3.6 % (0-5); Hematocrit 41.7 % (37-47); Hemoglobin 13.6 g/dL (12.0-15.0); Lymphocyte # 1.83 X10^3/ul (0.83-4.51); Lymphocyte % 28.8 % (19-41); Mean Corp Hgb Conc 32.6 g/dL (32-36); Mean Corpuscular Hgb 31.2 pg (27.0-32.0); Mean Corpuscular Volume 95.6 fL (81-99); Mean Platelet Vol. 10.1 fl (6.2-12.0); Monocyte# 0.51 X10^3/uL; NRBC Flagged by Analyzer 0 % (0-5); Neutrophil # 3.68 X10^3/uL (2.7-7.7); Neutrophil % 58.1 % (47-70); Platelet Count 249 K/mm3 (150-450); RBC Distribution Width CV 13.2 % (11.6-14.6); RBC Distribution Width SD 46.7 fl (35.1-43.9); Red Blood Count 4.36 M/mm3 (4.2-5.4); White Blood Count 6.4 K/mm3 (4.4-11.0)
[2022-05-01 09:36] LABS: Anion Gap 3 (5-15); BUN 14 mg/dL (7-18); BUN/Creat Ratio 17.6 RATIO (10-20); Calcium,Total 9.1 mg/dL (8.5-10.1); Chloride 106 mmol/L (98-107); EST Glomerular Filtration Rate 74 mL/min (>60); Est Glom Filt Rate - Afr Amer 89 mL/min (>60); Glucose 99 mg/dL (74-106); Potassium 4.3 mmol/L (3.5-5.1); Sodium Level 139 mmol/L (136-145)
[2022-05-01 09:50] LABS: Vitamin D,25 Hydroxy 62.1 ng/mL
== END ==
LOC: OLS.SW 05:00
PROVIDERS: Visit Provider Internal Medicine
DX: I10 Essential (primary) hypertension (principal)
CPT/HCPCS: 36415; 80048; 82306; 85025

== ENCOUNTER → 2022-05-08 | Outpatient (REF) | payer MEDICARE, BC, SELFPAY ==
[2022-05-08 09:56] LABS: Absolute Lymphocyte Count 1.73 X10^3/uL (0.83-4.51); Absolute Neutrophil Count 2.4 X10^3/uL (2.0-7.7); Basophil# 0.05 X10^3/uL; Eosinophil# 0.27 X10^3/uL; Eosinophils% 5.5 % (0-5); Hematocrit 43.7 % (37-47); Hemoglobin 14.2 g/dL (12.0-15.0); Lymphocyte # 1.73 X10^3/ul (0.83-4.51); Lymphocyte % 35.1 % (19-41); Mean Corp Hgb Conc 32.5 g/dL (32-36); Mean Corpuscular Hgb 30.9 pg (27.0-32.0); Mean Corpuscular Volume 95.2 fL (81-99); Mean Platelet Vol. 10.4 fl (6.2-12.0); Monocyte# 0.42 X10^3/uL; Monocyte% 8.5 % (0-10); NRBC Flagged by Analyzer 0 % (0-5); Neutrophil # 2.44 X10^3/uL (2.7-7.7); Neutrophil % 49.5 % (47-70); Platelet Count 251 K/mm3 (150-450); RBC Distribution Width CV 13.2 % (11.6-14.6); RBC Distribution Width SD 46.7 fl (35.1-43.9); Red Blood Count 4.59 M/mm3 (4.2-5.4); White Blood Count 4.9 K/mm3 (4.4-11.0)
[2022-05-08 10:06] LABS: Anion Gap 7 (5-15); BUN 13 mg/dL (7-18); BUN/Creat Ratio 14.5 RATIO (10-20); Calcium,Total 9.2 mg/dL (8.5-10.1); Chloride 108 mmol/L (98-107); Creatinine, Serum 0.89 mg/dL (0.55-1.02); EST Glomerular Filtration Rate 64 mL/min (>60); Est Glom Filt Rate - Afr Amer 78 mL/min (>60); Glucose 111 mg/dL (74-106); Potassium 3.9 mmol/L (3.5-5.1); Sodium Level 140 mmol/L (136-145)
[2022-05-08 10:08] LABS: Vitamin D,25 Hydroxy 65.1 ng/mL
== END ==
LOC: OLS.SW 05:00
PROVIDERS: Visit Provider Internal Medicine
DX: E55.9 Vitamin D deficiency, unspecified (principal); R68.89 Other general symptoms and signs; Z13.228 Encounter for screening for other metabolic disorders
CPT/HCPCS: 36415; 80048; 82306; 85025

== ENCOUNTER → 2022-05-15 | Outpatient (REF) | payer MEDICARE, BC, SELFPAY ==
[2022-05-15 10:11] LABS: Absolute Neutrophil Count 3.7 X10^3/uL (2.0-7.7); Basophil# 0.07 X10^3/uL; Basophil% 1.3 % (0-1); Eosinophil# 0.21 X10^3/uL; Eosinophils% 3.8 % (0-5); Hematocrit 38.8 % (37-47); Hemoglobin 12.9 g/dL (12.0-15.0); Mean Corp Hgb Conc 33.2 g/dL (32-36); Mean Corpuscular Hgb 31.1 pg (27.0-32.0); Mean Corpuscular Volume 93.5 fL (81-99); Mean Platelet Vol. 10.3 fl (6.2-12.0); Monocyte# 0.56 X10^3/uL; Monocyte% 10.1 % (0-10); NRBC Flagged by Analyzer 0 % (0-5); Neutrophil # 3.67 X10^3/uL (2.7-7.7); Neutrophil % 66.1 % (47-70); Platelet Count 221 K/mm3 (150-450); RBC Distribution Width CV 13.1 % (11.6-14.6); RBC Distribution Width SD 44.5 fl (35.1-43.9); Red Blood Count 4.15 M/mm3 (4.2-5.4); White Blood Count 5.6 K/mm3 (4.4-11.0)
[2022-05-15 11:03] LABS: Anion Gap 7 (5-15); BUN 17 mg/dL (7-18); BUN/Creat Ratio 20.3 RATIO (10-20); Calcium,Total 8.9 mg/dL (8.5-10.1); Chloride 105 mmol/L (98-107); Creatinine, Serum 0.84 mg/dL (0.55-1.02); EST Glomerular Filtration Rate 70 mL/min (>60); Est Glom Filt Rate - Afr Amer 84 mL/min (>60); Glucose 108 mg/dL (74-106); Potassium 3.9 mmol/L (3.5-5.1); Sodium Level 138 mmol/L (136-145)
== END ==
LOC: OLS.SW 05:00
PROVIDERS: Visit Provider Internal Medicine
DX: I10 Essential (primary) hypertension (principal); E55.9 Vitamin D deficiency, unspecified
CPT/HCPCS: 36415; 80048; 82306; 85025

== ENCOUNTER → 2022-05-22 | Outpatient (REF) | payer MEDICARE, BC, SELFPAY ==
[2022-05-22 08:49] LABS: Absolute Neutrophil Count 3.8 X10^3/uL (2.0-7.7); Basophil# 0.08 X10^3/uL; Basophil% 1.2 % (0-1); Eosinophil# 0.33 X10^3/uL; Eosinophils% 5.1 % (0-5); Hematocrit 42.1 % (37-47); Hemoglobin 13.8 g/dL (12.0-15.0); Mean Corp Hgb Conc 32.8 g/dL (32-36); Mean Corpuscular Hgb 30.9 pg (27.0-32.0); Mean Corpuscular Volume 94.4 fL (81-99); Mean Platelet Vol. 10.3 fl (6.2-12.0); Monocyte# 0.58 X10^3/uL; NRBC Flagged by Analyzer 0 % (0-5); Neutrophil # 3.79 X10^3/uL (2.7-7.7); Neutrophil % 59.2 % (47-70); Platelet Count 267 K/mm3 (150-450); RBC Distribution Width CV 13.2 % (11.6-14.6); RBC Distribution Width SD 45.3 fl (35.1-43.9); Red Blood Count 4.46 M/mm3 (4.2-5.4); White Blood Count 6.4 K/mm3 (4.4-11.0)
[2022-05-22 09:00] LABS: Anion Gap 7 (5-15); BUN 16 mg/dL (7-18); BUN/Creat Ratio 17.9 RATIO (10-20); Calcium,Total 9.3 mg/dL (8.5-10.1); Chloride 104 mmol/L (98-107); Creatinine, Serum 0.89 mg/dL (0.55-1.02); EST Glomerular Filtration Rate 64 mL/min (>60); Est Glom Filt Rate - Afr Amer 78 mL/min (>60); Glucose 98 mg/dL (74-106); Potassium 3.9 mmol/L (3.5-5.1); Sodium Level 138 mmol/L (136-145)
== END ==
LOC: OLS.SW 05:00
PROVIDERS: Visit Provider Internal Medicine
DX: E03.9 Hypothyroidism, unspecified (principal); E55.9 Vitamin D deficiency, unspecified
CPT/HCPCS: 36415; 80048; 82306; 85025

== ENCOUNTER → 2022-05-29 | Outpatient (REF) | payer MEDICARE, BC, SELFPAY ==
[2022-05-29 09:33] LABS: Absolute Lymphocyte Count 1.91 X10^3/uL (0.83-4.51); Absolute Neutrophil Count 3.3 X10^3/uL (2.0-7.7); Basophil# 0.08 X10^3/uL; Basophil% 1.3 % (0-1); Eosinophil# 0.27 X10^3/uL; Eosinophils% 4.4 % (0-5); Hematocrit 40.6 % (37-47); Hemoglobin 13.8 g/dL (12.0-15.0); Lymphocyte # 1.91 X10^3/ul (0.83-4.51); Lymphocyte % 31.4 % (19-41); Mean Corpuscular Hgb 31.6 pg (27.0-32.0); Mean Corpuscular Volume 92.9 fL (81-99); Monocyte% 8.2 % (0-10); NRBC Flagged by Analyzer 0 % (0-5); Neutrophil % 54.4 % (47-70); Platelet Count 256 K/mm3 (150-450); RBC Distribution Width CV 12.8 % (11.6-14.6); Red Blood Count 4.37 M/mm3 (4.2-5.4); White Blood Count 6.1 K/mm3 (4.4-11.0)
[2022-05-29 10:00] LABS: Vitamin D,25 Hydroxy 63.5 ng/mL
[2022-05-29 10:02] LABS: Anion Gap 8 (5-15); BUN 17 mg/dL (7-18); Calcium,Total 9.1 mg/dL (8.5-10.1); Chloride 104 mmol/L (98-107); Creatinine, Serum 0.85 mg/dL (0.55-1.02); EST Glomerular Filtration Rate 68 mL/min (>60); Est Glom Filt Rate - Afr Amer 83 mL/min (>60); Glucose 99 mg/dL (74-106); Sodium Level 139 mmol/L (136-145)
== END ==
LOC: OLS.SW 05:00
PROVIDERS: Visit Provider Internal Medicine
DX: I10 Essential (primary) hypertension (principal); E55.9 Vitamin D deficiency, unspecified; R68.89 Other general symptoms and signs; Z13.228 Encounter for screening for other metabolic disorders
CPT/HCPCS: 36415; 80048; 82306; 85025

== ENCOUNTER → 2022-06-05 | Outpatient (REF) | payer MEDICARE, BC, SELFPAY ==
[2022-06-05 09:03] LABS: Absolute Lymphocyte Count 1.78 X10^3/uL (0.83-4.51); Absolute Neutrophil Count 3.9 X10^3/uL (2.0-7.7); Basophil# 0.06 X10^3/uL; Basophil% 0.9 % (0-1); Eosinophil# 0.33 X10^3/uL; Eosinophils% 4.9 % (0-5); Hematocrit 40.9 % (37-47); Hemoglobin 13.5 g/dL (12.0-15.0); Lymphocyte # 1.78 X10^3/ul (0.83-4.51); Lymphocyte % 26.5 % (19-41); Mean Platelet Vol. 10.3 fl (6.2-12.0); Monocyte# 0.57 X10^3/uL; Monocyte% 8.5 % (0-10); NRBC Flagged by Analyzer 0 % (0-5); Neutrophil # 3.94 X10^3/uL (2.7-7.7); Neutrophil % 58.8 % (47-70); Platelet Count 221 K/mm3 (150-450); RBC Distribution Width CV 13.2 % (11.6-14.6); RBC Distribution Width SD 45.1 fl (35.1-43.9); Red Blood Count 4.35 M/mm3 (4.2-5.4); White Blood Count 6.7 K/mm3 (4.4-11.0)
[2022-06-05 09:28] LABS: Anion Gap 9 (5-15); BUN 20 mg/dL (7-18); Calcium,Total 9.3 mg/dL (8.5-10.1); Chloride 106 mmol/L (98-107); EST Glomerular Filtration Rate 73 mL/min (>60); Est Glom Filt Rate - Afr Amer 89 mL/min (>60); Glucose 86 mg/dL (74-106); Potassium 4.2 mmol/L (3.5-5.1); Sodium Level 140 mmol/L (136-145)
== END ==
LOC: OLS.SW 05:00
PROVIDERS: Visit Provider Internal Medicine
DX: I10 Essential (primary) hypertension (principal); E55.9 Vitamin D deficiency, unspecified
CPT/HCPCS: 36415; 80048; 82306; 85025

== ENCOUNTER → 2022-09-17 | Outpatient (REF) | payer MEDICARE, BC, SELFPAY ==
[2022-09-17 08:28] LABS: Bacteria 0 SEEN /hpf (None Seen); Mucous, Urine 0 SEEN /hpf (<or=2+); Red Blood Cells-Urine 0 SEEN /hpf (0-5); Squamous Epithelial Cells - UA 0 SEEN /hpf (5-10)
[2022-09-17 09:21] LABS: Absolute Lymphocyte Count 1.37 X10^3/uL (0.83-4.51); Absolute Neutrophil Count 5.9 X10^3/uL (2.0-7.7); Basophil# 0.05 X10^3/uL; Basophil% 0.6 % (0-1); Eosinophil# 0.26 X10^3/uL; Eosinophils% 3.1 % (0-5); Hematocrit 45.7 % (37-47); Hemoglobin 14.8 g/dL (12.0-15.0); Lymphocyte # 1.37 X10^3/ul (0.83-4.51); Lymphocyte % 16.5 % (19-41); Mean Corp Hgb Conc 32.4 g/dL (32-36); Mean Corpuscular Hgb 30.8 pg (27.0-32.0); Mean Corpuscular Volume 95.2 fL (81-99); Mean Platelet Vol. 10.9 fl (6.2-12.0); Monocyte# 0.65 X10^3/uL; Monocyte% 7.8 % (0-10); NRBC Flagged by Analyzer 0 % (0-5); Neutrophil # 5.94 X10^3/uL (2.7-7.7); Neutrophil % 71.5 % (47-70); Platelet Count 257 K/mm3 (150-450); RBC Distribution Width CV 12.7 % (11.6-14.6); RBC Distribution Width SD 45.2 fl (35.1-43.9); White Blood Count 8.3 K/mm3 (4.4-11.0)
[2022-09-17 09:22] LABS: Color, Urine Yellow (Yellow); Glucose, Dipstick Normal (Normal); Ketone-Dipstick Negative (Negative); Leukocyte Esterase-Dipstick 25 /ul (Negative); Nitrite-Dipstick Negative (Negative); Occult Blood-Urine Negative /ul (Negative); Protein-Dipstick 15 mg/dl (Negative); Urine Bilirubin Dipstick Negative (Negative); Urine Clarity Clear (Clear); Urine Urobilinogen 1 mg/dl (Normal)
[2022-09-17 09:29] LABS: Prothrombin Time (Protime)PT. 13.2 SECONDS (11.7-14.9)
[2022-09-17 09:34] LABS: Anion Gap 5 (5-15); BUN 17 mg/dL (7-18); BUN/Creat Ratio 19.5 RATIO (10-20); Calcium,Total 9.8 mg/dL (8.5-10.1); Chloride 103 mmol/L (98-107); Creatinine, Serum 0.87 mg/dL (0.55-1.02); EST Glomerular Filtration Rate 66 mL/min (>60); Est Glom Filt Rate - Afr Amer 80 mL/min (>60); Glucose 95 mg/dL (74-106); Potassium 4.2 mmol/L (3.5-5.1); Sodium Level 137 mmol/L (136-145)
[2022-09-17 09:47] LABS: White Blood Cells 0-5 SEEN /hpf (0-5)
[2022-09-17 09:48] LABS: Calcium Oxalate Crystals Ur 1+ /hpf (<or=2+)
== END ==
LOC: OLS.SW 05:00
PROVIDERS: Visit Provider Internal Medicine
DX: I10 Essential (primary) hypertension (principal); R41.82 Altered mental status, unspecified; Z79.01 Long term (current) use of anticoagulants
CPT/HCPCS: 36415; 80048; 81001; 85025; 85610; 87086; 87088

== ENCOUNTER → 2022-10-09 | Outpatient (CLI) | payer MEDICARE, BC, SELFPAY | END | disposition home or self-care (01) | PROVIDERS: PCP Internal Medicine; Referring Provider Internal Medicine; Visit Provider Internal Medicine | DX: R00.1 Bradycardia, unspecified (principal) | CPT/HCPCS: 93005; 93225; 93226 ==

== ENCOUNTER → 2022-10-16 | Outpatient (CLI) | payer MEDICARE, BC, SELFPAY ==
--- NOTE | 2022-10-16 09:43 | ECHOD_ITS ---
Reason For Study: BRADYCARDIA Procedure This was a 2D Doppler, Color Flow transthoracic echocardiogram. Exam performed in department. Left Ventricle Normal LV size. The estimated ejection fraction is 65 %. No evidence for diastolic dysfunction. No regional wall motion abnormalities noted. Right Ventricle Normal RV size. Normal systolic function. Atria Normal left atrium. Normal right atrium. No doppler evidence for ASD. Mitral Valve There is moderate mitral annular calcification. There is no mitral valve stenosis. No mitral valve insufficiency. Tricuspid Valve There is no tricuspid stenosis. Unable to estimate RV systolic pressure due to insufficient tricuspid regurgitant envelope. Trivial tricuspid valve insufficiency. Aortic Valve Trisinus/trileaflet aortic valve. There is no aortic stenosis. Mild (1+) aortic valve insufficiency. Pulmonic Valve There is no pulmonic valvular stenosis. No pulmonic valve insufficiency. Great Vessels Normal aortic root. Pericardium/Pleural No pericardial effusion. MMode/2D Measurements & Calculations LVIDd: 4.4 cm IVSd: 1.1 cm Ao root diam: 3.1 cm LVIDs: 3.1 cm LVPWd: 1.1 cm RVDd: 3.2 cm FS: 29.4 % LAV(MOD-bp): 32.3 ml LVAd ap4: 20.0 cm2 SV(MOD-sp4): 28.2 ml LAV(MOD-bp) Indexed: 19.0 ml/m2 LVLd ap4: 6.7 cm LAV(MOD-sp2): 29.4 ml EDV(MOD-sp4): 49.4 ml LAV(MOD-sp4): 33.0 ml EDV(sp4-el): 50.2 ml LVAs ap4: 11.9 cm2 LVLs ap4: 5.8 cm ESV(MOD-sp4): 21.2 ml ESV(sp4-el): 20.9 ml EF(MOD-sp4): 57.1 % EF(sp4-el): 58.4 % SV(sp4-el): 29.4 ml LA A4 area: 14.4 cm2 LA dimension(2D): 3.1 cm RA A4 area: 13.0 cm2 Time Measurements MV dec time: 0.25 sec Doppler Measurements & Calculations MV E max cole: 64.3 cm/sec Lat Peak E' Cole: 6.9 cm/sec Med Peak E' Cole: 6.0 cm/sec MV A max cole: 103.4 cm/sec E/E' lat: 9.4 E/E' med: 10.8 MV E/A: 0.62 MV P1/2t max cole: 63.7 cm/sec Ao V2 max: 103.8 cm/sec AI max cole: 421.5 cm/sec Ao max P.3 mmHg AI max P.1 mmHg AI dec slope: 228.1 cm/sec2 AI P1/2t: 541.2 msec LV V1 max: 87.2 cm/sec PA V2 max: 68.7 cm/sec LV V1 max P.0 mmHg ECHO/Echo Complete Interpretation Summary The estimated ejection fraction is 65 %. No evidence for diastolic dysfunction. Mild (1+) aortic valve insufficiency. Ordering Physician: Krystle Cohen Referring Physician: Krystle Cohen Performed By: Sophie Nash RDCS
== END | disposition home or self-care (01) ==
LOC: CVS 09:42
PROVIDERS: PCP Internal Medicine; Referring Provider Internal Medicine; Visit Provider Internal Medicine
DX: R94.31 Abnormal electrocardiogram [ECG] [EKG] (principal)
CPT/HCPCS: 93306

== ENCOUNTER → 2022-10-22 | Outpatient (REF) | payer MEDICARE, BC, SELFPAY ==
[2022-10-22 09:07] LABS: Absolute Lymphocyte Count 1.07 X10^3/uL (0.83-4.51); Basophil# 0.05 X10^3/uL; Basophil% 0.6 % (0-1); Eosinophil# 0.18 X10^3/uL; Eosinophils% 2.3 % (0-5); Hematocrit 41.5 % (37-47); Hemoglobin 13.4 g/dL (12.0-15.0); Lymphocyte # 1.07 X10^3/ul (0.83-4.51); Lymphocyte % 13.4 % (19-41); Mean Corp Hgb Conc 32.3 g/dL (32-36); Mean Corpuscular Hgb 30.5 pg (27.0-32.0); Mean Corpuscular Volume 94.3 fL (81-99); Mean Platelet Vol. 10.1 fl (6.2-12.0); Monocyte# 0.58 X10^3/uL; Monocyte% 7.3 % (0-10); NRBC Flagged by Analyzer 0 % (0-5); Neutrophil # 6.02 X10^3/uL (2.7-7.7); Neutrophil % 75.5 % (47-70); Platelet Count 296 K/mm3 (150-450); RBC Distribution Width CV 13.1 % (11.6-14.6); RBC Distribution Width SD 45.3 fl (35.1-43.9)
[2022-10-22 09:19] LABS: ALB/GLOB Ratio 0.9 RATIO (0.9-2.4); AST(SGOT) 15 U/L (15-37); Alanine Aminotransfer ALT/SGPT 21 U/L (13-56); Albumin, Serum 3.3 g/dL (3.2-5.0); Alkaline Phosphatase 99 U/L (45-117); Anion Gap 5 (5-15); BUN 12 mg/dL (7-18); BUN/Creat Ratio 17.2 RATIO (10-20); Calcium,Total 9.3 mg/dL (8.5-10.1); Chloride 109 mmol/L (98-107); EST Glomerular Filtration Rate 86 mL/min (>60); Est Glom Filt Rate - Afr Amer 104 mL/min (>60); Globulin 3.6 g/dL (2.2-4.2); Glucose 109 mg/dL (74-106); Protein, Total 6.9 g/dL (6.4-8.2); Sodium Level 141 mmol/L (136-145)
== END ==
LOC: OLS.SW 05:00
PROVIDERS: PCP Internal Medicine; Visit Provider Internal Medicine
DX: J96.91 Respiratory failure, unspecified with hypoxia (principal)
CPT/HCPCS: 36415; 80053; 85025

== ENCOUNTER → 2022-12-11 | Outpatient (REF) | payer MEDICARE, BC, SELFPAY ==
[2022-12-11 09:09] LABS: Absolute Lymphocyte Count 1.28 X10^3/uL (0.83-4.51); Absolute Neutrophil Count 3.3 X10^3/uL (2.0-7.7); Basophil# 0.08 X10^3/uL; Basophil% 1.5 % (0-1); Eosinophil# 0.21 X10^3/uL; Eosinophils% 3.9 % (0-5); Hematocrit 40.5 % (37-47); Hemoglobin 13.2 g/dL (12.0-15.0); Lymphocyte # 1.28 X10^3/ul (0.83-4.51); Lymphocyte % 23.7 % (19-41); Mean Corp Hgb Conc 32.6 g/dL (32-36); Mean Corpuscular Hgb 30.8 pg (27.0-32.0); Mean Corpuscular Volume 94.4 fL (81-99); Mean Platelet Vol. 10.4 fl (6.2-12.0); Monocyte% 9.2 % (0-10); NRBC Flagged by Analyzer 0 % (0-5); Neutrophil # 3.31 X10^3/uL (2.7-7.7); Neutrophil % 61.1 % (47-70); Platelet Count 264 K/mm3 (150-450); RBC Distribution Width CV 13.7 % (11.6-14.6); RBC Distribution Width SD 46.9 fl (35.1-43.9); Red Blood Count 4.29 M/mm3 (4.2-5.4); White Blood Count 5.4 K/mm3 (4.4-11.0)
[2022-12-11 09:23] LABS: Anion Gap 6 (5-15); BUN 16 mg/dL (7-18); BUN/Creat Ratio 21.4 RATIO (10-20); Chloride 106 mmol/L (98-107); Creatinine, Serum 0.75 mg/dL (0.55-1.02); EST Glomerular Filtration Rate 79 mL/min (>60); Est Glom Filt Rate - Afr Amer 96 mL/min (>60); Glucose 102 mg/dL (74-106); Sodium Level 138 mmol/L (136-145)
== END ==
LOC: OLS.SW 05:00
PROVIDERS: PCP Internal Medicine; Visit Provider Internal Medicine
DX: R60.9 Edema, unspecified (principal)
CPT/HCPCS: 36415; 80048; 85025

== ENCOUNTER → 2022-12-15 | Outpatient (REF) | payer MEDICARE, BC, SELFPAY ==
[2022-12-15 11:17] LABS: BNP,B-Type NATRIURETIC PEPTIDE 23.9 pg/mL (0-100)
== END ==
LOC: OLS.SW 05:00
PROVIDERS: PCP Internal Medicine; Visit Provider Internal Medicine
DX: I50.9 Heart failure, unspecified (principal)
CPT/HCPCS: 36415; 83880

== ENCOUNTER → 2022-12-18 | Outpatient (REF) | payer MEDICARE, BC, SELFPAY ==
[2022-12-18 09:01] LABS: Absolute Lymphocyte Count 1.38 X10^3/uL (0.83-4.51); Absolute Neutrophil Count 3.6 X10^3/uL (2.0-7.7); Basophil# 0.08 X10^3/uL; Basophil% 1.4 % (0-1); Eosinophil# 0.24 X10^3/uL; Eosinophils% 4.2 % (0-5); Lymphocyte # 1.38 X10^3/ul (0.83-4.51); Mean Corp Hgb Conc 32.6 g/dL (32-36); Mean Corpuscular Hgb 30.5 pg (27.0-32.0); Mean Corpuscular Volume 93.7 fL (81-99); Mean Platelet Vol. 10.1 fl (6.2-12.0); Monocyte# 0.46 X10^3/uL; NRBC Flagged by Analyzer 0 % (0-5); Neutrophil # 3.56 X10^3/uL (2.7-7.7); Neutrophil % 62.1 % (47-70); Platelet Count 275 K/mm3 (150-450); RBC Distribution Width CV 13.2 % (11.6-14.6); RBC Distribution Width SD 45.5 fl (35.1-43.9); Red Blood Count 4.59 M/mm3 (4.2-5.4); White Blood Count 5.7 K/mm3 (4.4-11.0)
[2022-12-18 09:34] LABS: Anion Gap 7 (5-15); BUN 13 mg/dL (7-18); BUN/Creat Ratio 15.7 RATIO (10-20); Calcium,Total 9.2 mg/dL (8.5-10.1); Chloride 106 mmol/L (98-107); Creatinine, Serum 0.83 mg/dL (0.55-1.02); EST Glomerular Filtration Rate 70 mL/min (>60); Est Glom Filt Rate - Afr Amer 85 mL/min (>60); Glucose 106 mg/dL (74-106); Potassium 3.7 mmol/L (3.5-5.1); Sodium Level 141 mmol/L (136-145)
== END ==
LOC: OLS.SW 05:00
PROVIDERS: PCP Internal Medicine; Visit Provider Internal Medicine
DX: R60.9 Edema, unspecified (principal); R53.83 Other fatigue
CPT/HCPCS: 36415; 80048; 85025

== ENCOUNTER → 2022-12-25 | Outpatient (REF) | payer MEDICARE, BC, SELFPAY ==
[2022-12-25 09:36] LABS: Absolute Lymphocyte Count 1.13 X10^3/uL (0.83-4.51); Absolute Neutrophil Count 3.5 X10^3/uL (2.0-7.7); Basophil# 0.05 X10^3/uL; Basophil% 0.9 % (0-1); Eosinophil# 0.17 X10^3/uL; Eosinophils% 3.2 % (0-5); Hematocrit 43.1 % (37-47); Hemoglobin 14.2 g/dL (12.0-15.0); Lymphocyte # 1.13 X10^3/ul (0.83-4.51); Lymphocyte % 21.4 % (19-41); Mean Corp Hgb Conc 32.9 g/dL (32-36); Mean Corpuscular Volume 94.1 fL (81-99); Mean Platelet Vol. 10.4 fl (6.2-12.0); Monocyte# 0.38 X10^3/uL; Monocyte% 7.2 % (0-10); NRBC Flagged by Analyzer 0 % (0-5); Neutrophil # 3.52 X10^3/uL (2.7-7.7); Neutrophil % 66.9 % (47-70); Platelet Count 279 K/mm3 (150-450); RBC Distribution Width CV 13.3 % (11.6-14.6); RBC Distribution Width SD 45.8 fl (35.1-43.9); Red Blood Count 4.58 M/mm3 (4.2-5.4); White Blood Count 5.3 K/mm3 (4.4-11.0)
[2022-12-25 09:53] LABS: Anion Gap 5 (5-15); BUN 14 mg/dL (7-18); Calcium,Total 9.2 mg/dL (8.5-10.1); Chloride 105 mmol/L (98-107); EST Glomerular Filtration Rate 85 mL/min (>60); Est Glom Filt Rate - Afr Amer 103 mL/min (>60); Glucose 106 mg/dL (74-106); Potassium 4.1 mmol/L (3.5-5.1); Sodium Level 138 mmol/L (136-145)
== END ==
LOC: OLS.SW 05:00
PROVIDERS: PCP Internal Medicine; Referring Provider Internal Medicine; Visit Provider Internal Medicine
DX: F03.90 Unspecified dementia, unspecified severity, without behavioral disturbance, psychotic disturbance, mood disturbance, and anxiety (principal); I10 Essential (primary) hypertension
CPT/HCPCS: 36415; 80048; 85025

== ENCOUNTER 2023-04-25 22:07 | Emergency (ER) | payer MEDICARE, BC, SELFPAY ==
[2023-04-25 22:09] VITALS: BP 139/87; PULSE 107; RESP 15; TEMP 36.7; O2SAT 94; BMI 33.0
[2023-04-25 22:16] VITALS: O2SAT 94
--- NOTE | 2023-04-25 23:01 | CT_ITS ---
STUDY: CT BRAIN WITHOUT CONTRAST REASON FOR EXAM: Female, 82 years old. head trauma RADIATION DOSAGE (If Supplied By Facility): CTDIvol = ( 44.99 ) mGy, DLP = ( 1330.78 ) mGycm TECHNIQUE: Transaxial CT imaging of the brain was performed without administration of intravenous contrast material. Individualized dose optimization techniques were used for this CT. COMPARISON: 02/16/2022 FINDINGS: Normal soft tissue structures. Normal calvarium. There is moderate cerebral atrophy with widening of the extra-axial spaces and ventricular dilatation. There are areas of decreased attenuation within the white matter tracts of the supratentorial brain, consistent with microvascular disease changes. Normal basal ganglia and thalami. Normal brainstem. Normal cerebellum. There is no intracranial hemorrhage. There are no findings of an acute ischemic infarction. Air-fluid level in the left sphenoid sinus consistent with acute sinusitis. CT/Brain/Head without Contrast IMPRESSION: 1. Chronic involutional changes of the brain. 2. Acute left sphenoid sinusitis. Electronically Signed: Edward Dick MD at 23:31 EST ,
--- NOTE | 2023-04-25 23:01 | CT_ITS ---
STUDY: CT CERVICAL SPINE WITHOUT CONTRAST REASON FOR EXAM: Female, 82 years old. neck trauma RADIATION DOSAGE (If Supplied By Facility): CTDIvol = ( 27.35 ) mGy, DLP = ( 1330.78 ) mGycm TECHNIQUE: High resolution transaxial imaging was performed without contrast material. Sagittal and coronal images were reconstructed. Individualized dose optimization techniques were used for this CT. COMPARISON: None FINDINGS: Normal craniovertebral junction. Normal anterior atlantoaxial articulation. Normal odontoid process. There is straightening of the normal cervical lordosis. Normal vertebral bodies and posterior osseous elements. C2-3: Normal endplates. Normal disc height and morphology. Normal central canal and intervertebral neuroforamina. C3-4: Normal endplates. Normal disc height and morphology. Normal central canal and intervertebral neuroforamina. C4-5: Normal endplates. Normal disc height and morphology. Normal central canal and intervertebral neuroforamina. C5-6: Mild broad disc osteophyte complex and bilateral uncovertebral hypertrophy produces mild spinal stenosis and mild bilateral neural foraminal stenosis. C6-7: Mild broad disc osteophyte complex and bilateral uncovertebral hypertrophy produces mild spinal stenosis and mild bilateral neural foraminal stenosis. C7-T1: 2 mm of anterolisthesis of C7 on T1 with no spinal stenosis or neural foraminal stenosis. Normal visualized soft tissue structures. CT/Spine Cervical without Contras IMPRESSION: 1. No acute fracture or subluxation. 2. Straightening of the normal lordotic curvature possibly from muscular spasm. Electronically Signed: Edward Dick MD at 23:54 EST ,
--- NOTE | 2023-04-25 23:02 | RAD_ITS ---
STUDY: X-RAY - LEFT HUMERUS REASON FOR EXAM: Female, 82 years old. Injury/Pain TECHNIQUE: 2 view(s) of the humerus. COMPARISON: None. FINDINGS: Normal visualized humerus. There is no demonstrated fracture or osseous destructive process. There is no demonstrated soft tissue abnormality. RAD/Humerus min 2 Views IMPRESSION: Normal x-ray examination of the humerus. Electronically Signed: Edward Dick MD at 23:56 EST ,
--- NOTE | 2023-04-25 23:02 | RAD_ITS ---
STUDY: X-RAY - LEFT SHOULDER REASON FOR EXAM: Female, 82 years old. Injury/Pain TECHNIQUE: 2 view(s) of the shoulder. COMPARISON: None. FINDINGS: Normal glenohumeral articulation. Normal acromioclavicular joint. Normal acromion. Acute superiorly displaced oblique fracture of the distal left clavicle just proximal to the clavicular joint. Normal humeral head and visualized proximal humerus. The soft tissue structures are unremarkable. Normal visualized pulmonary apex. RAD/Shoulder min 2 Views IMPRESSION: Acute superiorly displaced oblique fracture of the distal left clavicle just proximal to the acromioclavicular joint. Electronically Signed: Edward Dick MD at 23:56 EST ,
--- NOTE | 2023-04-25 23:18 | ED.VIS.FALL ---
HPI HPI - Fall History of Present Illness Chief Complaint: Fall Informant: patient Narrative Narrative: Patient is an 82-year-old female presenting from [facility] for evaluation of left shoulder pain after fall. Patient states she was at the dinner table tonight when she was trying to get up to go talk to someone and lost her balance and fell. She states she landed on her head initially but then landed on her left shoulder. States she never lost any consciousness. She denies any headache or neck pain but does complain of significant left shoulder pain. This is what brought her in. Not take anything for pain prior to arrival. Denies any associated numbness or tingling. Denies any pain in her legs or any other injuries. No other complaints at this time. She is not on any blood thinners. [facility] Medical History Anxiety Dementia Depression GERD (gastroesophageal reflux disease) History of falling HTN (hypertension) Hypothyroid IBS (irritable bowel syndrome) Muscle weakness (generalized) Home Medications buspirone 15 mg tablet 15 mg PO TID ANXIETY 10/03/18 [History Last Taken Unknown] losartan 100 mg tablet 100 mg PO QHS HIGH CHOLESTEROL 10/03/18 [History Last Taken Unknown] paroxetine HCl 37.5 mg tablet,extended release 24 hr 37.5 mg PO DAILY DEPRESSION 10/03/18 [History Last Taken Unknown] ascorbic acid (vitamin C) 500 mg tablet 500 mg PO DAILY SUPPLEMENT 04/25/20 [History Last Taken Unknown] atenolol 50 mg tablet 50 mg PO DAILY BP 04/25/20 [History Last Taken Unknown] calcium carbonate 250 mg-vitamin D3 3.125 mcg (125 unit) tablet 1 ea PO BID SUPPLEMENT 04/25/20 [History Last Taken Unknown] multivitamin 1 ea PO DAILY SUPPLEMENT 04/25/20 [History Last Taken Unknown] paroxetine HCl 25 mg tablet,extended release 24 hr 25 mg PO DAILY DEPRESSION 04/25/20 [History Last Taken Unknown] ipratropium 0.5 mg-albuterol 3 mg (2.5 mg base)/3 mL nebulization soln 3 ml inhalation Q4HWA.RT 04/26/20 [Rx Last Taken Unknown] cholecalciferol (vitamin D3) 50 mcg (2,000 unit) tablet (Vitamin D3) 50 mcg PO DAILY 10/27/21 [History Last Taken Unknown] fluoride (sodium) 1.1 % dental paste (PreviDent 5000 Booster Plus) 10/27/21 [History Last Taken Unknown] folic acid 1 mg tablet 1 mg PO DAILY 10/27/21 [History Last Taken Unknown] loperamide 2 mg tablet (Imodium A-D) 2 mg PO Q6H PRN Diarrhea 10/27/21 [History Last Taken Unknown] memantine 10 mg tablet (Namenda) 10 mg PO BID 10/27/21 [History Last Taken Unknown] pantoprazole 40 mg tablet,delayed release 40 mg PO DAILY 10/27/21 [History Last Taken Unknown] triamcinolone acetonide 0.1 % topical cream 1 applic topical Q6H PRN Rash 10/27/21 [History Last Taken Unknown] venlafaxine 37.5 mg capsule,extended release 24 hr (Effexor XR) 37.5 mg PO DAILY 10/27/21 [History Last Taken Unknown] acetaminophen 325 mg capsule (Tylenol) 650 mg PO Q4H PRN Pain/fever 02/24/22 [History Last Taken Unknown] tamsulosin 0.4 mg capsule (Flomax) 0.4 mg PO DAILY 30 days #30 caps 02/26/22 [Rx Last Taken Unknown] hydrocodone-acetaminophen 5-325mg 5mg-325mg 1 tab PO Q6H PRN PRN Pain 3 days #12 TABLETS 04/26/23 [Rx Last Taken Unknown] Allergy/AdvReac Type Severity Reaction Status Date / Time hydrochlorothiazide Allergy NEEDS Verified 04/25/23 22:23 FOLLOW-UP lisinopril Allergy NEEDS Verified 04/25/23 22:23 FOLLOW-UP Sulfa (Sulfonamide Allergy Unknown Verified 04/25/23 22:23 Antibiotics) Social History Smoking Status: Former smoker ROS ROS ED Constitutional Constitutional ED: Denies chills or fever(s) Eyes Eyes: Denies change in vision ENT ENT ED: Denies rhinorrhea or sore throat Cardiovascular Cardiovascular: Denies chest pain Respiratory/Chest Respiratory/Chest: Denies cough Gastrointestinal Gastrointestinal: Denies abdominal pain or nausea Musculoskeletal Musculoskeletal: Reports other Details: Left shoulder pain ; Denies neck pain Integumentary Denies Abrasions or rash Neurologic Neurologic: Denies headache(s), paresthesias or weakness Psychiatric Psychiatric: Denies anxiety Hematologic/Lymphatic Hematologic/Lymphatic: Denies easy bleeding or easy bruising EXAM Physical Exam Const Vital Signs: 04/25/23 22:09 04/25/23 22:16 04/26/23 02:27 Temperature 98.1 F Temperature Source Temporal Pulse Rate 107 H 107 H Respiratory Rate 15 15 Respiratory Effort Normal Non-Labored Respiratory Depth Normal Respiratory Pattern Normal Blood Pressure 139/87 H 139/87 H Blood Pressure Mean 104 104 Pulse Ox 94 94 94 Oxygen Delivery Method Room Air Room Air 04/26/23 02:08 04/26/23 04:00 Temperature Temperature Source Pulse Rate Respiratory Rate 15 16 Respiratory Effort Respiratory Depth Respiratory Pattern Blood Pressure Blood Pressure Mean Pulse Ox Oxygen Delivery Method Room Air Positive well nourished and well developed General Appearance ED: well developed and NAD HEENT Reports normocephalic and TM's normal bilaterally HEENT Narrative: No hemotympanum. No signs of facial trauma. No septal hematoma. No rhinorrhea or epistaxis appreciated. Went to [facility] for atraumatic Eyes PERRL and EOMs intact bilaterally Neck full ROM and supple Neck Narrative: No midline tenderness, no step-off sign General: Negative for tenderness Chest Wall inspection of chest normal and palpation of chest normal Chest Narrative: Chest wall crepitus or tenderness palpation appreciated. Does have tenderness palpation over the lateral aspect of the left clavicle with some associated swelling Resp normal respiratory effort and clear to auscultation bilaterally Effort and Inspection: Negative for pain with movement Cardio regular rate, regular rhythm and no murmurs Cardio Narrative: 2+ bilateral radial pulses GI non-tender and non-distended Extremity Extremity Narrative: No deformity of the extremities. Decreased range of motion of the left shoulder secondary to pain. Mild tenderness palpation of the anterior aspect and posterior aspect of the left shoulder. No obvious deformity. No pain with palpation or range of motion of the elbow or distal arm. Pelvis is stable. No pain with range of motion of the bilateral lower extremities. Neuro oriented x3, moves all extremities, no focal motor deficits and no sensory deficits noted Sensorium / Orientation: alert Motor Exam: Negative for general weakness Psych mental status grossly normal and thought process normal Skin Skin Narrative: Small area of ecchymosis to the left anterior/posterior shoulder MDM MDM MDM Narrative Medical decision making narrative: Evaluate for mechanical fall. She did her head but does not have any signs of head trauma. Because of her age will obtain CT of the brain as well as C-spine due to mechanism of injury. She does have significant pain in her shoulder. Given [place]. Has some soft tissue swelling over the lateral left clavicle concern for clavicle fracture versus proximal humerus fracture and less likely shoulder dislocation. Will obtain imaging of that area for further evaluation. CT of the brain and cervical spine negative for any acute traumatic process. As she does have findings consistent with acute left sphenoid sinusitis however she is not complaining of any sinus pain or symptoms. Do not think this requires antibiotics or further workup at this time. X-ray of the clavicle, humerus and shoulder reviewed by myself as well as radiology consistent with an acute superiorly displaced oblique fracture of the distal clavicle. This is consistent with her physical exam and her chief complaint. Seems much more comfortable after receiving [place]. Will be discharged home with a sling and a prescription for [place]. Given outpatient orthopedic follow-up. Due to her age I doubt to be a surgical candidate. Nursing staff spoke with her daughter to update her on the plan of care. Patient and daughter agreeable with plan of care. Patient discharged home in stable and improved condition. Radiography Diagnostic Testing: Clinical Impression(s) from Imaging Studies Brain CT 04/25/23 23:01 IMPRESSION: 1. Chronic involutional changes of the brain. 2. Acute left sphenoid sinusitis. Electronically Signed: Edward Dick MD at 23:31 EST , Cervical Spine CT 04/25/23 23:01 IMPRESSION: 1. No acute fracture or subluxation. 2. Straightening of the normal lordotic curvature possibly from muscular spasm. Electronically Signed: Edward Dick MD at 23:54 EST , Humerus X-Ray 04/25/23 23:02 IMPRESSION: Normal x-ray examination of the humerus. Electronically Signed: Edward Dick MD at 23:56 EST Reading Location ID and State: [id number] / [employer] Tel , Service support , Shoulder X-Ray 04/25/23 23:02 IMPRESSION: Acute superiorly displaced oblique fracture of the distal left clavicle just proximal to the acromioclavicular joint. Electronically Signed: Edward Dick MD at 23:56 EST , Clavicle X-Ray 04/25/23 23:20 IMPRESSION: Acute superiorly displaced oblique fracture of the distal left clavicle just proximal to the acromioclavicular joint. Electronically Signed: Edward Dick MD at 23:54 EST Reading Location ID and State: [id number] / [employer] Tel , Service support , Discharge Plan Triage Chief Complaint: Fall ED Provider: Katherin Chu Dx/Rx/DC Orders Clinical Impression: Closed head injury, Closed displaced fracture of left clavicle Instructions: ED Fracture, Clavicle, ED Fall Prevention Prescriptions: New hydrocodone-acetaminophen 5-325 mg tablet 1 tab PO Q6H PRN PRN (Reason: Pain) 3 Days Qty: 12 0RF No Action losartan 100 MG tablet 100 mg PO QHS buspirone 15 MG tablet 15 mg PO TID paroxetine HCl 37.5 MG tablet extended release 24 hr 37.5 mg PO DAILY Rx Instructions: GIVE IN ADDITION TO 25MG DOSE multivitamin 1 EACH tablet 1 ea PO DAILY ascorbic acid (vitamin C) 500 MG tablet 500 mg PO DAILY atenolol 50 MG tablet 50 mg PO DAILY paroxetine HCl 25 MG tablet extended release 24 hr 25 mg PO DAILY Rx Instructions: GIVE IN ADDITION TO 37.5MG DOSE calcium carbonate-vitamin D3 1 EACH tablet 1 ea PO BID ipratropium-albuterol 3 ML solution for nebulization 3 ml INHALATION Q4HWA.RT 0RF venlafaxine [Effexor XR] 37.5 mg Capsule,Extended Release 24hr 37.5 mg PO DAILY loperamide [Imodium A-D] 2 mg Tablet 2 mg PO Q6H PRN (Reason: Diarrhea) triamcinolone acetonide 0.1 % Cream 1 applic TOPICAL Q6H PRN (Reason: Rash) pantoprazole 40 mg Tablet,Delayed Release (Dr/Ec) 40 mg PO DAILY folic acid 1 mg Tablet 1 mg PO DAILY memantine [Namenda] 10 mg Tablet 10 mg PO BID fluoride (sodium) [PreviDent 5000 Booster Plus] 1.1 % Paste cholecalciferol (vitamin D3) [Vitamin D3] 50 mcg (2,000 unit) Tablet 50 mcg PO DAILY acetaminophen [Tylenol] 325 mg Capsule 650 mg PO Q4H PRN (Reason: Pain/fever) tamsulosin [Flomax] 0.4 mg capsule 0.4 mg PO DAILY 30 Days Qty: 30 0RF Primary Care Provider: Krystle Cohen Referrals: Krystle Cohen MD [Primary Care Provider] - Osito Chan DO [Med Staff - Active Staff] - 1-2 Weeks Activity Restrictions/Additional Instructions: You have a displaced fracture of your left clavicle near the shoulder. This is the cause of your pain. You have been prescribed [place]. I do recommend taking daily MiraLAX or Colace to help with opioid-induced constipation. Wear sling as needed for comfort. Please follow-up with orthopedist. Disposition Disposition: [facility] Facility Discharge Location: [facility]
--- NOTE | 2023-04-25 23:20 | RAD_ITS ---
STUDY: X-RAY - LEFT CLAVICLE REASON FOR EXAM: Female, 82 years old. Injury/Pain TECHNIQUE: 2 view(s) of the clavicle. COMPARISON: None. FINDINGS: Acute superiorly displaced oblique fracture of the distal left clavicle just proximal to the acromioclavicular joint. Normal acromioclavicular articulation. Normal visualized sternoclavicular articulation. Normal visualized pulmonary apex. RAD/Clavicle IMPRESSION: Acute superiorly displaced oblique fracture of the distal left clavicle just proximal to the acromioclavicular joint. Electronically Signed: Edward Dick MD at 23:54 EST ,
[2023-04-25] MEDS: HYDROcodone Bitartrate/Apap 5/325 Tablet PO (23:38)
--- NOTE | 2023-04-26 00:50 | ED.RN ---
CALLED PT'S SON ROOSEVELT COOPER AT [phone] BECK'S REQUEST TO INFORM HIM THAT PT HAS A FRACTURED LEFT CLAVICLE AND IS TO F/U WITH ORTHO.
[2023-04-26 02:08] VITALS: RESP 15
[2023-04-26 02:27] VITALS: BP 139/87; PULSE 107; RESP 15; O2SAT 94
[2023-04-26 04:00] VITALS: RESP 16
== END 2023-04-26 06:56 | disposition skilled nursing facility (03) ==
PROVIDERS: Emergency Provider Emergency Medicine; PCP Internal Medicine; Visit Provider Emergency Medicine
DX: S09.90XA Unspecified injury of head, initial encounter (principal); S42.002A Fracture of unspecified part of left clavicle, initial encounter for closed fracture; W19.XXXA Unspecified fall, initial encounter; Z87.891 Personal history of nicotine dependence
CPT/HCPCS: 70450; 72125; 73000; 73030; 73060; 99282